=== PATIENT | female | born 1950 | race Caucasian/White ===

== ENCOUNTER 2018-05-22 01:21 | Outpatient (RCR) | payer OTHER, SELFPAY ==
[2018-05-22] MEDS: Denosumab 60 MG/ML SYR SC (11:10)
== END 2018-06-18 23:59 | disposition home or self-care (01) ==
LOC: INF 01:21
DX: M81.0 Age-related osteoporosis without current pathological fracture (principal)
CPT/HCPCS: 96372; J0897

== ENCOUNTER 2018-06-02 10:22 | Outpatient (CLI) | payer OTHER, SELFPAY ==
--- NOTE | 2018-06-02 09:00 | MERGE_ITS ---
*[facility]* *[facility]* [address] [place] [address] Date of study: 06/02/2018 Transthoracic Echocardiography M-mode, complete 2D, complete spectral Doppler, and color Doppler *STUDY CONCLUSIONS* Summary: 1. Left ventricle: The cavity size was normal. Systolic function was normal. The estimated ejection fraction was 55-60%. Wall motion was normal; there were no regional wall motion abnormalities. The study is not technically sufficient to allow evaluation of LV diastolic function. There was no evidence of elevated ventricular filling pressure by Doppler parameters. 2. Mitral valve: There was moderate regurgitation. 3. Right ventricle: The cavity size was normal. Wall thickness was normal. Systolic function was normal. 4. Atrial septum: No defect or patent foramen ovale was identified. 5. Pulmonary arteries: Pulmonary systolic pressure was in the range of 25mm Hg to 35mm Hg. 6. Inferior vena cava: The vessel was patent and normal in size. The respirophasic diameter changes were in the normal range (greater than or equal to 50%), consistent with normal central venous pressure. *PATIENT PRESENTATION* Height: 170.2cm ((67in) ) S/D Pressure: 144 / 89 Weight: 68kg ((149.7lb) ) BSA: 1.8m^2 Test start time: 09:40 AM. Test stop time: 10:00 AM. PERFORMING Unknown PERFORMING [facility] LOCAL ANNOUNCER RT Kate (Yohan)(CT), [facility] ORDERING Diana Rouse REFERRING Diana Rouse *PROCEDURE DATA* Procedure information: The patient was identified by two identifiers. This study was interpreted by [facility]. Pertinent images and digital data are archived for permanent storage and are available for subsequent review. No prior study was available for comparison. Study status: Routine. Transthoracic echocardiography. M-mode, complete 2D, complete spectral Doppler, and color Doppler. A Transthoracic Echocardiogram was performed. Scanning was performed from the parasternal, apical, subcostal, and suprasternal notch acoustic windows. Images were obtained using an [id number] cardiac ultrasound machine. Image quality was adequate. Study completion: The patient tolerated the procedure well. History: PMH: Atrial fibrillation. *CARDIAC ANATOMY* Left ventricle: The cavity size was normal. Systolic function was normal. The estimated ejection fraction was 55-60%. Wall motion was normal; there were no regional wall motion abnormalities. The study is not technically sufficient to allow evaluation of LV diastolic function. There was no evidence of elevated ventricular filling pressure by Doppler parameters. Aortic valve: Trileaflet. Doppler: There was no stenosis. There was no significant regurgitation. VTI ratio of LVOT to aortic valve: 0.92. Valve area (VTI): 2.7cm^2. Indexed valve area (VTI): 1.5cm^2/m^2. Peak velocity ratio of LVOT to aortic valve: 0.88. Valve area (Vmax): 2.6cm^2. Indexed valve area (Vmax): 1.4cm^2/m^2. Mean velocity ratio of LVOT to aortic valve: 0.86. Valve area (Vmean): 2.5cm^2. Indexed valve area (Vmean): 1.4cm^2/m^2. Mean gradient (S): 1.9mm Hg. Peak gradient (S): 3.4mm Hg. Aorta: Aortic root: The aortic root was normal in size. Ascending aorta: The ascending aorta was mildly dilated. Mitral valve: Doppler: There was no evidence for stenosis. There was moderate regurgitation. Valve area by pressure half-time: 5.8cm^2. Indexed valve area by pressure half-time: 3.2cm^2/m^2. Peak gradient (D): 4.2mm Hg. Left atrium: The atrium was normal in size. Atrial septum: No defect or patent foramen ovale was identified. Right ventricle: The cavity size was normal. Wall thickness was normal. Systolic function was normal. Pulmonic valve: Doppler: There was no evidence for stenosis. There was mild regurgitation. Peak gradient (S): 2.4mm Hg. Tricuspid valve: Doppler: There was mild regurgitation. Pulmonary artery: Poorly visualized. Pulmonary systolic pressure was in the range of 25mm Hg to 35mm Hg. Right atrium: The atrium was normal in size. Pericardium: There was no pericardial effusion. Systemic veins: Inferior vena cava: Well visualized. The vessel was patent and normal in size. The respirophasic diameter changes were in the normal range (greater than or equal to 50%), consistent with normal central venous pressure. Baseline ECG: Atrial fibrillation. Measurements Left ventricle Value Reference LV ID, ED, PLAX 4.6 cm 3.5 - 6.0 LV ID, ES, PLAX 3.3 cm 2.1 - 4.0 LV PW thickness, ED, PLAX 0.7 cm LV end-diastolic volume, 1-p A2C 66 ml LV ejection fraction, 1-p A2C 58 % LV end-diastolic volume, 1-p A4C 67 ml LV ejection fraction, 1-p A4C 50 % LV e', lateral 0.091 m/sec LV E/e', lateral 11 LV e', medial 0.121 m/sec LV E/e', medial 9 LV e', average 0.106 m/sec LV E/e', average 10 Ventricular septum Value Reference IVS thickness, ED, PLAX 0.7 cm LVOT Value Reference LVOT ID, A-P 1.9 cm LVOT area 2.9 cm^2 LVOT peak velocity, S 0.82 m/sec LVOT mean velocity, S 0.57 m/sec LVOT VTI, S 19.4 cm LVOT peak gradient, S 2.7 mm Hg LVOT mean gradient, S 1.5 mm Hg Stroke volume (SV), LVOT DP 57 ml Stroke index (SV/bsa), LVOT DP 32 ml/m^2 Aortic valve Value Reference Aortic valve peak velocity, S 0.9 m/sec Aortic valve mean velocity, S 0.66 m/sec Aortic valve VTI, S 21.0 cm Aortic mean gradient, S 1.9 mm Hg Aortic peak gradient, S 3.4 mm Hg VTI ratio, LVOT/AV 0.92 Aortic valve area, VTI 2.7 cm^2 Velocity ratio, peak, LVOT/AV 0.88 Aortic valve area, peak velocity 2.6 cm^2 Velocity ratio, mean, LVOT/AV 0.86 Aortic valve area, mean velocity 2.5 cm^2 Aortic valve area/bsa, mean velocity 1.4 cm^2/m^2 Aorta Value Reference Aortic root ID, ED 3.1 cm Ascending aorta ID, A-P, S 3.4 cm RVOT Value Reference RVOT VTI, S 13.9 cm Left atrium Value Reference LA ID, A-P, ES 3.3 cm LA ID/bsa, A-P 1.8 cm/m^2 <=2.2 LA area, ES, A4C 15.6 cm^2 8.8 - 23.4 LA area, ES, A2C 23 cm^2 LA volume/bsa, ES, 1-p A4C 23 ml/m^2 LA volume, ES, 2-p 58 ml LA volume/bsa, ES, 2-p 32 ml/m^2 LA/aortic root ratio 1.07 Mitral valve Value Reference Mitral E-wave peak velocity 1.03 m/sec Mitral deceleration time (L) 132 ms 150 - 230 Mitral pressure half-time 38 ms Mitral peak gradient, D 4.2 mm Hg Mitral valve area, PHT, DP 5.8 cm^2 Tricuspid valve Value Reference Tricuspid regurg peak velocity 2.5 m/sec Tricuspid peak RV-RA gradient 25.6 mm Hg Right atrium Value Reference RA area, ES, A4C 15.1 cm^2 8.3 - 19.5 Pulmonic valve Value Reference Pulmonic peak gradient, S 2.4 mm Hg Legend: (L) and (H) leanna values outside specified reference range. I have personally reviewed the images and have reviewed and edited the reported findings. Electronically signed by Sean Thompson MD 06/02/2018 17:05
== END 2018-06-02 10:42 ==
PROVIDERS: Visit Provider Internal Medicine Cardiovascular Disease
DX: I48.91 Unspecified atrial fibrillation (principal); I34.0 Nonrheumatic mitral (valve) insufficiency
CPT/HCPCS: 93306

== ENCOUNTER 2018-10-06 08:17 | Outpatient (CLI) | payer OTHER, SELFPAY ==
[2018-10-06 09:34] LABS: Magnesium 1.9 mg/dL (1.8-2.4)
== END 2018-10-06 08:37 ==
PROVIDERS: PCP Family Medicine; Visit Provider Internal Medicine Cardiovascular Disease
DX: I48.91 Unspecified atrial fibrillation (principal)
CPT/HCPCS: 36415; 83735

== ENCOUNTER 2018-11-21 02:48 | Outpatient (RCR) | payer OTHER, SELFPAY ==
[2018-11-21] MEDS: Denosumab 60 MG/ML SYR SC (12:41)
== END 2018-12-16 23:59 | disposition home or self-care (01) ==
LOC: INF 02:48
PROVIDERS: PCP Family Medicine; Referring Provider Internal Medicine Rheumatology; Visit Provider Family Medicine
DX: M81.0 Age-related osteoporosis without current pathological fracture (principal)
CPT/HCPCS: 96372; J0897

== ENCOUNTER 2019-01-06 00:11 | Outpatient (CLI) | payer OTHER, SELFPAY ==
--- NOTE | 2019-01-06 13:16 | DI.DEXA_ITS ---
SYMPTOM/DIAGNOSIS: IDIOPATHIC OSTEOPOROSIS, M81.8 DEXA SCAN: The scanogram reveals a compression fracture at approximately the D 9 level and is otherwise unremarkable. For the left forearm, a T score of -1.9 and a Z score of 0.0 indicate osteopenia and an increased fracture risk and represent a -4.9% interval decrease in mineralization when compared with the prior study of 01/01/17. For the left hip, a T score of -2.4 and a Z score of -1.0 indicate osteoporosis and a high fracture risk and represent a +2.1% interval increase in mineralization when compared with the prior study of 01/01/17. For the lumbar spine, a T score of -1.0 and a Z score of 1.1 are within the normal range.
== END 2019-01-06 00:31 ==
PROVIDERS: PCP Family Medicine; Visit Provider Internal Medicine Rheumatology
DX: M81.0 Age-related osteoporosis without current pathological fracture (principal); M85.88 Other specified disorders of bone density and structure, other site; M48.54XD Collapsed vertebra, not elsewhere classified, thoracic region, subsequent encounter for fracture with routine healing
CPT/HCPCS: 77080

== ENCOUNTER 2019-01-15 01:37 | Outpatient (CLI) | payer OTHER, SELFPAY ==
--- NOTE | 2019-01-15 10:29 | DI.MAMMO_ITS ---
SYMPTOMS/DIAGNOSIS: SCREENING, Z12.31 MAMMOGRAM: Mammograms were interpreted according to the usual protocol including computer analysis with CAD system, tomosynthesis and C view imaging. The breast tissue is of moderate radiodensity. When compared with prior images, there is a question regarding interval development of a lateral right breast nodule. Further assessment with rolled medial and compression spot films of the right breast and ultrasound is recommended. SUMMARY: Question posterior lateral right breast nodule. Further evaluation with a rolled medial and compression CC spot films and ultrasound is recommended. Category 0. Breast density Category B. MQSA ASSESSMENT OF FINDINGS: Incomplete: Needs additional imaging evaluation. Category 0. Patient will receive a letter notifying them of these results. BI-RADS category B. There are scattered areas of fibroglandular density.
== END 2019-01-15 01:57 ==
PROVIDERS: PCP Family Medicine; Visit Provider Family Medicine
DX: Z12.31 Encounter for screening mammogram for malignant neoplasm of breast (principal); R92.8 Other abnormal and inconclusive findings on diagnostic imaging of breast
CPT/HCPCS: 77063; 77067

== ENCOUNTER 2019-01-16 09:16 | Outpatient (CLI) | payer OTHER, SELFPAY ==
--- NOTE | 2019-01-16 15:04 | DI.COMBO_ITS ---
SYMPTOMS/DIAGNOSIS: F/U MAMMO, ? NEW LATERAL RIGHT BREAST NODULE ADDITIONAL VIEWS OF THE RIGHT BREAST AND RIGHT BREAST ULTRASOUND: Additional images are interpreted according to the usual protocol including tomosynthesis and 2D imaging. Additional views of the right breast fail to show a persistent discrete mass. The area appears to represent pectoralis muscle. Right breast ultrasound was performed. The upper outer and lower outer quadrants of the right breast were evaluated. No cystic or solid masses are seen. IMPRESSION: No definite evidence for malignancy. A six-month follow-up right mammogram is requested. Category 3, breast density B. The findings were discussed with the patient on the date of the examination. MQSA ASSESSMENT OF FINDINGS: Probably benign. Six month follow-up recommended. Category 3. Patient will receive a letter notifying them of these results. BI-RADS category B. There are scattered areas of fibroglandular density.
== END 2019-01-16 09:36 ==
PROVIDERS: PCP Family Medicine; Visit Provider Family Medicine
DX: Z12.31 Encounter for screening mammogram for malignant neoplasm of breast (principal); R92.8 Other abnormal and inconclusive findings on diagnostic imaging of breast; N64.59 Other signs and symptoms in breast
CPT/HCPCS: 76642; 77063; 77067

== ENCOUNTER 2019-06-17 01:02 | Outpatient (CLI) | payer OTHER, SELFPAY ==
--- NOTE | 2019-06-17 13:38 | DI.US_ITS ---
APPROVED REPORT Conclusion Left Ventricle : The left ventricle is normal size. There is normal LV segmental wall motion. LVEF is estimated to be 55-60%. Diastolic function is indeterminate but filling pressures appear normal. Right Ventricle : The right ventricle is normal size. The right ventricular systolic function is norm al. Atria : The left atrium size is enlarged. The right atrium size is normal. Aortic Valve : The aortic valve is normal in structure. Aortic valve is trileaflet. There is no aorti c valvular stenosis. No aortic regurgitation is present. Mitral Valve : Mitral valve regurgitation is poorly visualized but appears to be posteriorly directed and moderate. There is no significant mitral stenosis. Tricuspid Valve : The tricuspid valve leaflets are thickened , but open well. Mild to moderate tricus pid regurgitation. Great Vessels : IVC is normal in size and collapses >50% with inspiration. RVSP is between 18-22 mmH g Compared to echocardiogram dated 06/02/2018, there is no significant change. EXAM: Comprehensive 2D, Doppler, and color-flow Echocardiogram Patient Location: Out-Patient Building Construction Contractor: Rossi Andrews [facility] ([facility]) Indications: atrial fibrillation i48.91 Left Ventricle The left ventricle is normal size. The left ventricular ejection fraction is within the normal range. There is normal left ventricular wall thickness. There is normal LV segmental wall motion. Diastolic function is indeterminate but filling pressures appear normal. LVEF is estimated to be 55-60%. Right Ventricle The right ventricle is normal size. The right ventricular systolic function is normal. Atria The left atrium size is enlarged. The right atrium size is normal. Aortic Valve The aortic valve is normal in structure. Aortic valve is trileaflet. There is no aortic valvular sten osis. No aortic regurgitation is present. Mitral Valve Mitral valve leaflets are thickened. No evidence of mitral valve stenosis. Mitral valve area by press ure half-time is 4.14 cm??? Mitral valve regurgitation is poorly visualized but appears to be posteri emelina directed and moderate. Tricuspid Valve The tricuspid valve leaflets are thickened , but open well. Mild to moderate tricuspid regurgitation. The RVSP is normal. Great Vessels The aortic root is normal in size. The ascending aorta is top normal in size at 3.5cm. IVC is normal in size and collapses >50% with inspiration. Pericardium There is no pericardial effusion. 2D Dimensions IVSd 0.89 cm F: 0.6-1.0 LV EDV A2C 93.40 mL PWd 0.82 cm F: 0.6 - 1.0 LV EDV A4C 56.30 mL LVDd 4.31 cm F: 3.9 - 5.3 LA Volume Index A2C 39.85 mL/m2 LVDs 2.96 cm F: 2.2 - 3.5 LA Volume Index A4C 32.48 mL/m2 Aortic Root 3.00 cm F: 2.7 - 3.3 LA Volume Index Biplane 37.46 mL/m2 RA Area A4C 16.79 cm2 LA Area A4C 18.94 cm2 LVOT 1.90 cm (M/F) 1.5-2.5 LA Area A2C 21.84 cm2 Ascending Aorta 3.52 cm F: 2.3 - 3.1 EF AP4 60.04 % LVEF (Teich) 59.52 % EF AP2 50.86 % LVEF (Huertas's) 56.52 % F: 54 - 74 EF BP 56.52 % FS 31.37 % LV Diastology E Decel Time 183.00 (160-240 msec) E/A Ratio 1.4 MED E' 0.08 (>0.07 m/s) LV E/e MED 7.65 (<14) LAT E' 0.11 (>0.1 m/s) LV E/e LAT 5.55 (<14) Aortic Valve LVOT Area 2.84 cm2 LVOT Peak John. 0.82 m/s LVOT Mean John. 0.61 m/s LVOT Peak Gr. 2.67 mmHg SAUNDRA Vmax Index 1.17 cm2/m2 LVOT Mean Gr. 1.61 mmHg LVOT VTI 0.20 m SAUNDRA Mean John. Index 1.24 cm2/m2 AoV Peak John. 1.11 (0.5-1.3 m/s) AoV Mean John. 0.78 m/s AO Peak GR. 4.91 mmHg AO Mean GR. 2.63 (<5 mmHg) AO VTI 0.25 (0.18-0.25 m) SAUNDRA (VTI) 2.25 (2.5-4.5 cm2) SAUNDRA (VTI) Index 1.26 cm/m2 Mitral Valve MV E Max John. 0.64 (0.4-1.3 m/s) MV A Velocity 0.47 (0.4-1.3 m/s) E/A Ratio 1.34 MV Decel. Time 183.00 (160-240 msec) MV PHT 53.20 msec MVA PHT 4.14 cm2 Pulmonary Valve PV Peak Velocity 0.93 (0.5-1.5 m/s) Tricuspid Valve TR P. Velocity 2.12 m/s TV Regurg Vmax 2.12 m/s TR P. Gradient 17.94 mmHg
== END 2019-06-17 01:22 ==
PROVIDERS: PCP Family Medicine; Visit Provider Internal Medicine Cardiovascular Disease
DX: I48.91 Unspecified atrial fibrillation (principal); I36.8 Other nonrheumatic tricuspid valve disorders; I35.8 Other nonrheumatic aortic valve disorders
CPT/HCPCS: 93306

== ENCOUNTER 2019-06-17 01:33 | Outpatient (RCR) | payer OTHER, SELFPAY ==
[2019-06-17] MEDS: Denosumab 60 MG/ML SYR SC (12:21)
== END 2019-06-18 23:59 | disposition home or self-care (01) ==
LOC: INF 01:33
PROVIDERS: PCP Family Medicine; Visit Provider Family Medicine
DX: M81.0 Age-related osteoporosis without current pathological fracture (principal)
CPT/HCPCS: 96372; J0897

== ENCOUNTER 2019-06-17 12:22 | Outpatient (CLI) | payer OTHER, SELFPAY ==
[2019-06-17 14:26] LABS: Anion Gap 9.7 mmol/L (3-11); BUN 22 mg/dL (7-18); CO2 27.3 mmol/L (21.0-32.0); CREATININE 0.88 mg/dL (0.55-1.02); Calcium 9.7 mg/dL (8.5-10.1); Chloride 104 mmol/L (98-107); Glucose 87 mg/dL (70-100); Magnesium 1.8 mg/dL (1.8-2.4); Potassium 4.5 mmol/L (3.5-5.1); Sodium 141 mmol/L (136-145)
== END 2019-06-17 12:42 ==
LOC: DI 13:35 → LBO 07-06 12:22
PROVIDERS: Internal Medicine Cardiovascular Disease; PCP Family Medicine; Visit Provider Family Medicine
DX: I48.91 Unspecified atrial fibrillation (principal)
CPT/HCPCS: 36415; 80048; 83735

== ENCOUNTER 2019-07-14 00:51 | Outpatient (CLI) | payer OTHER, SELFPAY ==
--- NOTE | 2019-07-14 09:46 | DI.MAMMO_ITS ---
EXAM: MG MAMMO DIAGNOSTIC UNI CLINICAL HISTORY: 6 MO F/U, F/U TO [facility] MAMMO TECHNIQUE: Bilateral full field digital CC and MLO mammographic images were obtained with 3D tomosyn thesis and utilizing computer aided detection (CAD). COMPARISON: 2010 through 15 Jan 2019 FINDINGS: The right breast is composed of scattered fibroglandular densities, breast density category B. There are no suspicious masses or suspicious microcalcifications. The previously questioned area of nodul arity in the lateral posterior right breast is not seen on the current exam. No new abnormalities ar e seen. IMPRESSION: BI-RADS category 1, negative mammogram. Bilateral screening should be resumed in 6 months. BI-RADS Cat 1 - Negative. Breast Density - Category B - Scattered areas of fibroglandular density.
== END 2019-07-14 01:11 ==
PROVIDERS: PCP Family Medicine
DX: Z12.31 Encounter for screening mammogram for malignant neoplasm of breast (principal); R92.8 Other abnormal and inconclusive findings on diagnostic imaging of breast; N64.59 Other signs and symptoms in breast
CPT/HCPCS: 77061; 77065; G0279

== ENCOUNTER 2019-12-16 04:12 | Outpatient (RCR) | payer OTHER, SELFPAY | END 2019-12-17 23:59 | disposition home or self-care (01) | LOC: INF 04:12 | PROVIDERS: PCP Family Medicine; Visit Provider Family Medicine | DX: R69 Illness, unspecified (principal) ==

== ENCOUNTER 2019-12-22 02:05 | Outpatient (RCR) | payer OTHER, SELFPAY ==
[2019-12-22] MEDS: Denosumab 60 MG/ML SYR SC (11:38)
== END 2020-01-17 23:59 | disposition home or self-care (01) ==
LOC: INF 02:05
PROVIDERS: PCP Family Medicine; Visit Provider Internal Medicine
DX: M81.8 Other osteoporosis without current pathological fracture (principal)
CPT/HCPCS: 96372; J0897

== ENCOUNTER 2020-01-20 08:36 | Outpatient (REF) | payer OTHER, SELFPAY ==
[2020-01-20 21:22] LABS: HCT 41.5 % (36.0-46.0); HGB 13.7 g/dL (12.0-15.5); Mean Corpuscular Hemoglobin 34.5 pg (27.0-33.0); Mean Corpuscular Volume 104.5 fL (80-95); Platelet Count 254 x1000/uL (130-400); RBC 3.97 m/cumm (4.00-5.20); RBC Distribution Width 12.9 % (11.7-14.6); White Blood Cell Count 6.09 k/cumm (4.4-10.8)
[2020-01-20 21:46] LABS: ALT 29 U/L (14-59); AST 21 U/L (15-37); Albumin 3.8 g/dL (3.4-5.0); Alkaline Phosphatase 34 U/L (46-116); Anion Gap 4.5 mmol/L (3-11); BUN 13 mg/dL (7-18); Bilirubin, Total 0.6 mg/dL (0.2-1.0); CO2 31.5 mmol/L (21.0-32.0); CREATININE 0.93 mg/dL (0.55-1.02); Calcium 9.4 mg/dL (8.5-10.1); Calculated LDL 131 mg/dL (<100); Chloride 105 mmol/L (98-107); Cholesterol 237 mg/dL (<200); Glucose 92 mg/dL (74-106); HDL Cholesterol 81 mg/dL (40-60); Potassium 4.6 mmol/L (3.5-5.1); Sodium 141 mmol/L (136-145); Total Protein 6.8 g/dL (6.4-8.2); Triglyceride 126 mg/dL (<150)
== END 2020-01-20 08:56 ==
LOC: NCHCN 08:36
PROVIDERS: PCP Family Medicine; Visit Provider Family Medicine
DX: E78.5 Hyperlipidemia, unspecified (principal); I48.91 Unspecified atrial fibrillation
CPT/HCPCS: 80053; 80061; 85027

== ENCOUNTER 2020-02-29 00:45 | Outpatient (CLI) | payer OTHER, SELFPAY ==
--- NOTE | 2020-02-29 | DI.MAMMO_ITS ---
EXAM: MG MAMMO SCREENING CLINICAL HISTORY: SCREENING, Z12.39 TECHNIQUE: Bilateral full field digital CC and MLO mammographic images were obtained with 3D tomosyn thesis and utilizing computer aided detection (CAD). COMPARISON: Available for comparison. FINDINGS: Masses/Architectural Distortion: None seen. Microcalcifications: No suspicious pleomorphic-type are seen. Skin Thickening/Nipple Retraction: None. IMPRESSION: 1. No significant interval change with no specific features of malignancy noted. 2. Unless there is more urgent need, screening mammography is recommended, as per [place] guidelines. BI-RADS Category 1 - Negative Breast Density - Category B - Scattered areas of fibroglandular density A negative radiographic report should not delay biopsy if a dominant or clinically suspicious mass is present. Up to ten percent of cancers are not identified on mammography. A negative report may reinforce clinical impression. Adenosis and dense breasts may obscure an underlying neoplasm. False positive reports average 6 to 10%. Patient will receive a letter notifying them of these results.
== END 2020-02-29 01:05 ==
PROVIDERS: PCP Family Medicine; Visit Provider Family Medicine
DX: Z12.31 Encounter for screening mammogram for malignant neoplasm of breast (principal)
CPT/HCPCS: 77063; 77067

== ENCOUNTER 2020-06-09 12:39 | Outpatient (REF) | payer OTHER, SELFPAY ==
[2020-06-09 20:59] LABS: Anion Gap 5.2 mmol/L (3-11); BUN 17 mg/dL (7-18); CO2 30.8 mmol/L (21.0-32.0); CREATININE 0.89 mg/dL (0.55-1.02); Calcium 9.7 mg/dL (8.5-10.1); Chloride 103 mmol/L (98-107); Glucose 92 mg/dL (74-106); Magnesium 2.2 mg/dL (1.8-2.4); Potassium 4.6 mmol/L (3.5-5.1); Sodium 139 mmol/L (136-145)
== END 2020-06-09 12:59 ==
LOC: NCHCN 12:39
PROVIDERS: PCP Family Medicine; Visit Provider Family Medicine
DX: I48.91 Unspecified atrial fibrillation (principal)
CPT/HCPCS: 80048; 83735

== ENCOUNTER 2020-06-23 01:42 | Outpatient (RCR) | payer OTHER, SELFPAY ==
[2020-06-23] MEDS: Denosumab 60 MG/ML SYR SC (12:05)
== END 2020-07-18 23:59 | disposition home or self-care (01) ==
LOC: INF 01:42
PROVIDERS: PCP Family Medicine; Visit Provider Family Medicine
DX: M81.8 Other osteoporosis without current pathological fracture (principal)
CPT/HCPCS: 96372; J0897

== ENCOUNTER 2020-06-26 14:43 | Emergency (ER) | payer OTHER, SELFPAY ==
[2020-06-26 14:50] VITALS: BP 149/77; PULSE 61; RESP 20; TEMP 36.8; O2SAT 94
--- NOTE | 2020-06-26 15:05 | ED.GENADUL_ITS ---
Discharge Plan Disposition Patient Disposition: HOME Condition: Stable Discharge Details Clinical Impression: Atypical mycobacterial infection of lung, Hemoptysis, Lung nodule Primary Care Provider: Yahaira Araiza ED Provider: Genny Mckeon Home Meds and New Rx's Prescriptions: New amoxicillin-pot clavulanate [Augmentin] 875-125 mg tablet 1 tab PO BID 10 Days Qty: 20 RF: 0 Continued multivitamin [Multi-Day] 1 EACH tablet 1 ea PO DAILY RF: 0 sotalol [Sotalol AF] 80 MG tablet 80 mg PO QAM RF: 0 calcium carbonate-vitamin D3 1 EACH tablet 1 ea PO BID RF: 0 sotalol [Betapace AF] 120 MG tablet 120 mg PO QPM RF: 0 alprazolam 0.5 MG tablet 0.5 mg PO PRN PRNRF: 0 famotidine 20 MG tablet 20 mg PO DAILY RF: 0 zolpidem 10 MG tablet 5 mg PO HS PRN PRNRF: 0 oxybutynin chloride 5 MG tablet 5 mg PO DAILY RF: 0 cyanocobalamin (vitamin B-12) [Vitamin B-12] 1,000 mcg Tablet Extended Release 1,000 mcg PO DAILY RF: 0 bupropion HCl 100 mg tablet sustained-release 12 hr 100 mg PO DAILY RF: 0 Prolia 60 mg/mL syringe SUBCUT RF: 0 Xarelto 20 mg tablet 20 mg PO DAILY RF: 0 PreserVision AREDS-2 [id number] za-ztld-iu-mg capsule 1 tab PO DAILY RF: 0 Discharge Instructions Instructions: Pneumonitis (ED), Hemoptysis (ED) Additional Instructions: Take the antibiotics until finished. 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 Call your primary care doctor's office to confirm that this appointment has been made. Return immediately to the emergency department if you develop any worsening or new concerning symptoms such as fever, chest pain, shortness of breath or any other concerns. Discharge Data Discharge Date/Time-TO BE ENTERED AT DEPARTURE: 06/26/20 19:43 Discharge Physician: Genny Mckeon Medical Decision Making 1500 -- 70-year-old female with a history of atrial fibrillation on Xarelto, GERD, high cholesterol and anxiety presents for a cough for the past week and hemoptysis for the past [address] chest for further evaluation of abnormal findings on cxr noted by nurse practitioner at the urgent care. Patient has normal heart rate, respiratory rate and oxygen saturation. She appears nontoxic and is afebrile. She has no complaint of fever, chest pain or shortness of breath. Considering patient's remote history of smoking and chronic anticoagulation, will obtain a CT chest to rule out any acute disease. 1830 --labs reviewed and unremarkable. CT chest notes 1. No acute pulmonary embolism identified. 2. Findings of multifocal infectious small airways disease within the lungs as described above, which may be bacterial or mycobacterial etiology. Recommend clinical correlation. 3. There is a more isolated 5 x 5 mm right lower lobe nodule which is indeterminate and may be infectious but pulmonary neoplasm cannot be excluded. 4. 1.1 cm left adrenal nodule, indeterminate but likely benign. Consider 12 month follow-up adrenal CT. Images reviewed with [facility] pulmonology -findings appear likely consistent with an atypical mycobacterial infection. If antibiotics indicated would recommend treatment with Augmentin or Ceftin. No significant concern with right lower lobe lung nodule. Recommend follow-up with [facility] pulmonary clinic in the next 1 to 2 weeks. Patient reassessed and she still remains asymptomatic and feels good to go home. She was given 1 dose of Augmentin here and prescription to go. Advised to follow up with the primary care doctor for re-evaluation and to confirm that pulmonary appointment has been made. Usual and customary return precautions given prior to discharge. Medical Records Medical records reviewed: Yes I reviewed the patient's medical records. Imaging Data Radiologic Study: Radiologist's impression: CT Angiography Chest With Contrast Exam date and time: 06/26/2020 3:41 PM Age: 70 years old Clinical indication: Other: Hemoptysis, R/O acute pe TECHNIQUE: Imaging protocol: Computed tomographic angiography of the chest with intravenous contrast. 3D rendering (Not supervised by radiologist): MIP and/or 3D reconstructed images were created by the technologist. Contrast material: OMNIPAQUE 350; Contrast volume: 100 ml; Contrast route: INTRAVENOUS (IV); COMPARISON: CR LEFT RIBS TO INCLUDE CXR 10/20/2014 10:13 AM FINDINGS: Pulmonary arteries: No filling defects within the pulmonary arteries are identified to suggest pulmonary embolism. The central pulmonary arteries are not dilated. Aorta: Unremarkable. No aortic aneurysm. No aortic dissection. Lungs: There are mild pleuroparenchymal fibronodular changes at both lung apices. There is are regions of mild central peribronchial thickening. There are multifocal regions tiny subcentimeter nodular branching opacities (tree-in-bud opacities), consistent with infectious small airways disease. There is mild scarring/atelectasis within the medial segment of the right middle lobe, lingular segment of the left upper lobe and at the anterior base of the left lower lobe. There is a more isolated 5 x 5 mm lateral right lower lobe nodule on axial image 4 minutes 32, series 6 Pleural space: Unremarkable. No pneumothorax. No pleural effusion. Heart: There is no bowing of the interventricular septum or disproportionate enlargement of the right heart. There is mild overall cardiomegaly. There is no pericardial effusion. Lymph nodes: Unremarkable. No enlarged lymph nodes. Adrenals: There is a 1.1 cm left adrenal nodule which has a density 35 Hounsfield units on this postcontrast scan, indeterminate, as seen on image 615, series 7. Bones/joints: There appear to be old healed fractures of the left anterior 3rd and 4th ribs. No acute displaced fractures are identified. There is a moderate to severe anterior wedge compression deformity of the T8 vertebra with approximately 64% loss of anterior vertebral body height, which appears chronic. There is multilevel aspi-cm-bufbjjiu spondylosis of the mid and lower thoracic spine. Soft tissues: Unremarkable. IMPRESSION: 1. No acute pulmonary embolism identified. 2. Findings of multifocal infectious small airways disease within the lungs as described above, which may be bacterial or mycobacterial etiology. Recommend clinical correlation. 3. There is a more isolated 5 x 5 mm right lower lobe nodule which is indeterminate and may be infectious but pulmonary neoplasm cannot be excluded. For patients at low risk (minimal or absent history of smoking and of other known risk factors), no routine follow-up is indicated. For patients at high risk (history of smoking or of other known risk factors), consider optional CT Chest at 12 months. (Reference: Ros) 4. 1.1 cm left adrenal nodule, indeterminate but likely benign. Consider 12 month follow-up adrenal CT. (Miranda Harvey, ACR White Paper, 2017) Lab Data Lab results reviewed: Yes I reviewed the patient's lab results. Labs: Laboratory Tests Range/Units 06/26/20 06/26/20 06/26/20 15:00 15:00 15:00 WBC (4.4-10.8) 10^3/uL 8.66 RBC (3.93-5.22) 10^6/uL 4.11 Hgb (11.2-15.7) g/dL 14.1 Hct (36.0-46.0) % 43.3 MCV (80-95) fL 105.4 H MCH (27.0-33.0) pg 34.3 H MCHC (32.0-36.0) % 32.6 RDW (11.7-14.6) % 13.0 Plt Count (130-400) 10^3/uL 285 MPV (8.0-11.0) fL 10.5 Immature Gran % 0.3 Neutrophils % 59.9 Lymphocytes % 26.2 Monocytes % 10.6 Eosinophils % 2.3 Basophils % 0.7 Nucleated RBC % % 0 Absolute Neutrophils (1.2-6.7) 10^3/uL 5.18 Absolute Lymphocytes (1.2-3.4) 10^3/uL 2.27 Absolute Monocytes (0.1-0.8) 10^3/uL 0.92 H Absolute Eosinophils (0.0-0.7) 10^3/uL 0.20 Absolute Basophils (0.0-0.2) 10^3/uL 0.06 RBC Morphology See below Macrocytosis 3+ PT (9.3-11.0) sec 13.6 H INR (0.9-1.1) 1.4 H APTT (21.0-27.5) sec 30.1 H Sodium (136-145) mmol/L 138 Potassium (3.5-5.1) mmol/L 3.9 Chloride (98-107) mmol/L 99 Carbon Dioxide (21.0-32.0) mmol/L 30.0 Anion Gap (3-11) mmol/L 9.0 BUN (7-18) mg/dL 19 H Creatinine (0.55-1.02) mg/dL 0.99 Estimated GFR/1.73 m2 (mL/min/1.73m2) 55.29 Glucose (74-106) mg/dL 93 Calcium (8.5-10.1) mg/dL 9.5 Magnesium (1.8-2.4) mg/dL 2.2 Total Bilirubin (0.2-1.0) mg/dL 0.6 AST (15-37) U/L 23 ALT (14-59) U/L 25 Alkaline Phosphatase (46-116) U/L 45 L Troponin I (<0.06) ng/mL < 0.05 Total Protein (6.4-8.2) g/dL 8.4 H Albumin (3.4-5.0) g/dL 4.3 HPI General Mode of arrival: ambulatory . Date/Time Provider Initiated Documentation: 06/26/20 14:53 . Limitations to Documentation: no limitations . Information obtained by: patient . HPI Narrative: Patient is a 70-year-old female with a history of atrial fibrillation on Xarelto, osteoporosis, anxiety and hyperlipidemia who presents for cough x1 week, hemoptysis x2 days, and for possible CT chest for abnormal findings noted on chest x-ray at urgent care today. Patient states for the past week she feels that she has had chest congestion causing her to frequently cough and bring up clear mucus. She states the past 2 days she has been coughing up blood-tinged mucus. She states she saw urgent care today for these complaints and had a chest x-ray which was read by virtual radiology as negative but a nurse practitioner Servando Welch thought there was some concerning findings in the left lower lung base and referred her here for further evaluation including a CT chest. She also had a negative rapid Covid test there today. She denies any recent travel, Related Data Home Medications Medication Instructions Recorded Confirmed alprazolam 0.5 mg PO PRN PRN 12/13/15 06/26/20 calcium carbonate-vitamin D3 1 ea PO BID 12/13/15 06/26/20 famotidine 20 mg PO DAILY 12/13/15 06/26/20 multivitamin [Multi-Day] 1 ea PO DAILY 12/13/15 06/26/20 oxybutynin chloride 5 mg PO DAILY 12/13/15 06/26/20 sotalol [Betapace AF] 120 mg PO QPM 12/13/15 06/26/20 sotalol [Sotalol AF] 80 mg PO QAM 12/13/15 06/26/20 zolpidem 5 mg PO HS PRN PRN 12/13/15 06/26/20 PreserVision AREDS-2 1 tab PO DAILY 06/26/20 06/26/20 Prolia mg SUBCUT 06/26/20 Xarelto 20 mg PO DAILY 06/26/20 06/26/20 amoxicillin-pot clavulanate 1 tab PO BID 10 Days #20 tab 06/26/20 [Augmentin] bupropion HCl 100 mg PO DAILY 06/26/20 06/26/20 cyanocobalamin (vitamin B-12) 1,000 mcg PO DAILY 06/26/20 06/26/20 [Vitamin B-12] Previous Rx's Medication Instructions Recorded amoxicillin-pot clavulanate 1 tab PO BID 10 Days #20 tab 06/26/20 [Augmentin] Allergies Allergy/AdvReac Type Severity Reaction Status Date / Time ibandronate sodium AdvReac Unverified 06/26/20 14:52 [From Tyrel] General Stated Complaint: RespSymp ISRA: 3 Review of Systems All systems reviewed & are unremarkable except as noted in HPI and below Constitutional Constitutional: Reports as per HPI, Denies chills and Denies fever(s) Eyes Eyes: Denies blurry vision ENT Ears, Nose, Mouth, and Throat: Denies dizziness, Denies sore throat and Denies throat swelling Cardiovascular Cardiovascular: Denies chest pain and Denies dyspnea Respiratory Respiratory: Reports cough and Denies dyspnea Gastrointestinal Gastrointestinal: Denies abdominal pain, Denies diarrhea and Denies vomiting Genitourinary Genitourinary: Denies hematuria and Denies dysuria Musculoskeletal Musculoskeletal: Denies back pain and Denies numbness Integumentary/Breasts Skin/Breast: Denies lesions and Denies rash Neurologic Neurologic: Denies dizziness, Denies localized weakness and Denies numbness Allergic/Immunologic Allergic/Immunologic: Denies throat swelling [facility] Medical History (Updated 06/26/20 @ 19:02 by Genny Mckeon DO) Atrial fibrillation Osteoporosis Urinary incontinence Surgical History (Updated 06/04/18 @ 14:37 by [employer] [place]) Arthroplasty of knee (12/21/15) RIGHT KNEE W/PARTIAL LATERAL MENISECTOMY AND LIMITED CHONDROPLASTY OF TR OCHLEAS AND MESIAL ASCPECT OF MEDIAL FEMORAL CONDYLE/DR. HASKINS Colonoscopy - MAC (01/28/17) Social History Smoking/Tobacco Use Status: Former Tobacco Use Smoking risk assessment performed?: Yes Drug use: Never Substance use type: does not use Do you feel safe at home: Yes Do you feel safe in your relationship?: Yes Exam Const General: cooperative and healthy appearing Orientation: alert and awake HENMT Head: normal to inspection Ears: hearing grossly normal bilaterally, external ears normal and TM's normal bilaterally General nose exam: external nose normal Face and sinus: normal facial exam Mouth: oral mucosae normal Teeth and gingiva: dentition normal Throat: posterior oropharynx normal Eyes General: appearance normal, both eyes and all related structures Eyelids: eyelids normal Pupils: PERRL EOM: EOM intact bilaterally Neck Neck: normal visual inspection Lymphatic: no lymphadenopathy noted Chest Chest: normal inspection of the chest Resp Effort & Inspection: normal respiratory effort and able to speak in complete sentences Auscultation: clear to auscultation bilaterally Cardio Rate: regular rate Rhythm: regular rhythm GI Inspection: normal to inspection Palpation: soft, not firm, no guarding, no hepatosplenomegaly, no masses and nontender Auscultation: normal bowel sounds Skin General skin exam: no rashes or lesions noted Neuro General: patient alert and patient awake Cognition: normal cognition Speech: speech normal Gait: normal gait Motor: muscle tone normal throughout Sensory Exam: no sensory deficits noted Extrem General: normal to inspection, full ROM and capillary refill normal Psych Appearance: grossly normal Mental Status: mental status grossly normal Speech and Movement: speech and movement normal Affect: normal affect Thought Process: normal Course Vital Signs Vital signs: Vital Signs Temperature 98.2 F 06/26/20 14:50 Pulse 61 06/26/20 14:50 Respiratory Rate 20 06/26/20 14:50 Blood Pressure 149/77 H 06/26/20 14:50 Pulse Oximetry 94 06/26/20 14:50 Temperature 98.2 F 06/26/20 14:50 Temperature Source Skin 06/26/20 14:50 Pulse 61 06/26/20 14:50 Respiratory Rate 20 06/26/20 14:50 Blood Pressure 149/77 H 06/26/20 14:50 Blood Pressure Position Sitting 06/26/20 14:50 Pulse Oximetry 94 06/26/20 14:50 Oxygen Delivery Method Room Air 06/26/20 14:50 Oxygen Flow Rate 0 06/26/20 14:50
--- NOTE | 2020-06-26 15:30 | DI.CT_ITS ---
EXAM: CT CHEST PE CTA CLINICAL HISTORY: hemoptysis, r/o acute PE. TECHNIQUE: Imaging Protocol: Axial CT angiography was performed with multi-slice acquisition and mu lti-planar and/or 3D reconstructions. CONTRAST MATERIAL: Intravenous: Omnipaque 350 Contrast volume:structured data in ml COMPARISON: No exams were available for comparison FINDINGS: CT angiography of the chest was performed with intravenous infusion of 100 cc of Omnipaque 350. There are changes of COPD and there are multiple apparent focal pulmonary scars. There are periphera l reticulo nodular opacities, some of which have a tree in bud appearance, suspicious for multifocal mild infectious process. Additionally there are multiple small noncalcified pulmonary nodules, the l argest in the right upper lobe and right lower lobe measuring about 5 millimeters in diameter. These are indeterminate appearance but are most likely benign.. No pleural effusion. Tracheobronchial sofia e appears intact. No evidence of pulmonary embolic disease. Thoracic aorta is of normal diameter, no thoracic aortic an eurysm or dissection, major branch vessels appear intact. No mediastinal or hilar adenopathy. Images obtained through the upper abdomen show unremarkable appearance visualized portions liver, spl een, pancreas, and kidneys. There is an 11 millimeter in diameter left adrenal nodule, intermediate attenuation on this post contrast scan, follow-up CT recommended in 12 months. IMPRESSION: No evidence of pulmonary embolic disease. Findings suggesting mild multifocal infectious process. Noncalcified pulmonary nodules, the largest about 5 millimeters in diameter, follow-up chest CT recom mended in 12 months. RADIATION DOSE DELIVERED: 344.01mGy.cm Total DLP 344.01mGy.cm Total DLP 344.01mGy.cm Total DLP DATA REPOSITORY: All CT scans at this facility are submitted to the National Radiology Data Registry (NRDR) Dose Index Registry (DIR) with the [employer] (ACR). RADIATION OPTIMIZATION: All CT scans at this facility use at least one of these dose optimization te chniques: automated exposure control; mA and/or kV adjustment per patient size (includes targeted exa ms where dose is matched to clinical indication); or iterative reconstruction.
[2020-06-26 15:50] LABS: Abs Immature Grans 0.03 10^3/uL (0.0-0.06); Absolute Basophil Count 0.06 10^3/uL (0.0-0.2); Absolute Lymphocyte Count 2.27 10^3/uL (1.2-3.4); Absolute Monocyte Count 0.92 10^3/uL (0.1-0.8); Absolute Neutrophil Count 5.18 10^3/uL (1.2-6.7); Basophils % 0.7; Eosinophils % 2.3; HCT 43.3 % (36.0-46.0); HGB 14.1 g/dL (11.2-15.7); Immature Grans % 0.3; Lymphocytes % 26.2; MCH 34.3 pg (27.0-33.0); MCHC 32.6 % (32.0-36.0); MCV 105.4 fL (80-95); MPV 10.5 fL (8.0-11.0); Monocytes % 10.6; Neutrophils % 59.9; Nucleated RBC 0 %; Platelet Count 285 10^3/uL (130-400); RBC 4.11 10^6/uL (3.93-5.22); RDW-SD 50.3 fL; WBC 8.66 10^3/uL (4.4-10.8)
[2020-06-26] MEDS: Normal Saline 1,000 ML 1000 ML IV (16:00)
[2020-06-26 16:02] LABS: INR 1.4 (0.9-1.1); PTT Activated 30.1 sec (21.0-27.5); Prothrombin Time 13.6 sec (9.3-11.0)
[2020-06-26 16:05] LABS: ALT 25 U/L (14-59); AST 23 U/L (15-37); Albumin 4.3 g/dL (3.4-5.0); Alkaline Phosphatase 45 U/L (46-116); BUN 19 mg/dL (7-18); Bilirubin, Total 0.6 mg/dL (0.2-1.0); CREATININE 0.99 mg/dL (0.55-1.02); Calcium 9.5 mg/dL (8.5-10.1); Chloride 99 mmol/L (98-107); Estimated GFR 55.29 (mL/min/1.73m2); Glucose 93 mg/dL (74-106); Magnesium 2.2 mg/dL (1.8-2.4); Potassium 3.9 mmol/L (3.5-5.1); Sodium 138 mmol/L (136-145); Total Protein 8.4 g/dL (6.4-8.2); Troponin I < 0.05 ng/mL (<0.06)
[2020-06-26 16:08] LABS: Diff Comment RBC Morph Reviewed; Macrocytosis 3+
[2020-06-26] MEDS: Normal Saline - Diluent 50 ML VIAL IV (16:50)
[2020-06-26] MEDS: Omnipaque 350 MG/ML 100 ML BTL IJ (16:51)
--- NOTE | 2020-06-26 17:13 | DI.VRAD_ITS ---
PROCEDURE INFORMATION: Exam: CT Angiography Chest With Contrast Exam date and time: 06/26/2020 3:41 PM Age: 70 years old Clinical indication: Other: Hemoptysis, R/O acute pe TECHNIQUE: Imaging protocol: Computed tomographic angiography of the chest with intravenous contrast. 3D rendering (Not supervised by radiologist): MIP and/or 3D reconstructed images were created by the technologist. Contrast material: OMNIPAQUE 350; Contrast volume: 100 ml; Contrast route: INTRAVENOUS (IV); COMPARISON: CR LEFT RIBS TO INCLUDE CXR 10/20/2014 10:13 AM FINDINGS: Pulmonary arteries: No filling defects within the pulmonary arteries are identified to suggest pulmonary embolism. The central pulmonary arteries are not dilated. Aorta: Unremarkable. No aortic aneurysm. No aortic dissection. Lungs: There are mild pleuroparenchymal fibronodular changes at both lung apices. There is are regions of mild central peribronchial thickening. There are multifocal regions tiny subcentimeter nodular branching opacities (tree-in-bud opacities), consistent with infectious small airways disease. There is mild scarring/atelectasis within the medial segment of the right middle lobe, lingular segment of the left upper lobe and at the anterior base of the left lower lobe. There is a more isolated 5 x 5 mm lateral right lower lobe nodule on axial image 4 minutes 32, series 6 Pleural space: Unremarkable. No pneumothorax. No pleural effusion. Heart: There is no bowing of the interventricular septum or disproportionate enlargement of the right heart. There is mild overall cardiomegaly. There is no pericardial effusion. Lymph nodes: Unremarkable. No enlarged lymph nodes. Adrenals: There is a 1.1 cm left adrenal nodule which has a density 35 Hounsfield units on this postcontrast scan, indeterminate, as seen on image 615, series 7. Bones/joints: There appear to be old healed fractures of the left anterior 3rd and 4th ribs. No acute displaced fractures are identified. There is a moderate to severe anterior wedge compression deformity of the T8 vertebra with approximately 64% loss of anterior vertebral body height, which appears chronic. There is multilevel otae-zt-wkrhqeux spondylosis of the mid and lower thoracic spine. Soft tissues: Unremarkable. IMPRESSION: 1. No acute pulmonary embolism identified. 2. Findings of multifocal infectious small airways disease within the lungs as described above, which may be bacterial or mycobacterial etiology. Recommend clinical correlation. 3. There is a more isolated 5 x 5 mm right lower lobe nodule which is indeterminate and may be infectious but pulmonary neoplasm cannot be excluded. For patients at low risk (minimal or absent history of smoking and of other known risk factors), no routine follow-up is indicated. For patients at high risk (history of smoking or of other known risk factors), consider optional CT Chest at 12 months. (Reference: Ros) 4. 1.1 cm left adrenal nodule, indeterminate but likely benign. Consider 12 month follow-up adrenal CT. ([facility], ACR White Paper, 2017) REFERENCES: Ros Fowler, et al. Guidelines for Management of Incidental Pulmonary Nodules Detected on CT Images: From the Fleischner Society 2017. Radiology. 2017;284(1):228-243. Dictated and Authenticated by: Christian Mason MD. Ordering:GEORGIA Royal MD
[2020-06-26] MEDS: Normal Saline Flush 10 ML SYR IVP (17:58)
[2020-06-26 19:13] VITALS: BP 134/84; PULSE 71; RESP 16; TEMP 36.6; O2SAT 94
[2020-06-26] MEDS: Amox. 875/Clav. 125, 2 TABS/BTL 1 TAB PO (19:14)
[2020-06-26] MEDS: Amoxicillin 875/Clav. 125 TAB PO (19:14)
== END 2020-06-26 19:43 | disposition home or self-care (01) ==
PROVIDERS: Emergency Provider Physician Assistant; PCP Family Medicine
DX: A31.0 Pulmonary mycobacterial infection (principal); R04.2 Hemoptysis; R91.1 Solitary pulmonary nodule; Z79.01 Long term (current) use of anticoagulants; I48.91 Unspecified atrial fibrillation; Z87.891 Personal history of nicotine dependence
CPT/HCPCS: 36415; 71275; 80053; 96360; 99285; 83735; 84484; 85025; 85610; 85730; J3490

== ENCOUNTER 2020-07-20 01:03 | Outpatient (CLI) | payer OTHER, SELFPAY ==
--- NOTE | 2020-07-20 08:15 | DI.US_ITS ---
EXAM: US PELVIS TRANSVAGINAL CLINICAL HISTORY: Check uterine size,UTERINE PROLAPSE,N81.4 TECHNIQUE: Ultrasound performed using standard protocol. COMPARISON: US US ECHOCARDIOGRAM from 06/17/2019 FINDINGS: Pelvic ultrasound was performed transabdominally and transvaginally. Uterus measures 37 x 15 x 36 millimeters. Endometrial stripe is about 4 millimeters in thickness and appears fairly homogeneous. The myometrium is heterogeneous with no focal mass. No free fluid identified in the cul-de-sac. The ovaries are nonvisualized. Limited scanning of the kidneys is unremarkable. IMPRESSION: Heterogeneous appearance of myometrium which is nonspecific but which could represent diffuse uterine fibroid. The ovaries were nonvisualized. DATA REPOSITORY:
== END 2020-07-20 01:23 ==
PROVIDERS: PCP Family Medicine; Visit Provider Obstetrics & Gynecology
DX: N81.4 Uterovaginal prolapse, unspecified (principal)
CPT/HCPCS: 76830; 76856

== ENCOUNTER 2020-09-30 14:48 | Outpatient (REF) | payer OTHER, SELFPAY ==
[2020-09-30 21:07] LABS: Abs Immature Grans 0.02 10^3/uL (0.0-0.06); Absolute Basophil Count 0.06 10^3/uL (0.0-0.2); Absolute Eosinophil Count 0.26 10^3/uL (0.0-0.7); Absolute Monocyte Count 0.91 10^3/uL (0.1-0.8); Absolute Neutrophil Count 5.08 10^3/uL (1.2-6.7); Basophils % 0.7; Eosinophils % 3.2; HCT 41.4 % (36.0-46.0); HGB 13.5 g/dL (11.2-15.7); Immature Grans % 0.2; Lymphocytes % 23.1; MCH 33.8 pg (27.0-33.0); MCHC 32.6 % (32.0-36.0); MCV 103.8 fL (80-95); MPV 10.8 fL (8.0-11.0); Monocytes % 11.1; Neutrophils % 61.7; Nucleated RBC 0 %; Platelet Count 241 10^3/uL (130-400); RBC 3.99 10^6/uL (3.93-5.22); RDW 12.8 % (11.7-14.6); RDW-SD 48.9 fL; WBC 8.23 10^3/uL (4.4-10.8)
[2020-09-30 21:54] LABS: Vitamin B12 > 2000 pg/mL (193-986)
== END 2020-09-30 14:49 | disposition home or self-care (01) ==
LOC: NCHCN 14:48
PROVIDERS: PCP Family Medicine; Visit Provider Family Medicine
DX: E53.8 Deficiency of other specified B group vitamins (principal)
CPT/HCPCS: 82607; 85025

== ENCOUNTER → 2020-10-11 08:56 | Outpatient (BNVA) | payer OTHER, SELFPAY | PROVIDERS: PCP Family Medicine; Referring Provider Family Medicine; Visit Provider Surgery | DX: R59.0 Localized enlarged lymph nodes (principal); R35.0 Frequency of micturition | CPT/HCPCS: 99213; 99214 ==

== ENCOUNTER 2020-10-11 22:39 | Outpatient (REF) | payer OTHER, SELFPAY ==
[2020-10-11 11:57] LABS: Bilirubin Negative (Negative); Blood Negative (Negative); Clarity Clear (Clear); Glucose Negative (Negative); Ketones Negative (Negative); Leukocyte Esterase Small (Negative); Nitrite Negative (Negative); Urobilinogen 0.2 EU/dL (Up TO 0.2)
[2020-10-11 12:18] LABS: Bacteria Rare HPF (Negative); Casts Negative LPF (Negative); Crystals Negative HPF (Negative); Epithelial Cells Few HPF (Negative); Mucus Negative (Negative); Other Cells Rare Renal (Negative); RBC 0-2 HPF (0-2)
[2020-10-11 12:19] LABS: C & S Indicated? Yes
== END 2020-10-11 22:40 | disposition home or self-care (01) ==
LOC: NCHCN 22:39
PROVIDERS: PCP Family Medicine; Visit Provider Surgery
DX: R35.0 Frequency of micturition (principal)
CPT/HCPCS: 81003; 81015; 87086

== ENCOUNTER 2020-12-21 02:50 | Outpatient (RCR) | payer OTHER, SELFPAY ==
[2020-12-21] MEDS: Denosumab 60 MG/ML SYR SC (12:09)
== END 2021-01-16 23:59 | disposition home or self-care (01) ==
LOC: INF 02:50
PROVIDERS: PCP Family Medicine; Visit Provider Family Medicine
DX: M81.0 Age-related osteoporosis without current pathological fracture (principal)
CPT/HCPCS: 96372; J0897

== ENCOUNTER 2020-12-26 14:23 | Outpatient (REF) | payer OTHER, SELFPAY ==
[2020-12-26 21:05] LABS: Anion Gap 6.4 mmol/L (3-11); BUN 14 mg/dL (7-18); CO2 30.6 mmol/L (21.0-32.0); CREATININE 0.8 mg/dL (0.55-1.02); Calcium 9.6 mg/dL (8.5-10.1); Chloride 105 mmol/L (98-107); Glucose 87 mg/dL (74-106); Magnesium 2.1 mg/dL (1.8-2.4); Potassium 4.5 mmol/L (3.5-5.1); Sodium 142 mmol/L (136-145)
== END 2020-12-26 14:24 | disposition home or self-care (01) ==
LOC: NCHCN 14:23
PROVIDERS: PCP Family Medicine; Visit Provider Family Medicine
DX: I48.91 Unspecified atrial fibrillation (principal)
CPT/HCPCS: 80048; 83735

== ENCOUNTER 2021-03-01 11:19 | Outpatient (REF) | payer OTHER, SELFPAY ==
[2021-03-01 14:25] LABS: HCT 42.4 % (36.0-46.0); HGB 13.8 g/dL (11.2-15.7); MCH 33.4 pg (27.0-33.0); MCHC 32.5 % (32.0-36.0); MCV 102.7 fL (80-95); MPV 10.3 fL (8.0-11.0); Platelet Count 269 10^3/uL (130-400); RBC 4.13 10^6/uL (3.93-5.22); RDW 12.9 % (11.7-14.6); WBC 8.47 10^3/uL (4.4-10.8)
[2021-03-01 14:35] LABS: Anion Gap 9.7 mmol/L (3-11); BUN 13 mg/dL (7-18); CO2 28.3 mmol/L (21.0-32.0); CREATININE 0.8 mg/dL (0.55-1.02); Calcium 9.7 mg/dL (8.5-10.1); Chloride 102 mmol/L (98-107); Glucose 103 mg/dL (74-106); Sodium 140 mmol/L (136-145)
[2021-03-01 20:58] LABS: Vitamin B12 799 pg/mL (193-986)
== END 2021-03-01 11:20 | disposition home or self-care (01) ==
LOC: NCHCN 11:19
PROVIDERS: PCP Family Medicine; Visit Provider Family Medicine
DX: E78.5 Hyperlipidemia, unspecified (principal); E53.8 Deficiency of other specified B group vitamins; D75.89 Other specified diseases of blood and blood-forming organs
CPT/HCPCS: 80048; 85027; 82607

== ENCOUNTER 2021-03-09 01:28 | Outpatient (CLI) | payer OTHER, SELFPAY ==
--- NOTE | 2021-03-09 | DI.DEXA_ITS ---
Exam(s) XR DEXA BONE DENSITY W/WO GRANT EXAM: XR DEXA BONE DENSITY W/WO GRANT CLINICAL HISTORY: OSTEOPOROSIS, M81.0 TECHNIQUE: Routine DEXA evaluation of the lumbar spine, hip, or forearm. COMPARISON: Prior DXA scans, most recent being 2019. FINDINGS: Performed on a [employer] unit. Lateral image: Compression fractures in the mid-upper thoracic spine noted with kyphosis. Lumbar Spine total T-score: -0.9. Prior 2019 reading was -1.0 Hip total T-score:-2.2. Prior 2019 reading was -2.4 Independent reading at the femoral neck level yields a T-score of -2.7 Forearm total T-score: -2.4 IMPRESSION: Bone mineral density measures in the osteoporosis range due to the reading at the femoral neck level. . Fracture risk is high. Note: Any spine fracture indicates 5x risk for subsequent spine fracture and 2x risk for subsequent h ip fracture. World Health Organization criteria for BMD interpretation classify patients: Normal...... T- Score at or above -1.0 Osteopenic... T- Score between -1.0 and -2.5 Osteoporosis... T-Score at or below -2.5
--- NOTE | 2021-03-09 | DI.MAMMO_ITS ---
Exam(s) MAMMO SCREENING EXAM: MAMMO SCREENING CLINICAL HISTORY: SCREENING,Z12.31. TECHNIQUE: Bilateral full field digital CC and MLO mammographic images were obtained with 3D tomosyn thesis and utilizing computer aided detection (CAD). COMPARISON: Prior mammograms dating back to 2011, the most recent being February 2020. FINDINGS: There are no new spiculated masses nor malignant appearing microcalcification groups. There is no significant architectural distortion nor skin thickening-retraction. IMPRESSION: No radiographic evidence of malignancy. BI-RADS Category 1 - Negative Breast Density - Category B - Scattered areas of fibroglandular density Breast density Category C or D implies that the patient has dense breast tissue. Dense breast tissue can make it harder to find cancer on a mammogram. Dense breast tissue is also associated with an incr eased risk of breast cancer. This information about the result of the mammogram report was provided to the patient to raise their awareness. Use this report when you speak with the patient about their risks for breast cancer, which includes their family history. At that time, you may recommend additional screening tests (Ultrasoun d or MRI) as these tests may add significant information. A negative radiographic report should not delay biopsy if a dominant or clinically suspicious mass is present. Up to ten percent of cancers are not identified on mammography. A negative report may reinforce clinical impression. Adenosis and dense breasts may obscure an underlying neoplasm. False positive reports average 6 to 10%. Patient will receive a letter notifying them of these results.
--- NOTE | 2021-03-09 | DI.CT_ITS ---
Exam(s) CT CHEST W EXAM: CT CHEST W CLINICAL HISTORY: HEMOPTYSIS, R04.2. TECHNIQUE: Multi planar reconstructions were performed. CONTRAST MATERIAL: Omnipaque 350; 75 cc COMPARISON: No exams were available for comparison FINDINGS: CHEST: LUNGS: There is hyperinflation. There is a 7 x 5 millimeter nodular density in the superior lingular segment of the left lung located 6 millimeters in from the pleural surface. Mild increased markings are noted in the inferior lingular segment. No other nodular infiltrates evident in the left lung f ield. Tree in bud infiltrate evident in the lateral aspect of the right upper lobe and also some inf iltrate in the right middle lobe. There is a 4 millimeter noncalcified nodule in the anterior right lower lobe. There are no pleural effusions. There are no significant focal findings in the trachea. No abnormality in left mainstem bronchus. There is a 4 millimeter nodular density on the anterior wall of the right mainstem bronchus noted. This does not have the appearance of mucous. No other in traluminal findings in the mainstem bronchus. MEDIASTINUM: No hilar adenopathy. However, there are enlarged subcarinal lymph nodes. There is no a denopathy in the anterior mediastinal fat. Visualized thyroid gland unremarkable. There is no axill oracio visualized thyroid unremarkable. CARDIAC: Heart size upper normal. There is no pericardial effusion. The diameter of the ascending t horacic aorta is upper normal. No aortic dissection.Caliber of the thoracic aorta is within normal l imits. PULMONARY ARTERIES: There are no central pulmonary emboli. Opacification of more distal pulmonary ar teries is inadequate to determine if there are filling defects in these more distal vessels. Most of the contrast is in the aortic arch on this study. VISUALIZED UPPER ABDOMEN:There are no significant adrenal masses. Hepatic steatosis. No splenomegal y. OSSEOUS: Compression fracture of T8 is noted. Does not appear acute.. IMPRESSION: 1. There is hyperinflation and areas of bilateral infiltrates as described above. There is also a 7 x 5 millimeter nodular density in the superior lingular segment of the left lung. There is also a 4 millimeter noncalcified nodule in the anterior segment of right lower lobe. There is also 4 millimet er nodular density on the anterior wall of the right mainstem bronchus. Appropriate follow-up recomm ended. Sign rib 2. There is subcarinal adenopathy noted. No hilar adenopathy. 3. Nonacute appearing compression wedge type fracture of T8 noted. RADIATION DOSE DELIVERED: 426.69mGy.cm Total DLP DATA REPOSITORY: All CT scans at this facility are submitted to the National Radiology Data Registry (NRDR) Dose Index Registry (DIR) with the [employer] (ACR). RADIATION OPTIMIZATION: All CT scans at this facility use at least one of these dose optimization te chniques: automated exposure control; mA and/or kV adjustment per patient size (includes targeted exa ms where dose is matched to clinical indication); or iterative reconstruction.
[2021-03-09] MEDS: Omnipaque 350 MG/ML 100 ML BTL IV (14:57)
[2021-03-09] MEDS: Normal Saline - Diluent 50 ML VIAL IV (14:58)
== END 2021-03-09 01:48 ==
PROVIDERS: PCP Family Medicine; Visit Provider Family Medicine
DX: Z12.31 Encounter for screening mammogram for malignant neoplasm of breast (principal); S22.060A Wedge compression fracture of T7-T8 vertebra, initial encounter for closed fracture; R92.8 Other abnormal and inconclusive findings on diagnostic imaging of breast; R04.2 Hemoptysis; R59.0 Localized enlarged lymph nodes; R91.1 Solitary pulmonary nodule; R91.8 Other nonspecific abnormal finding of lung field; M81.0 Age-related osteoporosis without current pathological fracture; X58.XXXA Exposure to other specified factors, initial encounter
CPT/HCPCS: 77063; 77067; 77080; 71260; J3490

== ENCOUNTER 2021-04-03 14:44 | Outpatient (REF) | payer OTHER, SELFPAY | END 2021-04-03 14:45 | disposition home or self-care (01) | LOC: NCHCN 14:44 | PROVIDERS: PCP Family Medicine; Visit Provider Family Medicine | DX: N39.0 Urinary tract infection, site not specified (principal) | CPT/HCPCS: 87086 ==

== ENCOUNTER 2021-04-26 16:47 | Outpatient (REF) | payer OTHER, SELFPAY ==
[2021-04-26 22:18] LABS: Abs Immature Grans 0.12 10^3/uL (0.0-0.06); Absolute Basophil Count 0.09 10^3/uL (0.0-0.2); Absolute Eosinophil Count 0.59 10^3/uL (0.0-0.7); Absolute Lymphocyte Count 2.44 10^3/uL (1.2-3.4); Basophils % 0.9; Eosinophils % 5.7; HCT 37.8 % (36.0-46.0); HGB 12.4 g/dL (11.2-15.7); Immature Grans % 1.2; Lymphocytes % 23.6; MCH 33.5 pg (27.0-33.0); MCHC 32.8 % (32.0-36.0); MCV 102.2 fL (80-95); MPV 10.9 fL (8.0-11.0); Monocytes % 9.7; Neutrophils % 58.9; Nucleated RBC 0 %; Platelet Count 287 10^3/uL (130-400); RDW 13.2 % (11.7-14.6); RDW-SD 49.9 fL; WBC 10.34 10^3/uL (4.4-10.8)
== END 2021-04-26 16:48 | disposition home or self-care (01) ==
LOC: NCHCN 16:47
PROVIDERS: PCP Family Medicine; Visit Provider Family Medicine
DX: R19.7 Diarrhea, unspecified (principal)
CPT/HCPCS: 85025

== ENCOUNTER 2021-05-02 14:40 | Outpatient (REF) | payer OTHER, SELFPAY ==
[2021-05-02 21:44] LABS: Bilirubin Negative (Negative); Blood Small (Negative); Clarity Sl Cloudy (Clear); Glucose Negative (Negative); Ketones Negative (Negative); Leukocyte Esterase Moderate (Negative); Nitrite Negative (Negative); Urobilinogen 0.2 EU/dL (Up TO 0.2); pH 5.5 (5-8)
[2021-05-02 21:53] LABS: WBC >50 HPF (0-5)
[2021-05-02 21:54] LABS: C & S Indicated? No/Sq. Contamination; Casts Negative LPF (Negative); Crystals Negative HPF (Negative); Epithelial Cells Many HPF (Negative); Mucus Negative (Negative)
[2021-05-02 22:15] LABS: Vitamin B12 777 pg/mL (193-986)
== END 2021-05-02 14:41 | disposition home or self-care (01) ==
LOC: NCHCN 14:40
PROVIDERS: PCP Family Medicine; Visit Provider Nurse Practitioner Family
DX: E53.8 Deficiency of other specified B group vitamins (principal); R30.0 Dysuria
CPT/HCPCS: 81003; 81015; 82607

== ENCOUNTER 2021-06-22 02:35 | Outpatient (RCR) | payer MEDICARE, SELFPAY ==
[2021-06-22] MEDS: Denosumab 60 MG/ML SYR SC (11:55)
== END 2021-07-18 23:59 | disposition home or self-care (01) ==
LOC: INF 02:35
PROVIDERS: PCP Family Medicine; Visit Provider Family Medicine
DX: M81.0 Age-related osteoporosis without current pathological fracture (principal)
CPT/HCPCS: 96372; J0897

== ENCOUNTER 2021-06-27 01:25 | Outpatient (CLI) | payer MEDICARE, SELFPAY ==
[2021-06-27] MEDS: Inhaler, Assist Device 1 EACH MC (11:11)
[2021-06-27] MEDS: Albuterol HFA 18 GM 200 PUFF INH IH (11:11)
--- NOTE | 2021-06-30 06:47 | W.PFT ---
Date of service: 06/27/21 Time of Service: 10:09 Pulmonary Function Test Result Requesting Provider Marietta Ayala Indications: Dyspnea on exertion Interpretation Spirometry: There is moderate airflow obstruction. There is no significant bronchodilator response. Lung Volumes: Lung volumes are normal Diffusion Capacity: DIffusion is normal Airway Pressure: There is elevated airways resistance. Impression Moderate airflow obstruction with no bronchodilator response Note: In the correct clinical context this likely represents chronic bronchitis (COPD) but may also represent asthma. Clinical Correlation therefore is recommended.
== END 2021-06-27 01:26 | disposition home or self-care (01) ==
PROVIDERS: PCP Family Medicine; Visit Provider Internal Medicine Critical Care Medicine
DX: R91.8 Other nonspecific abnormal finding of lung field (principal); R06.09 Other forms of dyspnea; R05.8 Other specified cough; Z87.891 Personal history of nicotine dependence; J44.9 Chronic obstructive pulmonary disease, unspecified
CPT/HCPCS: 94060; 94726; 94729

== ENCOUNTER 2021-06-28 15:38 | Outpatient (REF) | payer MEDICARE, SELFPAY ==
[2021-06-30 15:53] LABS: COVID-19 RT-PCR UVMMC Result Negative (Negative)
== END 2021-06-28 15:39 | disposition home or self-care (01) ==
LOC: NCHCN 15:38
PROVIDERS: PCP Family Medicine; Visit Provider Family Medicine
DX: Z20.822 Contact with and (suspected) exposure to COVID-19 (principal)
CPT/HCPCS: U0003

== ENCOUNTER → 2021-07-10 09:43 | Outpatient (BNVA) | payer MEDICARE, SELFPAY | PROVIDERS: PCP Family Medicine; Referring Provider Family Medicine; Visit Provider Student in an Organized Health Care Education/Training Program | DX: M72.0 Palmar fascial fibromatosis [Dupuytren] (principal) | CPT/HCPCS: 99213 ==

== ENCOUNTER 2021-07-17 00:28 | Outpatient (CLI) | payer MEDICARE, SELFPAY ==
--- NOTE | 2021-07-17 | DI.CT_ITS ---
Exam(s) CT CHEST WO EXAM: CT CHEST WO CLINICAL HISTORY: F/U ABNL CT CHEST, R93.89, PNEUMONIA AND NODULAR DENSITY AND NODULE. TECHNIQUE: Multi planar reconstructions were performed. CONTRAST MATERIAL: None COMPARISON: CT CT CHEST W from 03/09/2021 FINDINGS: CHEST: LUNGS: In the left lung the previously described nodule in the superior lingular segment 6 millimeter s in from the pleural surface has decreased in size, presently measuring 3 millimeters. Mild para ca rdiac infiltrate in the inferior lingular segment is unchanged. However, there is now a new nodular infiltrate in the left lung contiguous with the major fissure measuring 7 x 6 millimeter. In the opposite-right lung there is a new nodular infiltrate measuring 1.7 by 0.9 cm, this in the med ial aspect of the right upper lobe (series 2/image 13) a 2 millimeter nodule posteriorly in the right upper lobe is unchanged. Tree-in-bud infiltrate lateral aspect of the right upper lobe is again not ed, exhibiting minimal change. Also similar unchanged findings in the right middle lobe. Previously described 3 millimeter nodule in the lateral aspect right lower lobe is unchanged. No other signifi cant focal right lung findings. No pleural effusions on either side. No new findings in the trachea and mainstem bronchi. MEDIASTINUM: There is no obvious hilar nor mediastinal adenopathy. Visualized thyroid unremarkable.No obvious axillary adenopathy CARDIAC: Heart size is normal. There is no pericardial effusion.Caliber of the thoracic aorta is wit hin normal limits. VISUALIZED UPPER ABDOMEN: OSSEOUS: Wedge compression fracture of T6 vertebral body is unchanged. Superior endplate Schmorl's n ode invagination of T11 is also unchanged. No new osseous lesions. No new fractures evident. IMPRESSION: 1. Although the previously described left lung nodule is decreased in size, on the present study ther e is a new 17 x 9 millimeter nodular infiltrate in the right upper lobe (located medially). This re quires appropriate close imaging follow-up.. Other unchanged lung findings. No pleural effusions no r intrathoracic adenopathy. 2. Unchanged wedge compression fracture of T6 vertebral body. RADIATION DOSE DELIVERED: 441.93mGy.cm Total DLP DATA REPOSITORY: All CT scans at this facility are submitted to the National Radiology Data Registry (NRDR) Dose Index Registry (DIR) with the [employer] (ACR). RADIATION OPTIMIZATION: All CT scans at this facility use at least one of these dose optimization te chniques: automated exposure control; mA and/or kV adjustment per patient size (includes targeted exa ms where dose is matched to clinical indication); or iterative reconstruction.
== END 2021-07-17 00:48 ==
PROVIDERS: PCP Family Medicine; Visit Provider Internal Medicine Critical Care Medicine
DX: R93.89 Abnormal findings on diagnostic imaging of other specified body structures (principal)
CPT/HCPCS: 71250

== ENCOUNTER 2021-07-24 03:00 | Outpatient (CLI) | payer MEDICARE, SELFPAY ==
[2021-07-24 12:41] LABS: Source Nasal/Nares
[2021-07-24 17:11] LABS: COVID-19 PCR Negative (Negative)
== END 2021-07-24 03:01 | disposition home or self-care (01) ==
LOC: LBO 03:00
PROVIDERS: PCP Family Medicine; Visit Provider Student in an Organized Health Care Education/Training Program
DX: Z20.822 Contact with and (suspected) exposure to COVID-19 (principal)
CPT/HCPCS: 87635

== ENCOUNTER 2021-07-25 15:11 | Outpatient (REF) | payer MEDICARE, SELFPAY ==
[2021-07-25 21:53] LABS: Anion Gap 7.4 mmol/L (3-11); BUN 19 mg/dL (7-18); CO2 30.6 mmol/L (21.0-32.0); CREATININE 0.8 mg/dL (0.55-1.02); Calcium 9.2 mg/dL (8.5-10.1); Chloride 101 mmol/L (98-107); Glucose 100 mg/dL (74-106); Magnesium 2.2 mg/dL (1.8-2.4); Potassium 4.2 mmol/L (3.5-5.1); Sodium 139 mmol/L (136-145)
== END 2021-07-25 15:12 | disposition home or self-care (01) ==
LOC: LBN 15:11
PROVIDERS: Nurse Practitioner Family; PCP Family Medicine; Visit Provider Internal Medicine Cardiovascular Disease
DX: I48.91 Unspecified atrial fibrillation (principal); H69.80 Other specified disorders of Eustachian tube, unspecified ear
CPT/HCPCS: 80048; 83735

== ENCOUNTER 2021-07-26 06:20 | Day surgery (SDC) | payer MEDICARE, SELFPAY ==
[2021-07-26 06:39] VITALS: BP 149/84; PULSE 60; RESP 17; TEMP 36.3; O2SAT 98
--- NOTE | 2021-07-26 07:03 | W.PM.DSUDISC ---
Discharge Plan Disposition Patient Disposition: HOME Condition: Good Discharge Details Reason For Visit: Bilateral Dupuytren's Contracture Attending Provider: Reinaldo Manrique Primary Care Provider: Yahaira Araiza Home Meds and New Rx's Prescriptions: New acetaminophen 500 mg tablet 500 mg PO Q6H PRN PRN (Reason: pain) Qty: 40 RF: 3 hydrocodone-acetaminophen 5-325 mg tablet 1 tab PO Q6H PRN (Reason: pain) Qty: 6 RF: 0 ibuprofen 600 mg tablet 600 mg PO TID PRN (Reason: pain) Qty: 30 RF: 3 Continued multivitamin [Multi-Day] 1 EACH tablet 1 ea PO DAILY RF: 0 sotalol [Sotalol AF] 80 MG tablet 80 mg PO QAM RF: 0 calcium carbonate-vitamin D3 1 EACH tablet 1 ea PO BID RF: 0 sotalol [Betapace AF] 120 MG tablet 120 mg PO QPM RF: 0 alprazolam 0.5 MG tablet 0.5 mg PO PRN PRNRF: 0 zolpidem 10 MG tablet 5 mg PO HS PRN PRNRF: 0 oxybutynin chloride 5 MG tablet 5 mg PO DAILY RF: 0 Prolia 60 mg/mL syringe SUBCUT RF: 0 Xarelto 20 mg tablet 20 mg PO DAILY RF: 0 PreserVision AREDS-2 [id number] op-cyee-ju-mg capsule 1 tab PO DAILY RF: 0 Discharge Instructions Additional Instructions: Dupuytren's Contracture Discharge Instructions Activity: You may use your fingers for light activity. You should limit any excessive motion or forceful gripping until the sutures have been removed. You should utilize the brace as much as possible, but especially at night. Dressings: You should keep the initial surgical dressing in place until your follow-up appointment. You should keep the dressings and the wound clean at all times. If the dressing becomes soiled or unravels you may remove it and/or change it but keep the wound covered until your follow-up. Medications: - You should take Tylenol and Ibuprofen around the clock as prescribed or per patient attendant's recommendations. - You have Hydrocodone prescribed for breakthrough pain control. Take only as needed and limit use as much as possible. This may cause constipation. Follow-up: Saturday for dressing change and wound check. Referrals: Reinaldo Manrique MD [ [facility] STAFF PHYSICIAN] - Activity:: Elevate Remove Dressings/Wound Care:: Do Not Remove Shower/Bathe:: Cover Diet:: As Tolerated Discharge Orders Discharge Orders: Discharge Order (Routine); Ordered 07/26/21 Ordered By: Reinaldo Manrique DS: Diagnosis Discharge Diagnosis (1) Dupuytren's contracture of both hands: Status: Acute
[2021-07-26] MEDS: Cephalexin 500 MG CAP 1000 MG PO (07:12)
[2021-07-26] MEDS: Sodium Bicarbonate 50 MEQ/50 ML VIAL (07:20)
[2021-07-26 08:47] VITALS: BP 148/88; PULSE 62; RESP 16; TEMP 36.5; O2SAT 97
--- NOTE | 2021-07-27 14:15 | W.PM.OP ---
Date of service: 07/26/21 Time of Service: 08:41 Operative Note Operative Note DATE OF PROCEDURE: 07/26/21 PRE-OP DIAGNOSIS: Bilateral Dupuytren's Contracture involving Little Finger PIP joint POST-OP DIAGNOSIS: same PROCEDURE: Bilateral Partial Palmar Fasciectomy with involvement of little finger SURGEON: Reinaldo Manrique ANESTHESIA TYPE: Local By Surgeon Refer to Anesthesia Record ESTIMATED BLOOD LOSS: 5 PATHOLOGY: none sent TOURNIQUET TIME: 0 COMPLICATIONS: None Patient was transported to: same day Patient's condition: stable Indications: I have seen Lucretia in clinic for symptoms of Dupuytren's with notable contracture of the PIP jont of both hands. The restricted motion limited function. I reviewed the pathology of this diagnosis. Given the contractures of the PIP joints, this met indications for intervention. I discussed treatment options to include needle aponeurotomy, collagenase injection, and partial palmar fasciectomy. I reviewed the risks of the procedure to include, but not limited to, bleeding, infection, pain, stiffness, incomplete release, recurrence ,damage to nerves or vessels. Despite these risks, the patient elected to proceed. Findings: There was a spiral cord of the left little finger extending from the abductor digiti minimi within the distal aspect of the palm onto the lateral digital sheath distal to the PIP joint. On the right little finger, there is mostly an abductor digit he minimi cord which did not spiral around the neurovascular bundle and attached similarly to the lateral digital sheath. Both of these cords were resected with passive extension to neutral. Procedure Description: Lucretia was greeted in the preoperative holding area where the correct side was identified and marked. The consent was reviewed with the patient and signed. All questions were answered. Lucretia was taken back to the operating room. The patient was placed into the supine position on the operating room table with both arms on arm board. All bony prominences were well padded. Oral prophylactic antibiotics were administered. The left arm was then prepped with Chloraprep and draped in a standard fashion with an extremity drape. Likewise, the right arm was also prepped with ChloraPrep and draped in a standard fashion with an extremity drape. A timeout to confirm correct identity, side and site, procedure, allergies, anesthesia, and medical concerns was performed. I then performed a digital block of both little fingers using 1% lidocaine with epinephrine buffered with sodium bicarbonate. Once this had a chance to set up I then expanded the blockade proximal and along the surgical site at the base of the little finger. This was allowed to set up fully and was tested before proceeding. Starting with the left little finger I performed a Anahi type incision from the palm onto the base of little finger and across the PIP joint. This dissection was carried down through the skin only. Blunt dissection was carried down below the level of the skin. There was a notable spiral cord seen with some attachments to the abductor digiti minimi over the medial aspect. Further dissection proximally identify the neurovascular bundle as it crossed under and then on top of the spiral cord. I fully dissected the proximal aspect of the cord and transected it proximally off of its attachment to ADM. I then continued to dissect the cord off of the neurovascular bundle once again transecting it distally when there was room from the neurovascular bundle. The neurovascular bundle was noted now to be fully free as it dives under the digital sheath attachments distally. I then continue to inspect for any residual cords or bands. These were transected. Further attachments and density of soft tissues from the cord onto the skin of the medial aspect of the little finger were transected. Once this was completed I was able to manually extend the PIP joint to 0 degrees. However, the skin and soft tissues did retract to about 30 degrees of a resting position. The wound was thoroughly irrigated. The skin was then closed with 4-0 nylon. This was then dressed with Xeroform, 4 x 4's, conformer dressing. An AlumaFoam splint was applied to keep the finger straight. Attention was then turned to the right little finger. Once again I performed a Evette incision biased slightly medially from the level of the distal palm onto the middle phalanx. This was taken down through the skin only. The cord was easily identifiable and appeared to be more of a abductor digiti minimi cord. It did not cross the neurovascular bundle. It was dissected circumferentially to ensure there is no attachments to the neurovascular bundle and then transected from the abductor digit minimi. It was followed out to the PIP joint and then transected from its attachments to the digital sheath. This cord tissue was removed. The finger was able to passively be extended to neutral. It was once again inspected for any other attachments were none were found. This was then thoroughly irrigated. The skin was closed with 4-0 nylon sutures. The wound was dressed with Xeroform followed by 4 x 4's and a conformer dressing. An AlumaFoam splint was applied to keep the finger straight. Lucretia tolerated the procedure well and was returned to the Same Day Surgery area in a stable condition suffering no known complication.
== END 2021-07-26 09:24 | disposition home or self-care (01) ==
PROVIDERS: PCP Family Medicine; Visit Provider Student in an Organized Health Care Education/Training Program
PROC: (CPT 26045; principal; 2021-07-26 07:30)
DX: M72.0 Palmar fascial fibromatosis [Dupuytren] (principal)
CPT/HCPCS: 26040

== ENCOUNTER → 2021-08-01 10:04 | Outpatient (BNVA) | payer MEDICARE, SELFPAY | PROVIDERS: PCP Family Medicine; Referring Provider Family Medicine | DX: Z47.89 Encounter for other orthopedic aftercare (principal); M72.0 Palmar fascial fibromatosis [Dupuytren] ==

== ENCOUNTER → 2021-08-04 10:39 | Outpatient (BNVA) | payer MEDICARE, SELFPAY | PROVIDERS: PCP Family Medicine; Referring Provider Family Medicine; Visit Provider Student in an Organized Health Care Education/Training Program | DX: Z47.89 Encounter for other orthopedic aftercare (principal); M72.0 Palmar fascial fibromatosis [Dupuytren] ==

== ENCOUNTER → 2021-08-14 10:00 | Outpatient (BNVA) | payer MEDICARE, SELFPAY | PROVIDERS: PCP Family Medicine; Referring Provider Family Medicine | DX: Z47.89 Encounter for other orthopedic aftercare (principal) ==

== ENCOUNTER → 2021-09-11 09:13 | Outpatient (BNVA) | payer MEDICARE, SELFPAY | PROVIDERS: PCP Family Medicine; Referring Provider Family Medicine; Visit Provider Student in an Organized Health Care Education/Training Program | DX: Z47.89 Encounter for other orthopedic aftercare (principal); M72.0 Palmar fascial fibromatosis [Dupuytren] ==

== ENCOUNTER 2021-09-17 14:16 | Emergency (ER) | payer MEDICARE, SELFPAY ==
[2021-09-17] VITALS (51 sets, daily range): BP systolic 128–190; BP diastolic 67–125; PULSE 53–167; RESP 11–32; TEMP 36.5; O2SAT 95–99
--- NOTE | 2021-09-17 14:15 | RT.EKG_ITS ---
APPROVED REPORT Exam: Resting ECG Reason for Exam: afib Patient Location: E HR:163 bpm ECG Measurements Heart Rate 163 AXIS DE 93 P 256 QRSd 78 QRS -61 QT 290 T 38 QTc 478 Conclusion Probable Aflutter. Left anterior fascicular block. ST depression, probably rate related.
[2021-09-17 14:31] LABS: Abs Immature Grans 0.03 10^3/uL (0.0-0.06); HGB 14.2 g/dL (11.2-15.7); MCH 34.4 pg (27.0-33.0); MCHC 32.3 % (32.0-36.0); MCV 106.5 fL (80-95); MPV 9.6 fL (8.0-11.0); Nucleated RBC 0 %; Platelet Count 286 10^3/uL (130-400); RBC 4.13 10^6/uL (3.93-5.22); RDW 14.3 % (11.7-14.6); RDW-SD 56.7 fL; WBC 12.13 10^3/uL (4.4-10.8)
--- NOTE | 2021-09-17 14:37 | W.ED.GENAD ---
Discharge Plan Disposition Patient Disposition: HOME Condition: Improving Discharge Details Clinical Impression: Atrial fibrillation, Atrial flutter with rapid ventricular response Primary Care Provider: Yahaira Araiza ED Provider: Rian Guzman Home Meds and New Rx's Prescriptions: New diltiazem HCl 60 mg capsule,extended release 12 hr 60 mg PO BID Qty: 60 RF: 0 Continued Advair HFA 115-21 mcg/actuation HFA aerosol inhaler 2 puff inhalation BID RF: 0 diltiazem HCl 120 mg capsule,extended release 12 hr 120 mg PO BID RF: 0 cyclobenzaprine 5 mg tablet 5 mg PO HS PRN (Reason: muscle spasm) Qty: 7 RF: 0 multivitamin [Multi-Day] 1 EACH tablet 1 ea PO DAILY RF: 0 calcium carbonate-vitamin D3 1 EACH tablet 1 ea PO BID RF: 0 alprazolam 0.5 MG tablet 0.5 mg PO PRN PRNRF: 0 zolpidem 10 MG tablet 5 mg PO HS PRN PRNRF: 0 Prolia 60 mg/mL syringe SUBCUT RF: 0 Xarelto 20 mg tablet 20 mg PO DAILY RF: 0 PreserVision AREDS-2 [id number] ff-dqqk-cx-mg capsule 1 tab PO DAILY RF: 0 acetaminophen 500 mg tablet 500 mg PO Q6H PRN PRN (Reason: pain) Qty: 40 RF: 3 ibuprofen 600 mg tablet 600 mg PO TID PRN (Reason: pain) Qty: 30 RF: 3 Discharge Instructions Instructions: A-fib (Atrial Fibrillation) (ED) Additional Instructions: Your work-up in the ER today included heart rate management with diltiazem, blood work, screening chest x-ray. Please increase your daily diltiazem dosing to 180 mg. Take your scheduled 120 mg dose tonight and begin a total of 180 mg per dose beginning tomorrow morning. Please call your piano technician for a follow-up appointment. As you have planned send your heart rate/heart rhythm monitor into the [facility] for result. Return to the emergency department for any acute concerns. Home to rest this evening. Medical Decision Making 71-year-old female with known atrial fibrillation for which he is anticoagulated and currently maintained on diltiazem 120mg twice daily. She has been wearing a 2-week Zio patch as she has had recurrent episodes of palpitations and rapid heart rate circulate in the mornings for the past few weeks. Today while at rest she developed rapid heart rate at home, noticed her watch told her the heart rate was approximately 160, and she presents for evaluation of same. Patient denies having chest pain or shortness of breath. No syncope. She arrives to ER with rapid atrial fibrillation with ventricular response of approximately 160. She is not in any other significant distress. Patient placed on a cardiac catheterization technician, screening labs including BNP, troponin, coags obtained. Chest x-ray without acute cardiopulmonary abnormality. Laboratories note a white count of 12, hematocrit 44, platelets 286. Electrolytes unremarkable. BUN 15 with creatinine 1.0. Troponin negative, BNP is 1002. Patient was given diltiazem IV push and started on diltiazem drip with correction of her rapid ventricular response. Patient served on cardiac catheterization technician and repeat troponin obtained. She is improved and feeling better. I do feel she will require increase in her diltiazem. Will increase from 120-180. We will have her follow-up with her piano technician in [place] for recheck. HPI General Mode of arrival: ambulatory. Date/Time Provider Initiated Documentation: 09/17/21 14:16. Limitations to Documentation: no limitations. Information obtained by: patient. History of Present Illness 71 year old F presents to the emergency department with the chief complaint of Palpitations, described as moderate, and is localized to the chest. Patient reports no radiation. Patient started experiencing this minute(s) and it has been constant. No relieving factors improve symptom(s), No exacerbating factors reported . Patient notes denies chest pain and syncope. Patient did receive the following treatments prior to arrival, none Related Data Home Medications Medication Instructions Recorded Confirmed alprazolam 0.5 mg PO PRN PRN 12/13/15 09/17/21 calcium carbonate-vitamin D3 1 ea PO BID 12/13/15 09/17/21 multivitamin [Multi-Day] 1 ea PO DAILY 12/13/15 09/17/21 zolpidem 5 mg PO HS PRN PRN 12/13/15 09/17/21 PreserVision AREDS-2 1 tab PO DAILY 06/26/20 09/11/21 Prolia mg SUBCUT 06/26/20 09/11/21 Xarelto 20 mg PO DAILY 06/26/20 09/17/21 acetaminophen 500 mg PO Q6H PRN PRN #40 tab 07/26/21 09/11/21 ibuprofen 600 mg PO TID PRN #30 tab 07/26/21 09/11/21 diltiazem HCl 120 mg 120 mg PO BID 09/11/21 09/17/21 capsule,extended release 12 hr fluticasone propionate 115 2 puff INHALATION BID 09/11/21 09/17/21 mcg-salmeterol 21 mcg/actuation HFA inhaler cyclobenzaprine 5 mg tablet 5 mg PO HS PRN #7 tab 09/14/21 diltiazem HCl 60 mg PO BID #60 cap 09/17/21 Previous Rx's Medication Instructions Recorded acetaminophen 500 mg PO Q6H PRN PRN #40 tab 07/26/21 ibuprofen 600 mg PO TID PRN #30 tab 07/26/21 cyclobenzaprine 5 mg tablet 5 mg PO HS PRN #7 tab 09/14/21 diltiazem HCl 60 mg PO BID #60 cap 09/17/21 Allergies Allergy/AdvReac Type Severity Reaction Status Date / Time ibandronate sodium AdvReac heartburn Unverified 09/11/21 09:19 [From [facility]] General Stated Complaint: Palpitatns ISRA: 3 Review of Systems Narrative: No other acute distress. Denies recent illness. 6 systems reviewed and otherwise negative PFSH All Active Problems (Updated 08/01/21 @ 14:05 by Ana Luisa Michaels) Atrial flutter with rapid ventricular response (Acute) Atrial fibrillation (Chronic) Sensorineural hearing loss of both ears (Acute) Uterine prolapse (Acute) Cystocele and rectocele with incomplete uterovaginal prolapse (Acute) Stage IV rectocele. 07/2020 #3 incontinence dish with support . 08/15/2020 76 mm short stem Gellhorn placed. Patient wishes referral to continence center at definitive surgery. Lymphadenopathy, inguinal (Acute) Dupuytren's contracture of both hands (Acute) Status post bilateral partial palmar fasciectomy with involvement of little finger DOS: 07/26/2021 Medical History B12 deficiency Osteoporosis Urinary incontinence Surgical History (Updated 08/01/21 @ 14:05 by Ana Luisa Michaels) Arthroplasty of knee (12/21/15) RIGHT KNEE W/PARTIAL LATERAL MENISECTOMY AND LIMITED CHONDROPLASTY OF TROCHLEAS AND MESIAL ASCPECT OF MEDIAL FEMORAL CONDYLE/DR. HASKINS Colonoscopy - [facility] [place] (01/28/17) History of lung biopsy Hx of vaginal surgery Social History Smoking/Tobacco Use Status: Former Tobacco Use Smoking risk assessment performed?: Yes Drug use: Never Substance use type: does not use Current gender identity: female Do you feel safe at home: Yes Do you feel safe in your relationship?: Yes Exam Narrative Exam Narrative: GEN: awake, alert, oriented 3. Pleasant, well groomed, interactive. HEAD: Normocephalic, atraumatic ENT: Mucous membranes moist, oropharynx unremarkable, External ear exam unremarkable EYES: PERRL, EOMI NECK: Full ROM, no YON, no menigismus CHEST/RESP: Nontender, clear to auscultation bilateral, no wheeze/rhonchi/rales CARDIOVASCULAR: Rapid, regular heart rate, no murmur, rub estefany. 2+ Rad pulse bilateral ABDOMEN: Soft, nontender, no mass. +Bowel sounds EXT: Full ROM, no edema, no rash Neuro: Grossly normal neurologic exam, conversant, interactive. Psych: Speech fluent, thoughts congruent, affect normal Course Vital Signs Vital signs: Vital Signs Temperature 36.5 C 09/17/21 14:19 Pulse 166 H 09/17/21 14:19 Respiratory Rate 16 09/17/21 14:19 Blood Pressure 128/105 H 09/17/21 14:19 Pulse Oximetry 95 09/17/21 14:19 Temperature 36.5 C 09/17/21 14:19 Temperature Source Temporal Artery Scan 09/17/21 14:19 Pulse 166 H 09/17/21 14:19 Respiratory Rate 16 09/17/21 14:19 Respiratory Effort 09/17/21 14:24 Blood Pressure 128/105 H 09/17/21 14:19 Blood Pressure Position Sitting 09/17/21 14:19 Pulse Oximetry 95 09/17/21 14:19 Oxygen Delivery Method Room Air 09/17/21 14:19 Oxygen Flow Rate 0 09/17/21 14:19
[2021-09-17] MEDS: Normal Saline 500 ML IV (14:40)
[2021-09-17] MEDS: dilTIAZem 25 MG/5 ML VIAL 10 MG IVP (14:42)
[2021-09-17] MEDS: dilTIAZem 125 MG in Normal Saline 100 ML 10 MG IV (14:43)
[2021-09-17 14:45] LABS: INR 1.5 (0.9-1.1); PTT Activated 34.5 sec (21.0-27.5); Prothrombin Time 14.8 sec (9.3-11.0)
[2021-09-17 14:47] LABS: ALT 25 U/L (14-59); AST 23 U/L (15-37); Albumin 4.2 g/dL (3.4-5.0); Alkaline Phosphatase 44 U/L (46-116); BUN 15 mg/dL (7-18); Bilirubin, Total 0.6 mg/dL (0.2-1.0); Calcium 9.4 mg/dL (8.5-10.1); Chloride 103 mmol/L (98-107); Glucose 98 mg/dL (74-106); Potassium 3.8 mmol/L (3.5-5.1); Sodium 139 mmol/L (136-145); Total Protein 8.1 g/dL (6.4-8.2); Troponin I < 50 ng/L (<or=60)
[2021-09-17 14:53] LABS: NT-proBNP 1002 pg/mL (<300)
[2021-09-17] MEDS: dilTIAZem 25 MG/5 ML VIAL 5 MG IVP (14:59)
--- NOTE | 2021-09-17 15:00 | DI.RAD_ITS ---
Exam(s) XR PORTABLE CHEST AP EXAM: XR PORTABLE CHEST AP CLINICAL HISTORY: rapid heart rate TECHNIQUE: 2D digital imaging was performed. COMPARISON: CT CT CHEST WO from 07/17/2021 FINDINGS: LUNGS: Apical scarring, otherwise clear. No pleural abnormality seen.Monitoring device over left [address]. HEART: Normal. MEDIASTINUM: Normal. BONES: Old rib fractures left. IMPRESSION: No acute pulmonary findings. DATA REPOSITORY: RADIATION DOSE DELIVERED:
[2021-09-17 15:05] LABS: Absolute Eosinophil Count 0.12 10^3/uL (0.0-0.7); Absolute Lymphocyte Count 3.28 10^3/uL (1.2-3.4); Absolute Monocyte Count 0.61 10^3/uL (0.1-0.8); Absolute Neutrophil Count 8.01 10^3/uL (1.2-6.7); Atypical Lymphocytes % 6; Diff Comment Manual Differential; Macrocytosis 2+; Metamyelocytes % 1
--- NOTE | 2021-09-17 15:18 | DI.VRAD_ITS ---
PROCEDURE INFORMATION: Exam: XR Chest Exam date and time: 09/17/2021 3:01 PM Age: 71 years old Clinical indication: Other: Rapid heart rate TECHNIQUE: Imaging protocol: XR of the chest. Views: 1 view. Total images: 1 COMPARISON: CT CHEST WO 07/17/2021 9:21 AM FINDINGS: Tubes, catheters and devices: Electronic device projects over the left hemithorax. Lungs: Unremarkable. No consolidation. Pleural spaces: No pleural effusion. No pneumothorax. Heart/Mediastinum: Heart size is normal for technique. Bones/joints: No acute bone abnormality. IMPRESSION: No acute cardiopulmonary abnormality. Dictated and Authenticated by: Celena May MD. Ordering:MAURI Modi MD
[2021-09-17] MEDS: LORazepam 2 MG/ML VIAL 0.5 MG IVP (15:53)
--- NOTE | 2021-09-17 17:15 | RT.EKG_ITS ---
APPROVED REPORT Exam: Resting ECG Reason for Exam: néstor conrad Patient Location: E HR:82 bpm ECG Measurements Heart Rate 82 AXIS AZ [id number] P [id number] QRSd 90 QRS -15 QT 402 T 7 QTc 469 Conclusion Atrial flutter with predominant 4:1 AV block...A-rate 333, multiple Ps
[2021-09-17 17:46] LABS: Troponin I < 50 ng/L (<or=60)
== END 2021-09-17 18:33 | disposition home or self-care (01) ==
PROVIDERS: Emergency Provider Emergency Medicine; PCP Family Medicine
DX: I48.91 Unspecified atrial fibrillation (principal); I48.92 Unspecified atrial flutter; Z79.01 Long term (current) use of anticoagulants; R00.2 Palpitations; R00.0 Tachycardia, unspecified
CPT/HCPCS: 36415; 80053; 93005; 96361; 96365; 96366; 96375; 96376; 99284; 71045; 83735; 83880; 84484; 85025; 85610; 85730; 93010; J2060

== ENCOUNTER 2021-09-29 01:15 | Outpatient (CLI) | payer MEDICARE, SELFPAY ==
--- NOTE | 2021-09-29 | DI.CT_ITS ---
Exam(s) CT CHEST WO EXAM: CT CHEST WO CLINICAL HISTORY: F/U PULMONARY NODULE, R91.1. TECHNIQUE: Imaging protocol: Axial computed tomography images were obtained and coronal and sagittal reformatted images were created and reviewed. COMPARISON: CT CT CHEST WO from 07/17/2021 FINDINGS: Tracheobronchial tree: Patent where visualized. Pulmonary parenchyma: There is a stable 3 mm nodule in the right upper lobe. There is a stable 3 mm nodule in the lateral aspect of the right lower lobe. There are no new pulmonary nodules. The left lingular nodule is stable. There are areas of scarring seen in the lungs. No new consolidating infi ltrates are present. Mediastinum and Chhaya: No dominant adenopathy or fluid collection. There is a hiatal hernia. The esop hagus is otherwise unremarkablestable mediastinal lymph nodes are present. Thyroid gland: Unremarkable. Pleura: No effusion or pneumothorax. Heart: The heart is not dilated. No coronary artery calcifications are seen. No pericardial effusion. Aorta: Thoracic aorta non-dilated. Atherosclerosis. Upper abdomen: Unremarkable. Lymph nodes: Within normal limits. Soft tissues: Unremarkable. Bones:Within normal limits for the patient's age. Stable thoracic compression deformity. No acute f racture is seen. IMPRESSION: Stable pulmonary nodules. In high risk patients, a [address] scan of the chest should be considered. (Alberto et al, 2017). RADIATION DOSE DELIVERED: 417.01mGy.cm Total DLP 417.01mGy.cm Total DLP DATA REPOSITORY: All CT scans at this facility are submitted to the National Radiology Data Registry (NRDR) Dose Index Registry (DIR) with the [employer] ([employer]). RADIATION OPTIMIZATION: All CT scans at this facility use at least one of these dose optimization te chniques: automated exposure control; mA and/or kV adjustment per patient size (includes targeted exa ms where dose is matched to clinical indication); or iterative reconstruction.
== END 2021-09-29 01:35 ==
PROVIDERS: PCP Family Medicine; Visit Provider Family Medicine
DX: R91.1 Solitary pulmonary nodule (principal); J98.4 Other disorders of lung
CPT/HCPCS: 71250

== ENCOUNTER → 2021-10-02 10:47 | Outpatient (BNVA) | payer MEDICARE, SELFPAY | PROVIDERS: PCP Family Medicine; Visit Provider Student in an Organized Health Care Education/Training Program | DX: Z47.89 Encounter for other orthopedic aftercare (principal); M72.0 Palmar fascial fibromatosis [Dupuytren] ==

== ENCOUNTER 2021-12-27 00:56 | Outpatient (RCR) | payer MEDICARE, SELFPAY ==
[2021-12-27] MEDS: Denosumab 60 MG/ML SYR SC (10:13)
== END 2022-01-16 23:59 | disposition home or self-care (01) ==
LOC: INF 00:56
PROVIDERS: PCP Family Medicine; Visit Provider Family Medicine
DX: M81.0 Age-related osteoporosis without current pathological fracture (principal)
CPT/HCPCS: 96372; J0897

== ENCOUNTER 2022-07-02 09:03 | Outpatient (RCR) | payer MEDICARE, SELFPAY ==
[2022-07-02] MEDS: Denosumab 60 MG/ML SYR SC (10:30)
== END 2022-07-18 23:59 | disposition home or self-care (01) ==
LOC: INF 09:03
PROVIDERS: PCP Family Medicine; Visit Provider Family Medicine
DX: M81.0 Age-related osteoporosis without current pathological fracture (principal)
CPT/HCPCS: 96372; J0897

== ENCOUNTER 2022-07-10 16:41 | Outpatient (REF) | payer MEDICARE, SELFPAY ==
[2022-07-10 21:25] LABS: Anion Gap 4.3 mmol/L (3-11); BUN 23 mg/dL (7-18); CO2 32.7 mmol/L (21.0-32.0); CREATININE 1.1 mg/dL (0.55-1.02); Calcium 9.6 mg/dL (8.5-10.1); Chloride 97 mmol/L (98-107); Estimated GFR 53.06 (mL/min/1.73m2); Glucose 97 mg/dL (74-106); Potassium 5.1 mmol/L (3.5-5.1); Sodium 134 mmol/L (136-145)
== END 2022-07-10 16:42 | disposition home or self-care (01) ==
LOC: NCHCN 16:41
PROVIDERS: PCP Family Medicine; Visit Provider Family Medicine
DX: I10 Essential (primary) hypertension (principal)
CPT/HCPCS: 80048

== ENCOUNTER 2022-07-17 14:07 | Outpatient (REF) | payer MEDICARE, SELFPAY ==
[2022-07-17 15:05] LABS: Anion Gap 8.7 mmol/L (3-11); BUN 13 mg/dL (7-18); CO2 29.3 mmol/L (21.0-32.0); CREATININE 0.7 mg/dL (0.55-1.02); Calcium 9.6 mg/dL (8.5-10.1); Chloride 97 mmol/L (98-107); Estimated GFR 91.26 (mL/min/1.73m2); Glucose 89 mg/dL (74-106); Potassium 4.6 mmol/L (3.5-5.1); Sodium 135 mmol/L (136-145)
== END 2022-07-17 14:08 | disposition home or self-care (01) ==
LOC: NCHCN 14:07
PROVIDERS: PCP Family Medicine; Visit Provider Family Medicine
DX: I10 Essential (primary) hypertension (principal)
CPT/HCPCS: 80048

== ENCOUNTER → 2022-08-14 01:54 | Outpatient (CLI) | payer MEDICARE, SELFPAY ==
--- NOTE | 2022-08-14 | DI.MAMMO_ITS ---
Exam(s) MAMMO SCREENING EXAM: MAMMO SCREENING CLINICAL HISTORY: SCREENING, Z12.31. TECHNIQUE: Bilateral full field digital CC and MLO mammographic images were obtained with 3D tomosyn thesis and utilizing computer aided detection (CAD). COMPARISON: Prior mammograms were reviewed. FINDINGS: There has been no significant change in the appearance and distribution of the fibroglandular tissue. There are no new spiculated masses nor malignant appearing microcalcification groups. There is no significant architectural distortion nor skin thickening-retraction. IMPRESSION: No radiographic evidence of malignancy. BI-RADS Category 1 - Negative Breast Density - Category B - Scattered areas of fibroglandular density Breast density Category C or D implies that the patient has dense breast tissue. Dense breast tissue can make it harder to find cancer on a mammogram. Dense breast tissue is also associated with an incr eased risk of breast cancer. This information about the result of the mammogram report was provided to the patient to raise their awareness. Use this report when you speak with the patient about their risks for breast cancer, which includes their family history. At that time, you may recommend additional screening tests (Ultrasoun d or MRI) as these tests may add significant information. A negative radiographic report should not delay biopsy if a dominant or clinically suspicious mass is present. Up to ten percent of cancers are not identified on mammography. A negative report may reinforce clinical impression. Adenosis and dense breasts may obscure an underlying neoplasm. False positive reports average 6 to 10%. Patient will receive a letter notifying them of these results.
== END ==
PROVIDERS: PCP Family Medicine; Visit Provider Family Medicine
DX: Z12.31 Encounter for screening mammogram for malignant neoplasm of breast (principal)
CPT/HCPCS: 77063; 77067

== ENCOUNTER 2022-09-03 15:39 | Outpatient (REF) | payer MEDICARE, SELFPAY | END 2022-09-03 15:40 | disposition home or self-care (01) | LOC: NCHCN 15:39 | PROVIDERS: PCP Family Medicine; Visit Provider Family Medicine | DX: R35.0 Frequency of micturition (principal) | CPT/HCPCS: 87086 ==

== ENCOUNTER 2022-10-17 15:56 | Outpatient (REF) | payer MEDICARE, SELFPAY ==
[2022-10-17 21:26] LABS: Abs Immature Grans 0.02 10^3/uL (0.0-0.06); Absolute Basophil Count 0.06 10^3/uL (0.0-0.2); Absolute Eosinophil Count 0.16 10^3/uL (0.0-0.7); Absolute Lymphocyte Count 1.98 10^3/uL (1.2-3.4); Absolute Monocyte Count 0.73 10^3/uL (0.1-0.8); Absolute Neutrophil Count 4.51 10^3/uL (1.2-6.7); Basophils % 0.8; Eosinophils % 2.1; Immature Grans % 0.3; Lymphocytes % 26.5; MCH 34.2 pg (27.0-33.0); MCHC 32.5 % (32.0-36.0); MCV 105 fL (80-95); MPV 10.8 fL (8.0-11.0); Monocytes % 9.8; Neutrophils % 60.5; Platelet Count 250 10^3/uL (130-400); RDW 13.8 % (11.7-14.6); RDW-SD 54.2 fL; WBC 7.46 10^3/uL (4.4-10.8)
[2022-10-17 21:43] LABS: ALT 22 U/L (14-59); AST 22 U/L (15-37); Albumin 3.9 g/dL (3.4-5.0); Alkaline Phosphatase 38 U/L (46-116); Anion Gap 6.3 mmol/L (3-11); BUN 19 mg/dL (7-18); Bilirubin, Total 0.5 mg/dL (0.2-1.0); CO2 29.7 mmol/L (21.0-32.0); CREATININE 0.8 mg/dL (0.55-1.02); Calcium 9.6 mg/dL (8.5-10.1); Chloride 103 mmol/L (98-107); Estimated GFR 77.75 (mL/min/1.73m2); Glucose 92 mg/dL (74-106); Potassium 5.1 mmol/L (3.5-5.1); Sodium 139 mmol/L (136-145); Total Protein 7.6 g/dL (6.4-8.2)
[2022-10-17 22:16] LABS: Diff Comment RBC Morph Reviewed; Macrocytosis 1+; Stomatocytes 2+
== END 2022-10-17 15:57 | disposition home or self-care (01) ==
LOC: NCHCN 15:56
PROVIDERS: PCP Family Medicine; Visit Provider Family Medicine
DX: N39.0 Urinary tract infection, site not specified (principal); I10 Essential (primary) hypertension
CPT/HCPCS: 80053; 85025; 87086

== ENCOUNTER 2022-11-26 00:20 | Outpatient (CLI) | payer MEDICARE, SELFPAY ==
--- NOTE | 2022-11-26 | DI.CT_ITS ---
Exam(s) CT ABDOMEN PELVIS W EXAM: CT ABDOMEN PELVIS W CLINICAL HISTORY: INGUINAL LYMPHADENOPATHY LEFT R59.0 TECHNIQUE: Imaging Protocol: Axial computed tomography images with coronal and sagittal reformatted images were created and reviewed CONTRAST MATERIAL: Intravenous: Omnipaque 350 Contrast volume:1 Gauthier mL Oral: Yes COMPARISON: CT CT CHEST PE CTA from 06/26/2020 FINDINGS: ABDOMEN: Lung Bases: There is scarring or atelectasis in the lung bases. Liver: Normal density. There is a stable cyst in the right lobe of the liver. No suspicious hepatic m asses are seen. Portal, Superior Mesenteric, and Splenic Veins: Unremarkable. Gallbladder and Biliary Tract: No radiodense calculus or dilation. Pancreas: Normal density, no abnormal calcifications or inflammatory process. Spleen: Normal. Adrenals: No masses seen. Kidneys: Normal size, contour and axis. No radiodense stones or obstructive uropathy. No masses seen. Abdominal Aorta: Abdominal portion non-dilated. Atherosclerosis. Bowel: There is diverticulosis of the colon, but no evidence of acute diverticulitis. There is no av dence of bowel obstruction or bowel wall thickening. There is no evidence of appendicitis. Peritoneal Cavity: No ascites, collection or mesenteric inflammatory response. No free air. Lymph Nodes: Within normal limits. Bones: Within normal limits for the patient's age. Soft Tissues: Unremarkable. PELVIS: Bladder: Symmetric distention, no gross wall thickening. Reproductive Organs: Unremarkable as visualized. Lymph Nodes: Within normal limits. Bones: Within normal limits for the patient's age. IMPRESSION: 1. No acute abdominal or pelvic process. 2. No abdominal or pelvic adenopathy. RADIATION DOSE DELIVERED: 646.28mGy.cm Total DLP DATA REPOSITORY: All CT scans at this facility are submitted to the National Radiology Data Registry (NRDR) Dose Index Registry (DIR) with the [employer] ([employer]CR). RADIATION OPTIMIZATION: All CT scans at this facility use at least one of these dose optimization te chniques: automated exposure control; mA and/or kV adjustment per patient size (includes targeted exa ms where dose is matched to clinical indication); or iterative reconstruction.
[2022-11-26] MEDS: Barium Sulfate 2% W/V-Berry Smoothie 450 ML BTL PO ×2 (11:34→11:35)
[2022-11-26 12:03] LABS: CREATININE 0.8 mg/dL (0.55-1.02); Estimated GFR 77.75 (mL/min/1.73m2)
[2022-11-26] MEDS: Omnipaque 350 MG/ML 500 ML BTL-Imaging package IJ (14:00)
[2022-11-26] MEDS: Normal Saline - Diluent 50 ML VIAL IJ (14:01)
== END 2022-11-26 00:40 ==
LOC: DI 00:21
PROVIDERS: PCP Family Medicine; Visit Provider Nurse Practitioner Family
DX: R59.0 Localized enlarged lymph nodes (principal)
CPT/HCPCS: 74177; 82565

== ENCOUNTER → 2023-05-02 01:27 | Outpatient (CLI) | payer MEDICARE, SELFPAY ==
--- NOTE | 2023-05-02 | DI.DEXA_ITS ---
Exam(s) XR DEXA BONE DENSITY W/WO GRANT EXAM: XR DEXA BONE DENSITY W/WO GRANT CLINICAL HISTORY: OSTEOPOROSIS, M81.0 TECHNIQUE: Aginova C densitometer analysis of left hip, lumbar spine and left forearm. Lat eral survey image of the thoracic and lumbar spine. COMPARISON: CR XR DEXA BONE DENSITY W/WO GRANT from 03/09/[address] CHEST WO from 09/29/2021 FINDINGS: Lateral view of the thoracic and lumbar spine shows a mild L1 compression fracture. Moderate T7 comp ression fracture with anterior wedging. Accentuated thoracic kyphosis. Stable appearance from chest CT. Bone mineral density measurements of the lumbar spine correspond to a total T-score of -0.7, in the normal range. This represents a 1.9 percent increase from 2020 and 13.0 percent increase from 2014. The findings could in part be secondary to worsening of degenerative changes. Bone mineral density measurements of the left hip correspond to a total T-score of -2.9. The femoral neck T-score is negative 2.9, in the osteoporotic range. This represents a 12.4 percent decrease f rom 2020 a 6.5 percent decrease from 2014.. Theleft forearm bone mineral density measurements correspond to a T-score of the distal 3rd of -1.8, in the osteopenic range. This is not significantly changed from prior exams.. IMPRESSION: Normal bone mineral density of the lumbar spine. Osteoporosis of the hip. Osteopenia of the forearm.
== END ==
PROVIDERS: PCP Family Medicine; Visit Provider Family Medicine
DX: Z13.820 Encounter for screening for osteoporosis (principal); M81.0 Age-related osteoporosis without current pathological fracture
CPT/HCPCS: 77080

== ENCOUNTER 2023-06-19 04:54 | Outpatient (RCR) | payer MEDICARE, SELFPAY ==
[2023-06-19] MEDS: Denosumab 60 MG/ML SYR SC (11:40)
== END 2023-07-18 23:59 | disposition home or self-care (01) ==
LOC: INF 04:54
PROVIDERS: PCP Family Medicine; Visit Provider Family Medicine
DX: M81.0 Age-related osteoporosis without current pathological fracture (principal)
CPT/HCPCS: 96372; J0897

== ENCOUNTER → 2023-07-24 01:30 | Outpatient (CLI) | payer MEDICARE, SELFPAY ==
--- NOTE | 2023-07-24 | DI.CT_ITS ---
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 COMPARISON: CT CT CHEST WO from 09/29/2021 FINDINGS: Small hiatal hernia. Pulmonary parenchyma: Areas of bilateral scarring again noted greatest in the upper lobes and as well as lingula anteriorly. Mildly increased vague nodular infiltrates seen in the right upper lobe, new since prior. Some interval worsening of nodular infiltrate seen laterally in the right lower lobe. No consolidation. No dominant measurable mass. Tracheobronchial tree: No bronchiectasis or mucous plugging. Mediastinum and Chhaya: No dominant adenopathy or fluid collection. Pleura: No effusion. No pneumothorax. Heart: The left atrium is mildly dilated. Mild coronary artery calcifications are seen. Aorta: Thoracic aorta non-dilated. Mild atherosclerotic changes. Upper abdomen: Unremarkable. Bones: Degenerative changes in the spine. Stable compression fractures midthoracic and upper lumba r spine. Soft tissues: Unremarkable. IMPRESSION: New patchy infiltrate right upper lobe. Increasing grouping of nodular infiltrate in the right lower lobe. Some interval worsening of lingular scarring. RADIATION DOSE DELIVERED: Total DLP DATA REPOSITORY: All CT scans at this facility are submitted to the National Radiology Data Registry (NRDR) Dose Index Registry (DIR) with the [employer] (ACR). RADIATION OPTIMIZATION: All CT scans at this facility use at least one of these dose optimization te chniques: automated exposure control; mA and/or kV adjustment per patient size (includes targeted exa ms where dose is matched to clinical indication); or iterative reconstruction.
[2023-07-24 13:45] LABS: Estimated GFR 59.12 (mL/min/1.73m2)
[2023-07-24] MEDS: Normal Saline - Diluent 50 ML VIAL IJ (14:28)
[2023-07-24] MEDS: Omnipaque 350 MG/ML 100 ML BTL IJ (14:30)
== END ==
PROVIDERS: PCP Family Medicine; Visit Provider Family Medicine
DX: R91.8 Other nonspecific abnormal finding of lung field (principal); A31.2 Disseminated mycobacterium avium-intracellulare complex (DMAC)
CPT/HCPCS: 71260; 82565; J3490

== ENCOUNTER → 2023-08-06 11:05 | Outpatient (BNVA) | payer MEDICARE, SELFPAY | PROVIDERS: PCP Family Medicine; Referring Provider Family Medicine; Visit Provider Physical Therapy Assistant | DX: I73.9 Peripheral vascular disease, unspecified (principal); R09.89 Other specified symptoms and signs involving the circulatory and respiratory systems | CPT/HCPCS: 93922 ==

== ENCOUNTER → 2023-09-05 02:30 | Outpatient (CLI) | payer MEDICARE, SELFPAY ==
--- NOTE | 2023-09-05 | DI.MAMMO_ITS ---
Exam(s) MAMMO SCREENING EXAM: MAMMO SCREENING CLINICAL HISTORY: SCREENING MAMMO FOR BREAST CANCER Z12.31 TECHNIQUE: Mammograms were interpreted according to the usual protocol including computer analysis w [employer] CAD system, tomosynthesis and C-view imaging. COMPARISON: 2013 through 2021 FINDINGS: The breasts are composed of scattered fibroglandular densities, Breast Density category B. No suspicious masses or suspicious microcalcifications are seen. No skin thickening or abnormal axillary lymph nodes are seen. There has been no significant change from prior exams. IMPRESSION: BI-RADS Category 1, Negative mammogram Yearly screening mammography is recommended. Breast Density - Category B, scattered fibroglandular densities. A negative radiographic report should not delay biopsy if a dominant or clinically suspicious mass is present. Up to ten percent of cancers are not identified on mammography. A negative report may reinforce clinical impression. Adenosis and dense breasts may obscure an underlying neoplasm. False positive reports average 6 to 10%. Patient will receive a letter notifying them of these results.
== END ==
PROVIDERS: PCP Family Medicine; Visit Provider Family Medicine
DX: Z12.31 Encounter for screening mammogram for malignant neoplasm of breast (principal)
CPT/HCPCS: 77063; 77067

== ENCOUNTER 2023-10-08 09:11 | Outpatient (REF) | payer MEDICARE, SELFPAY ==
[2023-10-08 14:35] LABS: HCT 38.7 % (36.0-46.0); HGB 12.5 g/dL (11.2-15.7); MCH 33.7 pg (27.0-33.0); MCHC 32.3 % (32.0-36.0); MCV 104 fL (80-95); MPV 10.3 fL (8.0-11.0); Platelet Count 250 10^3/uL (130-400); RBC 3.71 10^6/uL (3.93-5.22); RDW 14.4 % (11.7-14.6); RDW-SD 56.2 fL
[2023-10-08 15:04] LABS: ALT 30 U/L (14-59); AST 24 U/L (15-37); Albumin 3.7 g/dL (3.4-5.0); Alkaline Phosphatase 49 U/L (46-116); Anion Gap 7.4 mmol/L (3-11); BUN 16 mg/dL (7-18); Bilirubin, Total 0.5 mg/dL (0.2-1.0); CO2 30.6 mmol/L (21.0-32.0); CREATININE 0.8 mg/dL (0.55-1.02); Calcium 9.2 mg/dL (8.5-10.1); Calculated LDL 58 mg/dL (<100); Chloride 105 mmol/L (98-107); Cholesterol 169 mg/dL (<200); Estimated GFR 77.27 (mL/min/1.73m2); Glucose 93 mg/dL (74-106); HDL Cholesterol 96 mg/dL (40-60); Potassium 5.1 mmol/L (3.5-5.1); Sodium 143 mmol/L (136-145); Total Protein 7.1 g/dL (6.4-8.2); Triglyceride 76 mg/dL (<150)
[2023-10-08 15:15] LABS: Vitamin D 25 Total 59.4 ng/mL (30-100)
== END 2023-10-08 09:12 | disposition home or self-care (01) ==
LOC: NCHCN 09:11
PROVIDERS: PCP Family Medicine; Referring Provider Family Medicine; Visit Provider Family Medicine
DX: I10 Essential (primary) hypertension (principal); M81.0 Age-related osteoporosis without current pathological fracture; Z00.00 Encounter for general adult medical examination without abnormal findings
CPT/HCPCS: 80053; 80061; 82306; 85027

== ENCOUNTER 2023-12-19 04:45 | Outpatient (RCR) | payer MEDICARE, SELFPAY ==
[2023-12-19] MEDS: Denosumab 60 MG/ML SYR SC (11:06)
== END 2024-01-17 23:59 | disposition home or self-care (01) ==
LOC: INF 04:45
PROVIDERS: PCP Family Medicine; Visit Provider Family Medicine
DX: M81.0 Age-related osteoporosis without current pathological fracture (principal)
CPT/HCPCS: 96372; J0897

== ENCOUNTER 2024-01-07 13:01 | Emergency (ER) | payer MEDICARE, SELFPAY ==
--- NOTE | 2024-01-07 13:00 | RT.EKG_ITS ---
APPROVED REPORT Exam: Resting ECG Reason for Exam: Dizziness Patient Location: E HR:77 bpm ECG Measurements Heart Rate 77 AXIS WY 157 P 44 QRSd 93 QRS -13 QT 388 T 19 QTc 439 Conclusion Sinus rhythm...normal P axis, V-rate 60- 99 sinus rhtyhm, normal axis, normal intervals, non ischemic
[2024-01-07 13:07] VITALS: BP 151/117; PULSE 96; RESP 15; TEMP 37.6; O2SAT 100
--- NOTE | 2024-01-07 13:15 | DI.US_ITS ---
Exam(s) US LOWER EXTREMITY VENOUS RT EXAM: US LOWER EXTREMITY VENOUS RT CLINICAL HISTORY: leg swelling, pain at medial thigh. TECHNIQUE: Lower extremity venous ultrasound performed using grayscale, color-flow, and spectral Do ppler analysis. COMPARISON: No exams were available for comparison FINDINGS: The common femoral, femoral and popliteal veins demonstrate normal compressibility, augmentation, and color Doppler. The posterior tibial veins are patent. No saphenous vein thrombosis or other superfi cial venous thrombosis is seen. No hematoma or Umaña's cyst is seen. IMPRESSION: Negative lower extremity ultrasound. No evidence of DVT. DATA REPOSITORY:
--- NOTE | 2024-01-07 13:16 | ED.GENADUL_ITS ---
Discharge Plan Disposition Patient Disposition: Home Condition: Stable Discharge Details Clinical Impression: Dizziness of unknown cause Primary Care Provider: Yahaira Araiza ED Provider: Jacques Hickman Home Meds and New Rx's Prescriptions: Continued sotalol 80 mg tablet 80 mg PO QAM sotalol 120 mg tablet 120 mg PO QPM atorvastatin 40 mg tablet 40 mg PO DAILY PreserVision AREDS 4,296 mcg-226 mg-90 mg capsule 1 cap PO BID diphenoxylate-atropine [Lomotil] 2.5-0.025 mg tablet 1 tab PO DAILY fluticasone propionate [Flovent HFA] 220 mcg/actuation HFA aerosol inhaler 1 puff inhalation BID multivitamin [Multi-Day] 1 EACH tablet 1 ea PO DAILY calcium carbonate-vitamin D3 1 EACH tablet 1 ea PO BID alprazolam 0.5 MG tablet 0.5 mg PO PRN PRN zolpidem 10 MG tablet 5 mg PO HS PRN PRN Prolia 60 mg/mL syringe SUBCUT Xarelto 20 mg tablet 20 mg PO DAILY acetaminophen 500 mg tablet 500 mg PO Q6H PRN PRN (Reason: pain) Qty: 40 3RF ibuprofen 600 mg tablet 600 mg PO TID PRN (Reason: pain) Qty: 30 3RF HPI General Date/Time Provider Initiated Documentation: 01/07/24 13:11 . HPI Narrative: 73 year-old female presents to ED today by POV/ambulating with her friend with a chief complaint of dizzy spells for the past several weeks, had a fall this past Saturday while bending over to fix a doormat injuring her R knee and hitting her head- on thinners, did not present to ED for this fall. Quality described as just random spells of dizziness, at rest and while doing activities- no chest pain, no radiation to shortness of breath, fever, headache, visual changes- patient cannot discern whether she feels dizzy or vertiginous, has had some instability of gait lately. Severity is described as moderate. Palliating factors include nothing specific attempted. Provoking factors include has longstanding atrial fibrillation. Patient is anticoagulated on Xarelto. Related Data Home Medications Medication Instructions Recorded Confirmed alprazolam 0.5 mg tablet 0.5 mg PO PRN PRN 12/13/15 01/07/24 calcium carbonate 600 mg-vitamin 1 ea PO BID 12/13/15 08/08/23 D3 5 mcg (200 unit) tablet multivitamin (Multi-Day tablet) 1 ea PO DAILY 12/13/15 08/08/23 zolpidem 10 mg tablet 5 mg PO HS PRN PRN 12/13/15 08/08/23 denosumab 60 mg/mL subcutaneous mg subcut 06/26/20 08/08/23 syringe (Prolia) rivaroxaban 20 mg tablet (Xarelto) 20 mg PO DAILY 06/26/20 08/08/23 acetaminophen 500 mg tablet 500 mg PO Q6H PRN PRN pain #40 tabs 07/26/21 01/07/24 ibuprofen 600 mg tablet 600 mg PO TID PRN pain #30 tabs 07/26/21 08/08/23 sotalol 120 mg tablet 120 mg PO QPM 10/02/21 08/08/23 sotalol 80 mg tablet 80 mg PO QAM 10/02/21 08/08/23 atorvastatin 40 mg tablet 40 mg PO DAILY 08/06/23 08/08/23 diphenoxylate-atropine 2.5 1 tab PO DAILY 08/06/23 08/08/23 mg-0.025 mg tablet (Lomotil) fluticasone propionate 220 1 puff inhalation BID 08/06/23 08/08/23 mcg/actuation HFA aerosol inhaler (Flovent HFA) vitamins A,C,Q-pjda-rfmtxf 4,296 1 cap PO BID 08/06/23 08/08/23 mcg-226 mg-90 mg capsule (PreserVision AREDS) Previous Rx's Medication Instructions Recorded acetaminophen 500 mg tablet 500 mg PO Q6H PRN PRN pain #40 tabs 07/26/21 ibuprofen 600 mg tablet 600 mg PO TID PRN pain #30 tabs 07/26/21 Allergies Allergy/AdvReac Type Severity Reaction Status Date / Time ibandronate sodium AdvReac heartburn Unverified 01/07/24 13:10 [From Tyrel] General Stated Complaint: Dizzy/Sync ISRA: 3 Review of Systems All systems reviewed & are unremarkable except as noted in HPI and below Exam Narrative Exam Narrative: GENERAL APPEARANCE: Well-nourished, non-toxic, awake and alert, atraumatic, no acute distress. SKIN: Warm, pink, dry, intact, without rashes/lesions/ulcerations. HEAD: Normocephalic, atraumatic- no Epstein's sign, no periorbital ecchymosis, normal hair distribution for gender/age. EYES: Pupils PERRLA, EOMs intact without nystagmus, normal conjunctiva, no exudates on lids/lashes. ENT: Nares patent, no circumoral cyanosis, no facial swelling NECK: Supple, trachea midline, painless cervical ROM. LUNGS/CHEST: Lungs CTA bilaterally- no rhonchi/rales/wheezes diffusely, non- labored respirations, normal A/P diameter, symmetrical expansion, no chest wall deformity HEART (CV/PV): Regular rate and rhythm without murmur, no peripheral edema, no JVD. ABDOMEN: Soft, non-distended, no guarding, no tenderness. MSK: Normal ROM, no swelling/deformity to bilateral UEs or LEs, moving all extremities without weakness, no cyanosis, spine midline without tenderness, normal curvature. R LE: Significant bruising diffusely to the right knee with patellar tenderness, no ligamentous laxity with varus valgus forces, medial thigh tenderness, has hemosiderin deposition diffusely to the lower extremity, able to bear weight, able to SLR strength 5/5, NV intact distal R LE NEURO: Mental Status AAOx4 - alert to person, place, time, events No facial droop, no forehead involvement, no dysmetria with FNF, heel/hennessy Motor: No focal weakness - strength 5/5 in bilateral UEs and LEs, proximal and distal, symmetric. Sensory: sensation intact to light touch globally. Gait [ ]. PSYCH: euthymic, cooperative, pleasant, appropriate speech Course Vital Signs Vital signs: Vital Signs Temperature 37.6 C 01/07/24 13:07 Pulse 96 H 01/07/24 13:07 Respiratory Rate 15 01/07/24 13:07 Blood Pressure 151/117 H 01/07/24 13:07 Pulse Oximetry 100 01/07/24 13:07 Temperature 37.6 C 01/07/24 13:07 Temperature Source Tympanic 01/07/24 13:07 Pulse 96 H 01/07/24 13:07 Respiratory Rate 15 01/07/24 13:07 Blood Pressure 151/117 H 01/07/24 13:07 Blood Pressure Position Sitting 01/07/24 13:07 Pulse Oximetry 100 01/07/24 13:07 Oxygen Delivery Method Room Air 01/07/24 13:07 Oxygen Flow Rate 0 01/07/24 13:07 Medical Decision Making This dictation utilizes [id number] dictation software and may contain unedited grammatical errors. 73 y/o F presents to ED today with a chief complaint of intermittent dizzy spells, known atrial fibrillation, denies chest pain, endorses chronic intermittent palpitations. Patient suffered a fall while leaning over to fix a doormat on Saturday, and did not present for evaluation- has R knee pain and bruising, pulsation sensation in R medial thigh, and headstrike without LOC, denies post-event nausea/vomiting. Patient is anticoagulated on Xarelto. Patients' medical history: Atrial fibrillation, osteoporosis, history of UTI, hypertension, peripheral vascular disease. Family and social history: Noncontributory. Pertinent exam findings / vital signs include R LE: Significant bruising diffusely to the right knee with patellar tenderness, no ligamentous laxity with varus valgus forces, medial thigh tenderness, has hemosiderin deposition diffusely to the lower extremity, able to bear weight, able to SLR strength 5/5, NV intact distal R LE, neuro intact, benign abdomen. Differential / pathologies of concern include ICH, Vertebral Dissection, Debility, Fracture, Contusion, Sprain/Strain, ACS, CHF, Near Syncope, Vertigo, DVT, Orthostatic Hypotension. Diagnostic studies of: -EKG, CBC, BMP, troponin, TSH, BNP, magnesium, ultrasound of the right lower extremity, x-ray right knee, CTA head and neck, urinalysis. -CBC shows leukocytosis of 17, prominent neutrophilia -BMP shows no acute findings, no concern for dehydration/PILI -Magnesium mild low 1.7 -Trop negative, BNP elevated to 2055- prior value 1000 (2021) -US R LE DVT Study negative -XR R Knee no acute fracture -CTA Head & Neck negative for dissection, stroke, bleed -EKG shows sinus rhythm with P waves followed by narrow complex QRS, normal axis deviation, good R wave progression, no ST depressions, normal QT QTc Interventions of: -None. ED Course/Assessment/Plan: 73-year-old female presents with intermittent dizzy spells with chronic palpitations and known chronic A-fib, denies any chest pain, had a fall last Saturday and did not seek evaluation despite being on anticoagulation. She has right knee pain and bruising, x-ray and ultrasound are negative for any vascular or bony pathology to this area. The patient has been weightbearing since the injury. She did have head strike on anticoagulation and CTA of the head and neck is negative for any intracranial hemorrhage, CVA, vascular pathology of the vertebral arteries. Patient has no nystagmus on exam and hints exam is negative for central cause, I counseled the patient on the need for possible vestibular rehab and PT OT consults as an outpatient as there is no admittable criteria at today's visit. She has a mildly elevated BNP but no respiratory distress, troponin is negative with reliable onset, mildly low magnesium that would replete with normal p.o. intake. Advised patient of negative studies, and discussed leukocytosis- did say she had some green phlegm come up in a cough this week- will check for PNA. Patient signed out to oncoming provider Navya Rodriguez NP pending UA results, road test & CXR results Findings not consistent with sepsis, ICH, CVA, central vertigo, ACS, CHF exacerbation with hypoxia, current atrial fibrillation, dehydration, hypotension. Disposition of Dizziness of Unknown Cause. Patient verbalized understanding of the plan and return to ED criteria and engaged in shared decision making. Medical Records Medical records reviewed: Yes I reviewed the patient's medical records. Imaging Data Radiologic Study: Attestation: I personally reviewed and interpreted this imaging study as follows: Imaging: X-Ray Radiologist's impression: EXAM: XR KNEE RT 4V AP,LAT,EFRA,PAT CLINICAL HISTORY: fall, knee patellar pain. TECHNIQUE: 2D digital imaging was performed. Three views. COMPARISON: MR MRI R LOWER JOINT WO CONT from 12/08/2015 FINDINGS: BONES: No acute fracture is present. No bony destructive lesion is seen. JOINTS: The knee is normally aligned. No joint effusion is seen. Joint spaces are maintained. SOFT TISSUE: Anterior soft tissue swelling. IMPRESSION: No acute abnormality. Radiologic Study #2: Attestation: I personally reviewed and interpreted this imaging study as follows: Imaging: Ultrasound Radiologist's impression: EXAM: US LOWER EXTREMITY VENOUS RT CLINICAL HISTORY: leg swelling, pain at medial thigh. TECHNIQUE: Lower extremity venous ultrasound performed using grayscale, color-flow, and spectral Doppler analysis. COMPARISON: No exams were available for comparison FINDINGS: The common femoral, femoral and popliteal veins demonstrate normal compressibility, augmentation, and color Doppler. The posterior tibial veins are patent. No saphenous vein thrombosis or other superficial venous thrombosis is seen. No hematoma or Umaña's cyst is seen. IMPRESSION: Negative lower extremity ultrasound. No evidence of DVT. Radiologic Study #3: Attestation: I personally reviewed and interpreted this imaging study as follows: Imaging: CT Scan Radiologist's impression: EXAM: CT BRAIN NECK CTA CLINICAL HISTORY: dizziness; fall on thinners days ago. TECHNIQUE: Imaging Protocol: Axial CT angiography was performed with multi- slice acquisition and multi-planar and MIP reconstructions. CONTRAST MATERIAL: Intravenous: Omnipaque 350 Contrast volume:100 ml COMPARISON: None FINDINGS: CT Head W/O and W contrast: Ventricles and Extra axial spaces: Normal in size and morphology for the patient's age. Hemorrhage: None. Cerebral parenchyma: No evidence of acute infarct or mass. Mild atrophy. Midline shift: None. Brainstem/Cerebellum: No acute findings.. Calvarium: Normal. Visualized Paranasal sinuses/Mastoids: Opacification of the sphenoid sinuses. Soft Tissues: Unremarkable. Enhancement: Normal. CTA Brain W: Internal Carotid Arteries: Petrous: Normal. Cavernous: Normal. Cerebral: Normal. Middle Cerebral Arteries: Right: No aneurysm, occlusion or significant stenosis. Left: No aneurysm, occlusion or significant stenosis. Anterior Cerebral Arteries: Right: No aneurysm, occlusion or significant stenosis. Left: No aneurysm, occlusion or significant stenosis. Posterior cerebral Arteries: Right: No aneurysm, occlusion or significant stenosis. Left: No aneurysm, occlusion or significant stenosis. Vertebral Arteries: Right: No aneurysm, occlusion or significant stenosis. Left: No aneurysm, occlusion or significant stenosis. Basilar Artery: No aneurysm, occlusion or significant stenosis. CTA Neck W: Common Carotid: Right: No dissection, occlusion or significant stenosis. Left: No dissection, occlusion or significant stenosis. External Carotid: Right: No dissection, occlusion or significant stenosis. Left: No dissection, occlusion or significant stenosis. Internal Carotid: Right: Minimal calcific plaque at bulb. No dissection, occlusion or significant stenosis. Left: Minimal calcific plaque at bulb. No dissection, occlusion or significant stenosis. Vertebral Artery: Right: No dissection, occlusion or significant stenosis. Left: No dissection, occlusion or significant stenosis. Lung Apices: Bilateral areas of scarring. Bones: Degenerative changes in the cervical spine, greatest at C1-2 and C5-6. Prominent facet degenerative changes. No acute abnormality. Soft Tissues: Normal. IMPRESSION: 1. CTA brain: Normal CTA examination of the [place]. 2. Head CT: Unremarkable CT Head. 3. CTA neck: Plaque at the common carotid bulbs. No significant stenosis. No evidence of dissection. Degenerative changes in the spine. No acute abnormality. Lab Data Lab results reviewed: Yes I reviewed the patient's lab results. Quality:SDOH Health Related Social Needs: No Data to Display PFSH All Active Problems (System 10/04/23 @ 14:30 by Alice Payne) Dizziness of unknown cause (Acute) Hypertension (Chronic) Dizzy spells (Acute) Peripheral vascular disease (Chronic) Atrial fibrillation (Chronic) Sensorineural hearing loss of both ears (Acute) Uterine prolapse (Acute) Cystocele and rectocele with incomplete uterovaginal prolapse (Acute) Stage IV rectocele. 07/2020 #3 incontinence dish with support . 08/15/2020 76 mm short stem Gellhorn placed. Patient wishes referral to continence center at definitive surgery. Lymphadenopathy, inguinal (Acute) left Dupuytren's contracture of both hands (Acute) Status post bilateral partial palmar fasciectomy with involvement of little finger DOS: 07/26/2021 Medical History (Updated 01/07/24 @ 15:30 by ERIKA Villeda) Melanoma chest Eustachian tube dysfunction UTI (urinary tract infection) Diarrhea Unspecified injury of head, initial encounter Mycobacterium avium complex Thrush, oral B12 deficiency Osteoporosis Urinary incontinence Surgical History (System 10/04/23 @ 14:30 by Alice Payne) Hx of vaginal surgery History of lung biopsy Colonoscopy - MAC (01/28/17) Arthroplasty of knee (12/21/15) RIGHT KNEE W/PARTIAL LATERAL MENISECTOMY AND LIMITED CHONDROPLASTY OF TROCHLEAS AND MESIAL ASCPECT OF MEDIAL FEMORAL CONDYLE/DR. HASKINS Social History (System 10/04/23 @ 14:30 by Alice Payne) Smoking/Tobacco Use Status: Former Tobacco Use Smoking risk assessment performed?: Yes Drug use: Never Substance use type: does not use Current gender identity: female Do you feel safe at home: Yes Do you feel safe in your relationship?: Yes Sign Out Sign Out Data: Sign Out Comment: Patient here for dizziness, had a fall on anticoagulation on Saturday- with headstrike, no severe red flags for concussive/ICH pathology and R knee pain. Known atrial fibrillation, denies chest pain CTA Head & Neck negative for CVA/ICH, XR R knee negative for fracture, US R LE DVT negative - Patient has pending UA, and then toward end of visit with discussion of negative imaging, negative cardiac work-up, only isolated leukocytosis- she endorsed cough with green sputum this week. Neuro exam is intact, HINTS not suspicious for central vertigo- possibly f/u outpatient with trial of vestibular rehab or PCP. Strict return for worsening. Last updated by Jacques Hickman PA at 01/07/24 15:24
--- NOTE | 2024-01-07 13:28 | DI.CT_ITS ---
Exam(s) CT BRAIN NECK CTA EXAM: CT BRAIN NECK CTA CLINICAL HISTORY: dizziness; fall on thinners days ago. TECHNIQUE: Imaging Protocol: Axial CT angiography was performed with multi-slice acquisition and mu lti-planar and MIP reconstructions. CONTRAST MATERIAL: Intravenous: Omnipaque 350 Contrast volume:100 ml COMPARISON: None FINDINGS: CT Head W/O and W contrast: Ventricles and Extra axial spaces: Normal in size and morphology for the patient's age. Hemorrhage: None. Cerebral parenchyma: No evidence of acute infarct or mass. Mild atrophy. Midline shift: None. Brainstem/Cerebellum: No acute findings.. Calvarium: Normal. Visualized Paranasal sinuses/Mastoids: Opacification of the sphenoid sinuses. Soft Tissues: Unremarkable. Enhancement: Normal. CTA Brain W: Internal Carotid Arteries: Petrous: Normal. Cavernous: Normal. Cerebral: Normal. Middle Cerebral Arteries: Right: No aneurysm, occlusion or significant stenosis. Left: No aneurysm, occlusion or significant stenosis. Anterior Cerebral Arteries: Right: No aneurysm, occlusion or significant stenosis. Left: No aneurysm, occlusion or significant stenosis. Posterior cerebral Arteries: Right: No aneurysm, occlusion or significant stenosis. Left: No aneurysm, occlusion or significant stenosis. Vertebral Arteries: Right: No aneurysm, occlusion or significant stenosis. Left: No aneurysm, occlusion or significant stenosis. Basilar Artery: No aneurysm, occlusion or significant stenosis. CTA Neck W: Common Carotid: Right: No dissection, occlusion or significant stenosis. Left: No dissection, occlusion or significant stenosis. External Carotid: Right: No dissection, occlusion or significant stenosis. Left: No dissection, occlusion or significant stenosis. Internal Carotid: Right: Minimal calcific plaque at bulb. No dissection, occlusion or significant stenosis. Left: Minimal calcific plaque at bulb. No dissection, occlusion or significant stenosis. Vertebral Artery: Right: No dissection, occlusion or significant stenosis. Left: No dissection, occlusion or significant stenosis. Lung Apices: Bilateral areas of scarring. Bones: Degenerative changes in the cervical spine, greatest at C1-2 and C5-6. Prominent facet degene rative changes. No acute abnormality. Soft Tissues: Normal. IMPRESSION: 1. CTA brain: Normal CTA examination of the [place]. 2. Head CT: Unremarkable CT Head. 3. CTA neck: Plaque at the common carotid bulbs. No significant stenosis. No evidence of dissection . Degenerative changes in the spine. No acute abnormality. RADIATION DOSE DELIVERED: 1,838.67mGy.cm Total DLP DATA REPOSITORY: All CT scans at this facility are submitted to the National Radiology Data Registry (NRDR) Dose Index Registry (DIR) with the [employer] (A[employer]). RADIATION OPTIMIZATION: All CT scans at this facility use at least one of these dose optimization te chniques: automated exposure control; mA and/or kV adjustment per patient size (includes targeted exa ms where dose is matched to clinical indication); or iterative reconstruction.
[2024-01-07 13:49] LABS: Abs Immature Grans 0.08 10^3/uL (0.0-0.06); Absolute Basophil Count 0.07 10^3/uL (0.0-0.2); Absolute Eosinophil Count 0.04 10^3/uL (0.0-0.7); Absolute Lymphocyte Count 1.21 10^3/uL (1.2-3.4); Basophils % 0.4 %; Eosinophils % 0.2 %; HCT 39.1 % (36.0-46.0); HGB 13.2 g/dL (11.2-15.7); Immature Grans % 0.4 %; Lymphocytes % 6.8 %; MCH 34.6 pg (27.0-33.0); MCHC 33.8 % (32.0-36.0); MCV 102 fL (80-95); MPV 9.7 fL (8.0-11.0); Monocytes % 7.6 %; Neutrophils % 84.6 %; Platelet Count 255 10^3/uL (130-400); RBC 3.82 10^6/uL (3.93-5.22); RDW 13.9 % (11.7-14.6); RDW-SD 52.3 fL; WBC 17.82 10^3/uL (4.4-10.8)
[2024-01-07 13:50] LABS: Absolute Monocyte Count 1.35 10^3/uL (0.1-0.8); Absolute Neutrophil Count 15.08 10^3/uL (1.2-6.7)
[2024-01-07 14:15] LABS: Anion Gap 5.4 mmol/L (3-11); BUN 16 mg/dL (7-18); CO2 29.6 mmol/L (21.0-32.0); CREATININE 0.8 mg/dL (0.55-1.02); Calcium 9.4 mg/dL (8.5-10.1); Chloride 101 mmol/L (98-107); Estimated GFR 77.27 (mL/min/1.73m2); Glucose 97 mg/dL (74-106); Magnesium 1.7 mg/dL (1.8-2.4); NT-proBNP 2056 pg/mL (<300); Potassium 4.3 mmol/L (3.5-5.1); Sodium 136 mmol/L (136-145); Troponin I < 50 ng/L (< or =60)
[2024-01-07] MEDS: Omnipaque 350 MG/ML 100 ML BTL IJ (14:26)
[2024-01-07] MEDS: Normal Saline - Diluent 50 ML VIAL IJ (14:27)
[2024-01-07] MEDS: Normal Saline Flush 10 ML SYR IVP (14:28)
--- NOTE | 2024-01-07 14:34 | DI.RAD_ITS ---
Exam(s) XR KNEE RT 4V AP,LAT,EFRA,PAT EXAM: XR KNEE RT 4V AP,LAT,EFRA,PAT CLINICAL HISTORY: fall, knee patellar pain. TECHNIQUE: 2D digital imaging was performed. Three views. COMPARISON: MR MRI R LOWER JOINT WO CONT from 12/08/2015 FINDINGS: BONES: No acute fracture is present. No bony destructive lesion is seen. JOINTS: The knee is normally aligned. No joint effusion is seen. Joint spaces are maintained. SOFT TISSUE: Anterior soft tissue swelling. IMPRESSION: No acute abnormality. DATA REPOSITORY: RADIATION DOSE DELIVERED:
--- NOTE | 2024-01-07 15:44 | ED.PROG_ITS ---
Date of service: 01/07/24 Time of Service: 15:44 Medical Decision Making Care assumed from provider (ERIKA Whitmore) Please see their initial HPI, PE, and documentation. Discussed patient details and case and pending workup and disposition. Patient is hemodynamically stable, and alert and oriented. At the time of signout awaiting chest x-ray result and urinalysis. In short patient is a 73-year-old female came in with dizziness and a fall she is on anticoagulation. At this point workup is largely unremarkable except some leukocytosis with a white blood cell count of 17.2. Differential diagnosis includes UTI or pneumonia. Patient has had a negative CTA x-ray and Doppler of right lower extremity. X-ray shows some scarring in the right middle lobe no pneumonia or infiltrate. Results noted below. Awaiting urinalysis. Urinalysis shows no leukocytes no nitrates no evidence of UTI. On patient reevaluation patient reports that she feels well enough to go home. She is ambulatory in the department with minimal assistance with a walker. ENT exam shows a possible perforation to the right TM which could explain the Dizziness, no evidence of otitis media, patient does see ENT Dr. Richardson and will follow-up with him. She reports that she recently started using hearing aids and may have perforated her eardrum or done something with that. She does not remember any sort of other trauma. Patient is requesting to be discharged home. Will discharge home with a walker and strict follow-up instructions. This text was generated using [employer] dictation system, please disregard any oddities of phrase or misspellings. Medical Records Medical records reviewed: Yes I reviewed the patient's medical records. Imaging Data Radiologic Study: Imaging: X-Ray Radiologist's impression: XR CHEST 2V PA LATERAL EXAM: XR CHEST 2V PA LATERAL CLINICAL HISTORY: productive cough this week TECHNIQUE: 2D digital imaging was performed. Two views. COMPARISON: CT CT CHEST W from 07/24/2023 FINDINGS: HEART: Normal size. Aorta: Not dilated. PULMONARY VASCULATURE: Normal. LUNGS: Scarring in medial right middle lobe and lingula. No infiltrate or pulmonary edema. Mild underlying fibrotic changes. Mild biapical pleural thickening. PLEURAL SPACE: No pleural effusion or pneumothorax. BONE:Stable severe midthoracic compression fracture. Soft tissues: Unremarkable. IMPRESSION: No acute abnormality. Lab Data Lab results reviewed: Yes I reviewed the patient's lab results. Labs: Laboratory Tests Range/Units 01/07/24 01/07/24 13:40 15:26 WBC (4.4-10.8) 10^3/uL 17.82 H RBC (3.93-5.22) 10^6/uL 3.82 L Hgb (11.2-15.7) g/dL 13.2 Hct (36.0-46.0) % 39.1 MCV (80-95) fL 102 H MCH (27.0-33.0) pg 34.6 H MCHC (32.0-36.0) % 33.8 RDW (11.7-14.6) % 13.9 Plt Count (130-400) 10^3/uL 255 MPV (8.0-11.0) fL 9.7 Immature Gran % % 0.4 Neutrophils % % 84.6 Lymphocytes % % 6.8 Monocytes % % 7.6 Eosinophils % % 0.2 Basophils % % 0.4 Nucleated RBC % (0.0-0.3) % 0.0 Absolute Neutrophils (1.2-6.7) 10^3/uL 15.08 H Absolute Lymphocytes (1.2-3.4) 10^3/uL 1.21 Absolute Monocytes (0.1-0.8) 10^3/uL 1.35 H Absolute Eosinophils (0.0-0.7) 10^3/uL 0.04 Absolute Basophils (0.0-0.2) 10^3/uL 0.07 Sodium (136-145) mmol/L 136 Potassium (3.5-5.1) mmol/L 4.3 Chloride (98-107) mmol/L 101 Carbon Dioxide (21.0-32.0) mmol/L 29.6 Anion Gap (3-11) mmol/L 5.4 BUN (7-18) mg/dL 16 Creatinine (0.55-1.02) mg/dL 0.8 Est GFR (CKD-EPI 2020) (mL/min/1.73m2) 77.27 Glucose (74-106) mg/dL 97 Calcium (8.5-10.1) mg/dL 9.4 Magnesium (1.8-2.4) mg/dL 1.7 L Troponin I (< or =60) ng/L < 50 NT-Pro-B Natriuret Pep (<300) pg/mL 2056 H TSH (0.36-3.74) uIU/mL 0.80 Urine Color (Yellow) Yellow Urine Clarity (Clear) Clear Urine pH (5-8) 5.5 Ur Specific [place] (1.005-1.025) <= 1.005 Urine Protein (Neg-Trace) mg/dL Negative Urine Ketones (Negative) mg/dL Negative Urine Blood (Negative) Negative Urine Nitrite (Negative) Negative Urine Bilirubin (Negative) Negative Urine Urobilinogen (Up to 0.2) mg/dL 0.2 Ur Leukocyte Esterase (Negative) Negative Urine Glucose (Negative) mg/dL Negative Quality:SDOH Health Related Social Needs: No Data to Display Sign Out Sign Out Data: Sign Out Comment: Patient here for dizziness, had a fall on anticoagulation on Saturday- with headstrike, no severe red flags for concussive/ICH pathology and R knee pain. Known atrial fibrillation, denies chest pain CTA Head & Neck negative for CVA/ICH, XR R knee negative for fracture, US R LE DVT negative - Patient has pending UA, and then toward end of visit with discussion of negative imaging, negative cardiac work-up, only isolated leukocytosis- she endorsed cough with green sputum this week. Neuro exam is intact, HINTS not suspicious for central vertigo- possibly f/u outpatient with trial of vestibular rehab or PCP. Strict return for worsening. Last updated by Jacques Hickman PA at 01/07/24 15:24 Discharge Plan Disposition Patient Disposition: Home Condition: Stable Discharge Details Clinical Impression: Dizziness of unknown cause, Perforation of right tympanic membrane Primary Care Provider: Yahaira Araiza ED Provider: Navya Rodriguez Home Meds and New Rx's Prescriptions: Continued sotalol 80 mg tablet 80 mg PO QAM sotalol 120 mg tablet 120 mg PO QPM atorvastatin 40 mg tablet 40 mg PO DAILY PreserVision AREDS 4,296 mcg-226 mg-90 mg capsule 1 cap PO BID diphenoxylate-atropine [Lomotil] 2.5-0.025 mg tablet 1 tab PO DAILY fluticasone propionate [Flovent HFA] 220 mcg/actuation HFA aerosol inhaler 1 puff inhalation BID multivitamin [Multi-Day] 1 EACH tablet 1 ea PO DAILY calcium carbonate-vitamin D3 1 EACH tablet 1 ea PO BID alprazolam 0.5 MG tablet 0.5 mg PO PRN PRN zolpidem 10 MG tablet 5 mg PO HS PRN PRN Prolia 60 mg/mL syringe SUBCUT Xarelto 20 mg tablet 20 mg PO DAILY acetaminophen 500 mg tablet 500 mg PO Q6H PRN PRN (Reason: pain) Qty: 40 3RF ibuprofen 600 mg tablet 600 mg PO TID PRN (Reason: pain) Qty: 30 3RF Discharge Instructions Instructions: Dizziness (ED) Additional Instructions: Please follow-up with ear nose and throat as discussed. Follow up with primary care provider in 3-5 days. Return to ED sooner if any worsening or concerns. No evidence of pneumonia today, no urinary tract infection. He did have his slightly elevated white blood cell count and slightly elevated proBNP. Please follow-up with PCP to discuss these results. Referrals: Yahaira Araiza [Primary Care Provider] - Marvin Richardson MD [ [facility] STAFF PHYSICIAN] - 5 days Discharge Data Discharge Date/Time-TO BE ENTERED AT DEPARTURE: 01/07/24 16:52
[2024-01-07 16:13] LABS: Bilirubin Negative (Negative); Blood Negative (Negative); Clarity Clear (Clear); Glucose Negative (Negative); Ketones Negative (Negative); Leukocyte Esterase Negative (Negative); Nitrite Negative (Negative); Specific Gravity <= 1.005 (1.005-1.025); Urobilinogen 0.2 mg/dL (Up to 0.2); pH 5.5 (5-8)
[2024-01-07 16:52] VITALS: BP 143/86; PULSE 92; RESP 15; TEMP 37.6; O2SAT 100
== END 2024-01-07 16:52 | disposition home or self-care (01) ==
PROVIDERS: Physician Assistant; Emergency Provider Registered Nurse Emergency; PCP Family Medicine
DX: M25.561 Pain in right knee (principal); R42 Dizziness and giddiness; I10 Essential (primary) hypertension; Z79.01 Long term (current) use of anticoagulants; W19.XXXA Unspecified fall, initial encounter; I73.9 Peripheral vascular disease, unspecified; R26.89 Other abnormalities of gait and mobility
CPT/HCPCS: 00123; 36415; 70496; 70498; 80048; 93005; 99285; 71046; 73564; 81003; 83735; 83880; 84443; 84484; 85025; 93010; 93971; 99283; J3490

== ENCOUNTER 2024-01-09 12:47 | Outpatient (REF) | payer MEDICARE, SELFPAY ==
[2024-01-09 17:21] LABS: Abs Immature Grans 0.06 10^3/uL (0.0-0.06); HCT 36.5 % (36.0-46.0); HGB 12.3 g/dL (11.2-15.7); MCH 35.2 pg (27.0-33.0); MCHC 33.7 % (32.0-36.0); MCV 105 fL (80-95); MPV 10.8 fL (8.0-11.0); Platelet Count 244 10^3/uL (130-400); RBC 3.49 10^6/uL (3.93-5.22); RDW 13.6 % (11.7-14.6); RDW-SD 52.7 fL; WBC 14.67 10^3/uL (4.4-10.8)
[2024-01-09 17:46] LABS: Absolute Lymphocyte Count 1.61 10^3/uL (1.2-3.4); Absolute Monocyte Count 1.47 10^3/uL (0.1-0.8); Absolute Neutrophil Count 11.59 10^3/uL (1.2-6.7)
[2024-01-09 17:47] LABS: Diff Comment Diff Reviewed; RBC Morphology Normal
== END 2024-01-09 12:48 | disposition home or self-care (01) ==
LOC: NCHCN 12:47
PROVIDERS: PCP Family Medicine; Visit Provider Family Medicine
DX: Z00.00 Encounter for general adult medical examination without abnormal findings (principal)
CPT/HCPCS: 85025

== ENCOUNTER 2024-01-15 10:59 | Outpatient (REF) | payer MEDICARE, SELFPAY ==
[2024-01-15 15:05] LABS: Abs Immature Grans 0.14 10^3/uL (0.0-0.06); Absolute Basophil Count 0.07 10^3/uL (0.0-0.2); Absolute Eosinophil Count 0.13 10^3/uL (0.0-0.7); Absolute Lymphocyte Count 2.45 10^3/uL (1.2-3.4); Basophils % 0.6 %; Eosinophils % 1.1 %; HCT 38.2 % (36.0-46.0); HGB 12.5 g/dL (11.2-15.7); Immature Grans % 1.2 %; Lymphocytes % 20.3 %; MCH 33.8 pg (27.0-33.0); MCHC 32.7 % (32.0-36.0); MCV 103 fL (80-95); MPV 9.9 fL (8.0-11.0); Monocytes % 11.4 %; Neutrophils % 65.4 %; Platelet Count 398 10^3/uL (130-400); RDW 12.7 % (11.7-14.6); RDW-SD 48.1 fL; WBC 12.07 10^3/uL (4.4-10.8)
[2024-01-15 15:16] LABS: Absolute Monocyte Count 1.38 10^3/uL (0.1-0.8); Absolute Neutrophil Count 7.89 10^3/uL (1.2-6.7)
== END 2024-01-15 11:00 | disposition home or self-care (01) ==
LOC: NCHCN 10:59
PROVIDERS: PCP Family Medicine; Visit Provider Family Medicine
DX: J06.9 Acute upper respiratory infection, unspecified (principal)
CPT/HCPCS: 85025

== ENCOUNTER → 2024-01-16 12:45 | Outpatient (CLI) | payer MEDICARE, SELFPAY ==
--- NOTE | 2024-01-16 | DI.RAD_ITS ---
Exam(s) XR CHEST 2V PA LATERAL EXAM: XR CHEST 2V PA LATERAL CLINICAL HISTORY: ACUTE UPPER RESPIRATORY INFECTION, J06.9 TECHNIQUE: 2D digital imaging was performed of the chest. Two images were obtained. PA and lateral views were obtained. COMPARISON: CR XR CHEST 2V PA LATERAL from 01/07/2024 FINDINGS: MEDIASTINUM: Normal. HEART: Normal. PULMONARY VASCULATURE: Normal. LUNGS: There is a new infiltrate seen in the region of the superior segment of the left lower lobe. There is scarring again seen in the left lung base. The right lung appears clear. There is biapical scarring. PLEURAL SPACE: No pleural effusion or pneumothorax. BONE:Within normal limits for the patient's age. Old mid thoracic vertebral compression fracture. OTHER FINDINGS:Normal. IMPRESSION: Interval development of an infiltrate on the left which appears to lie in the superior segment of the left lower lobe. Findings are suspicious for pneumonia. DATA REPOSITORY: RADIATION DOSE DELIVERED:
== END ==
PROVIDERS: PCP Family Medicine; Visit Provider Family Medicine
DX: J06.9 Acute upper respiratory infection, unspecified (principal)
CPT/HCPCS: 71046

== ENCOUNTER 2024-01-22 12:45 | Inpatient (IN) | payer MEDICARE, SELFPAY ==
[2024-01-22] VITALS (14 sets, daily range): BP systolic 100–160; BP diastolic 61–110; PULSE 72–130; RESP 15–30; TEMP 36.4–37.4; O2SAT 94–98
--- NOTE | 2024-01-22 13:15 | RT.EKG_ITS ---
APPROVED REPORT Exam: Resting ECG Reason for Exam: dyspnea Patient Location: E HR:106 bpm ECG Measurements Heart Rate 106 AXIS FL [id number] P [id number] QRSd 93 QRS -24 QT 368 T 8 QTc 490 Conclusion Atrial fibrillation...? atrial activity
--- NOTE | 2024-01-22 13:30 | DI.CT_ITS ---
Exam(s) CT CHEST PE CTA EXAM: CT CHEST PE CTA CLINICAL HISTORY: dyspnea, ?PE vs infiltrate. TECHNIQUE: Imaging Protocol: Axial CT angiography was performed with multi-slice acquisition and mu lti-planar and/or 3D reconstructions. CONTRAST MATERIAL: Intravenous: Omnipaque 350 contrast volume:90 mL COMPARISON: CT CT CHEST PE CTA from 06/26/[address] CHEST WO from 09/29/[address] CHEST W from 07/24/[address] BRAIN NECK CTA from 01/07/2024 FINDINGS: Tracheobronchial tree: Patent where visualized. Pulmonary parenchyma: There is a multifocal predominantly ground-glass infiltrate present. The findi ngs are most marked in the right upper lobe and the left lower lobe. No architectural distortion. Pulmonary Arteries: No evidence of filling defect to suggest pulmonary emboli. Mediastinum and Chhaya: No dominant adenopathy or fluid collection. The esophagus is unremarkable. Th ere is a small hiatal hernia. Visualized thyroid gland: Unremarkable. Pleura: No effusion or pneumothorax. Heart: Cardiomegaly. No coronary artery calcifications are seen. No pericardial effusion. Aorta: Thoracic aorta non-dilated. No evidence of dissection. Atherosclerotic calcification is presen t. Upper abdomen: Unremarkable. Soft tissues: Unremarkable. Bones: There is an old thoracic compression fracture deformity. Age-appropriate degenerative changes are seen in the spine. IMPRESSION: 1. No evidence of pulmonary embolism, thoracic aortic dissection or aneurysm. 2. Multifocal ground-glass infiltrate. Findings are suspicious for pneumonia. Atypical pneumonia sh ould be considered including COVID-19. RADIATION DOSE DELIVERED: 260.08mGy.cm Total DLP DATA REPOSITORY: All CT scans at this facility are submitted to the National Radiology Data Registry (NRDR) Dose Index Registry (DIR) with the [employer] (ACR). RADIATION OPTIMIZATION: All CT scans at this facility use at least one of these dose optimization te chniques: automated exposure control; mA and/or kV adjustment per patient size (includes targeted exa ms where dose is matched to clinical indication); or iterative reconstruction.
--- NOTE | 2024-01-22 13:33 | ED.GENADUL_ITS ---
Discharge Plan Disposition Patient Disposition: Admit to [facility] Condition: Stable Discharge Details Chief Complaint: RespSymp Clinical Impression: Dyspnea, Pneumonia Primary Care Provider: Yahaira Araiza ED Provider: Sean Ramirez Home Meds and New Rx's Prescriptions: No Action sotalol 120 mg tablet 120 mg PO BID Spiriva Respimat 1.25 mcg/actuation mist 2 puff inhalation DAILY Arnuity Ellipta 200 mcg/actuation blister with device 1 inh inhalation DAILY atorvastatin 40 mg tablet 40 mg PO DAILY PreserVision AREDS 4,296 mcg-226 mg-90 mg capsule 1 cap PO BID multivitamin [Multi-Day] 1 EACH tablet 1 ea PO DAILY calcium carbonate-vitamin D3 1 EACH tablet 1 ea PO BID alprazolam 0.5 MG tablet 0.5 mg PO PRN PRN zolpidem 10 MG tablet 5 mg PO HS PRN PRN Prolia 60 mg/mL syringe 60 mg SUBCUT .weekly Patient Comments: pt requests to be removed Xarelto 20 mg tablet 20 mg PO DAILY diltiazem HCl 120 mg capsule,extended release 24hr 120 mg PO DAILY Patient Comments: TAKE ONE CAPSULE BY MOUTH EVERY DAY acetaminophen 500 mg tablet 500 mg PO Q6H PRN PRN (Reason: pain) Qty: 40 3RF HPI General Mode of arrival: ambulatory . Date/Time Provider Initiated Documentation: 01/22/24 12:47 . Limitations to Documentation: no limitations . Information obtained by: patient . History of Present Illness 73 year old F presents to the emergency department with the chief complaint of difficulty breathing, described as moderate, Patient started experiencing this week(s) (2) and it has been constant. No relieving factors improve symptom(s), No exacerbating factors reported . Patient notes cough. Patient did receive the following treatments prior to arrival, none Related Data Home Medications Medication Instructions Recorded Confirmed alprazolam 0.5 mg tablet 0.5 mg PO PRN PRN 12/13/15 01/22/24 calcium carbonate 600 mg-vitamin 1 ea PO BID 12/13/15 01/22/24 D3 5 mcg (200 unit) tablet multivitamin (Multi-Day tablet) 1 ea PO DAILY 12/13/15 01/22/24 zolpidem 10 mg tablet 5 mg PO HS PRN PRN 12/13/15 01/22/24 denosumab 60 mg/mL subcutaneous 60 mg subcut .weekly 06/26/20 01/22/24 syringe (Prolia) rivaroxaban 20 mg tablet (Xarelto) 20 mg PO DAILY 06/26/20 01/22/24 acetaminophen 500 mg tablet 500 mg PO Q6H PRN PRN pain #40 tabs 07/26/21 01/22/24 atorvastatin 40 mg tablet 40 mg PO DAILY 08/06/23 01/22/24 vitamins A,C,T-iwqz-iyqxtm 4,296 1 cap PO BID 08/06/23 01/22/24 mcg-226 mg-90 mg capsule (PreserVision AREDS) fluticasone furoate 200 1 inh inhalation DAILY 01/09/24 01/22/24 mcg/actuation blister powder for inhalation (Arnuity Ellipta) sotalol 120 mg tablet 120 mg PO BID 01/09/24 01/22/24 tiotropium bromide 1.25 2 puff inhalation DAILY 01/09/24 01/22/24 mcg/actuation mist for inhalation (Spiriva Respimat) diltiazem HCl 120 mg 120 mg PO DAILY 01/22/24 01/22/24 capsule,extended release 24 hr Previous Rx's Medication Instructions Recorded acetaminophen 500 mg tablet 500 mg PO Q6H PRN PRN pain #40 tabs 07/26/21 Allergies Allergy/AdvReac Type Severity Reaction Status Date / Time ibandronate sodium AdvReac heartburn Unverified 01/09/24 13:00 [From [facility]] General Stated Complaint: RespSymp ISRA: 3 Review of Systems All systems reviewed & are unremarkable except as noted in HPI and below Constitutional Constitutional: Denies weakness Eyes Eyes: Denies loss of vision ENT Ears, Nose, Mouth, and Throat: Denies change in voice Cardiovascular Cardiovascular: Denies chest pain and Reports dyspnea Respiratory Respiratory: Reports cough and Reports dyspnea Gastrointestinal Gastrointestinal: Denies abdominal pain, Denies nausea and Denies vomiting Musculoskeletal Musculoskeletal: Denies joint swelling Neurologic Neurologic: Denies loss of vision and Denies weakness Exam Const General: no acute distress Orientation: alert [facility] Head: normal to inspection Ears: external ears normal General nose exam: external nose normal Mouth: moist mucous membranes Eyes General: appearance normal, both eyes and all related structures Neck Neck: normal visual inspection Resp Effort & Inspection: normal respiratory effort and able to speak in complete sentences Auscultation: crackles on the right in the lower lung cee Cardio Rate: regular rate Skin General skin exam: no rashes or lesions noted Neuro General: patient alert and patient oriented x3 Extrem General: normal to inspection Psych Mental Status: mental status grossly normal Course Vital Signs Vital signs: Vital Signs Temperature 37.0 C 01/22/24 12:50 Pulse 111 H 01/22/24 12:50 Respiratory Rate 17 01/22/24 12:50 Blood Pressure 160/110 H 01/22/24 12:50 Pulse Oximetry 98 01/22/24 12:50 Temperature 37.0 C 01/22/24 12:50 Temperature Source Oral 01/22/24 12:50 Pulse 111 H 01/22/24 12:50 Respiratory Rate 17 01/22/24 12:50 Blood Pressure 160/110 H 01/22/24 12:50 Blood Pressure Position Sitting 01/22/24 12:50 Pulse Oximetry 98 01/22/24 12:50 Oxygen Delivery Method Room Air 01/22/24 12:50 Oxygen Flow Rate 0 01/22/24 12:50 Lab/Test Results Lab/Test Results: 01/22/24 13:17 Blood Blood Culture - Pending 01/22/24 13:17 Blood Blood Culture - Pending Medical Decision Making 23-year-old female with a history of A-fib on Xarelto who was seen in the ER a few weeks ago and had a negative x-ray, had a follow-up x-ray which showed possible left-sided infiltrate so she says she completed a 5-day course of azithromycin this past Saturday and had minimal improvement in her symptoms. Woke up today with chills and still feels short of breath and intermittent dry cough so came here for evaluation. She says she feels in the right lower lobe in her lungs. She is alert and speaking clearly, does appear mildly fatigued. She has mild crackles at the right lung base otherwise clear lungs, soft nontender abdomen. Suspect pneumonia but given continued symptoms with recent x-rays without clear diagnosis will proceed with CBC, CMP, procalcitonin, EKG and troponin, and also obtain CT of the chest to exclude PE and also evaluate for underlying infiltrate. labs show count of 21 and CTA shows no PE but does have an infiltrate. Will discuss with hospitalist about admission Differential Diagnosis Differential Diagnosis: Pneumonia, PE Medical Records Medical records reviewed: Yes I reviewed the patient's medical records. Imaging Data Radiologic Study: Attestation: I personally reviewed and interpreted this imaging study as follows: Imaging: X-Ray Radiologist's impression: IMPRESSION: 1. No evidence of pulmonary embolism, thoracic aortic dissection or aneurysm. 2. Multifocal ground-glass infiltrate. Findings are suspicious for pneumonia. Atypical pneumonia should be considered including COVID-19. Lab Data Lab results reviewed: Yes I reviewed the patient's lab results. ECG Data Attestation: I personally reviewed and interpreted this ECG (s) as follows: Prior ECG tracings: available for review Interpretation: A-fib, rate of 106, QTc 490, no STEMI Quality:SDOH Health Related Social Needs: No Data to Display PENDING SALE TO [facility] All Active Problems (System 10/04/23 @ 14:30 by Alice Payne) Pneumonia (Acute) Dyspnea (Acute) Dizziness of unknown cause (Acute) Hypertension (Chronic) Dizzy spells (Acute) Peripheral vascular disease (Chronic) Atrial fibrillation (Chronic) Sensorineural hearing loss of both ears (Acute) Uterine prolapse (Acute) Cystocele and rectocele with incomplete uterovaginal prolapse (Acute) Stage IV rectocele. 07/2020 #3 incontinence dish with support . 08/15/2020 7 6 mm short stem Gellhorn placed. Patient wishes referral to continence center at definitive surgery. Lymphadenopathy, inguinal (Acute) left Dupuytren's contracture of both hands (Acute) Status post bilateral partial palmar fasciectomy with involvement of little finger DOS: 07/26/2021 Medical History (Updated 01/22/24 @ 14:50 by Sean Ramirez MD) Melanoma chest Eustachian tube dysfunction UTI (urinary tract infection) Diarrhea Unspecified injury of head, initial encounter Mycobacterium avium complex Thrush, oral B12 deficiency Osteoporosis Urinary incontinence Surgical History (System 10/04/23 @ 14:30 by Alice Payne) Hx of vaginal surgery History of lung biopsy Colonoscopy - MAC (01/28/17) Arthroplasty of knee (12/21/15) RIGHT KNEE W/PARTIAL LATERAL MENISECTOMY AND LIMITED CHONDROPLASTY OF TROCHLEAS AND MESIAL ASCPECT OF MEDIAL FEMORAL CONDYLE/DR. HASKINS Social History (System 10/04/23 @ 14:30 by Alice Payne) Smoking/Tobacco Use Status: Former Tobacco Use Smoking risk assessment performed?: Yes Drug use: Never Substance use type: does not use Housing: house Current gender identity: female Do you feel safe at home: Yes Do you feel safe in your relationship?: Yes
[2024-01-22 13:56] LABS: Abs Immature Grans 0.12 10^3/uL (0.0-0.06); Absolute Basophil Count 0.07 10^3/uL (0.0-0.2); Absolute Eosinophil Count 0.13 10^3/uL (0.0-0.7); Absolute Monocyte Count 1.53 10^3/uL (0.1-0.8); BE (Venous) 5 mmol/L (-2-3); Basophils % 0.3 %; Eosinophils % 0.6 %; HCO3 (Venous) 29 mmol/L (23-28); HCT 39.1 % (36.0-46.0); HGB 12.9 g/dL (11.2-15.7); Immature Grans % 0.6 %; MCH 33.8 pg (27.0-33.0); MCV 102 fL (80-95); MPV 8.6 fL (8.0-11.0); Neutrophils % 83.5 %; O2 Sat (Venous) 36 %; Platelet Count 492 10^3/uL (130-400); RBC 3.82 10^6/uL (3.93-5.22); RDW 12.8 % (11.7-14.6); RDW-SD 48.2 fL; TCO2 (Venous) 26 mmol/L (24-29); pCO2 (Venous) 42 mmHg (41-51); pH (Venous) 7.44 (7.31-7.41); pO2 (Venous) 21 mmHg
[2024-01-22] MEDS: Omnipaque 350 MG/ML 100 ML BTL IJ (13:57)
[2024-01-22] MEDS: Normal Saline - Diluent 50 ML VIAL IJ (13:58)
[2024-01-22 14:01] LABS: Absolute Lymphocyte Count 1.74 10^3/uL (1.2-3.4)
[2024-01-22] MEDS: Normal Saline 1,000 ML 1000 ML IV (14:06)
[2024-01-22 14:09] LABS: Diff Comment Diff Reviewed; RBC Morphology Normal
[2024-01-22 14:28] LABS: ALT 25 U/L (14-59); AST 18 U/L (15-37); Albumin 3.4 g/dL (3.4-5.0); Alkaline Phosphatase 53 U/L (46-116); Anion Gap 9.3 mmol/L (3-11); BUN 11 mg/dL (7-18); Bilirubin, Total 0.6 mg/dL (0.2-1.0); CO2 27.7 mmol/L (21.0-32.0); CREATININE 0.8 mg/dL (0.55-1.02); Calcium 9.5 mg/dL (8.5-10.1); Chloride 99 mmol/L (98-107); Estimated GFR 77.27 (mL/min/1.73m2); Glucose 95 mg/dL (74-106); Magnesium 1.7 mg/dL (1.8-2.4); NT-proBNP 2393 pg/mL (<300); Potassium 4.1 mmol/L (3.5-5.1); Sodium 136 mmol/L (136-145); Total Protein 7.9 g/dL (6.4-8.2)
[2024-01-22 14:31] LABS: Procalcitonin < 0.1 ng/mL; Troponin I < 50 ng/L (< or =60)
[2024-01-22 14:36] LABS: COVID-19 PCR Negative (Negative); Influenza A PCR Negative (Negative); Influenza B PCR Negative (Negative); RSV PCR Negative (Negative)
[2024-01-22 14:42] LABS: Source Nasopharynx
[2024-01-22] MEDS: MAGNESIUM SULFATE 1 GM/100 ML BAG IVINF (14:55)
[2024-01-22] MEDS: ACETAMINOPHEN 1,000 MG/100 ML BTL 400 MG IVPB (14:55)
[2024-01-22] MEDS: DOXYCYCLINE 100 MG in Normal Saline 100 ML IVPB (14:57)
[2024-01-22] MEDS: cefTRIAXone 2 GM/50 ML BAG IVPB (14:58)
--- NOTE | 2024-01-22 15:10 | HPE_ITS ---
Date of service: 01/22/24 Time of Service: 15:10 Assessment and Plan Assessment and plan (1) Pneumonia: Status: Acute Assessment and plan: As per CTA:multi-focal ground glass infiltrates Ceftriaxone Doxycycline IS Acapella Mucinex Blood cultures pending (2) Sepsis: Status: Acute Assessment and plan: SIRS: -WBC > 12, RR>20 and HR > 90 Source of infection : -Pneumonia As above (3) Dyspnea: Status: Acute Assessment and plan: O2 supplementation for sat <92% As above PT consult (4) Hypertension: Status: Chronic Assessment and plan: Continue home dose Satolol (5) Atrial fibrillation: Status: Chronic Assessment and plan: On home dose diltiazem CD Telemetry (6) Hypomagnesemia: Status: Acute Assessment and plan: Mg 1.7 supplementation in the ED Mg level in AM (7) Contraindication to deep vein thrombosis (DVT) prophylaxis: Status: Acute Assessment and plan: On Rivaroxaban for A-Fib and embolic risks (8) Discharge planning issues: Status: Acute Assessment and plan: CM to f/u Discussed with Dr. Menezes History of Present Illness History of Present Illness Chief Complaint: difficulty breathing Narrative: This 73 years old female patient with past medical history of mycobacterium avium complex infection, atrial fibrillation on rivaroxaban, hypertension, failed outpatient pneumonia treatment with azithromycin presented today in the ED at [facility] for evaluation of worsening difficulty breathing. The patient reported chills, shortness of breath, and dry cough prompting her to seek evaluation in the ED. The patient was normotensive and afebrile on arrival with saturation in oxygen of 98% on room air. The patient was tachycardic with a heart rate in the 120; respiratory rate was at 24. The workup in the ED showed leukocytosis, and hypomagnesemia. Chest CT showed multifocal groundglass infiltrates mostly marked to the right upper lobe and the left lower lobe and no evidence of pulmonary emboli, thoracic aortic dissection or aneurysm. The hospitalist was contacted and the patient was admitted to the medical surgical floor for evaluation and management of sepsis due to pneumonia. The patient denied dizziness,night sweats, chest pain, palpitations, gastrointestinal symptoms or dysuria. The patient reported that she had no solid oral intake since yesterday but drinking well.The patient reports keeping track of her heart rate and her phone with rate displayed mostly controlled during the day.The patient confirmed that she wants CPR and intubation; the patient is a full code. Review of Systems All systems reviewed & are unremarkable except as noted in HPI and below PFSH All Active Problems (System 10/04/23 @ 14:30 by Alice Payne) Sepsis (Acute) Discharge planning issues (Acute) Contraindication to deep vein thrombosis (DVT) prophylaxis (Acute) Hypomagnesemia (Acute) Pneumonia (Acute) Dyspnea (Acute) Dizziness of unknown cause (Acute) Hypertension (Chronic) Dizzy spells (Acute) Peripheral vascular disease (Chronic) Atrial fibrillation (Chronic) Sensorineural hearing loss of both ears (Acute) Uterine prolapse (Acute) Cystocele and rectocele with incomplete uterovaginal prolapse (Acute) Stage IV rectocele. 07/2020 #3 incontinence dish with support . 08/15/2020 76 mm short stem Gellhorn placed. Patient wishes referral to continence center at definitive surgery. Lymphadenopathy, inguinal (Acute) left Dupuytren's contracture of both hands (Acute) Status post bilateral partial palmar fasciectomy with involvement of little finger DOS: 07/26/2021 Medical History (Updated 01/22/24 @ 15:55 by MAXINE JJ) Melanoma chest Eustachian tube dysfunction UTI (urinary tract infection) Diarrhea Unspecified injury of head, initial encounter Mycobacterium avium complex Thrush, oral B12 deficiency Osteoporosis Urinary incontinence Surgical History (System 10/04/23 @ 14:30 by Alice Payne) Hx of vaginal surgery History of lung biopsy Colonoscopy - MAC (01/28/17) Arthroplasty of knee (12/21/15) RIGHT KNEE W/PARTIAL LATERAL MENISECTOMY AND LIMITED CHONDROPLASTY OF TROCHLEAS AND MESIAL ASCPECT OF MEDIAL FEMORAL CONDYLE/DR. HASKINS Social History (System 10/04/23 @ 14:30 by Alice Payne) Smoking/Tobacco Use Status: Former Tobacco Use Smoking risk assessment performed?: Yes Drug use: Never Substance use type: does not use Housing: house Current gender identity: female Do you feel safe at home: Yes Do you feel safe in your relationship?: Yes Meds Allergies and Home Medications Allergies Allergy/AdvReac Type Severity Reaction Status Date / Time ibandronate sodium AdvReac heartburn Unverified 01/22/24 15:38 [From Tyrel] Home Medications Medication Instructions Recorded Confirmed Type alprazolam 0.5 mg tablet 0.5 mg PO PRN PRN 12/13/15 01/22/24 History calcium carbonate 600 mg-vitamin 1 ea PO BID 12/13/15 01/22/24 History D3 5 mcg (200 unit) tablet multivitamin (Multi-Day tablet) 1 ea PO DAILY 12/13/15 01/22/24 History zolpidem 10 mg tablet 5 mg PO HS PRN PRN 12/13/15 01/22/24 History denosumab 60 mg/mL subcutaneous 60 mg subcut .weekly 06/26/20 01/22/24 History syringe (Prolia) rivaroxaban 20 mg tablet (Xarelto) 20 mg PO DAILY 06/26/20 01/22/24 History acetaminophen 500 mg tablet 500 mg PO Q6H PRN PRN pain #40 tabs 07/26/21 01/22/24 Rx atorvastatin 40 mg tablet 40 mg PO DAILY 08/06/23 01/22/24 History vitamins A,C,J-dzmf-utoymg 4,296 1 cap PO BID 08/06/23 01/22/24 History mcg-226 mg-90 mg capsule (PreserVision AREDS) fluticasone furoate 200 1 inh inhalation DAILY 01/09/24 01/22/24 History mcg/actuation blister powder for inhalation (Arnuity Ellipta) sotalol 120 mg tablet 120 mg PO BID 01/09/24 01/22/24 History tiotropium bromide 1.25 2 puff inhalation DAILY 01/09/24 01/22/24 History mcg/actuation mist for inhalation (Spiriva Respimat) diltiazem HCl 120 mg 120 mg PO DAILY 01/22/24 01/22/24 History capsule,extended release 24 hr valacyclovir 1 gram tablet 1,000 mg PO BID 01/22/24 01/22/24 History Exam Narrative Exam Narrative: Constitutional The patient is sitting in bed comfortable, without acute distress HENMT: Head is atraumatic, normocephalic, no lymphadenopathy. Facial structures with normal appearance Neck: Normal ROM, no meningeal signs Neuro:alert and oriented to self, person, place, time and situation. No focal deficit Chest:Chest is symmetrical and normal appearance Resp: Normal respiratory pattern, speaks in full sentences, unlabored breathing,diminished right lower and left upper lung cee, clear otherwise Cardio: Irregular, HR > 120 telemetry, no murmur, positive pedal and radial pulses GI: Abdomen is not distended, soft and non tender, bowel sounds are present Integumentary: red-purple discolorationto both feet, cap refill< 3 sec Extremities: strength 5/5 to bilateral lower and upper extremities Psych: RASS 0, congruent mood and normal affect. Results Labs 01/22/24 13:45 01/22/24 13:45 Labs: Laboratory Results - last 24 hr 01/22/24 01/22/24 13:33 13:45 WBC 21.80 H RBC 3.82 L Hgb 12.9 Hct 39.1 MCV 102 H MCH 33.8 H MCHC 33.0 RDW 12.8 Plt Count 492 H MPV 8.6 Immature Gran % 0.6 Neutrophils % 83.5 Lymphocytes % 8.0 Monocytes % 7.0 Eosinophils % 0.6 Basophils % 0.3 Nucleated RBC % 0.0 Absolute Neutrophils 18.20 H Absolute Lymphocytes 1.74 Absolute Monocytes 1.53 H Absolute Eosinophils 0.13 Absolute Basophils 0.07 RBC Morphology Normal VBG pH 7.44 H VBG pCO2 42 VBG pO2 21 VBG HCO3 29 H VBG Total CO2 26 VBG O2 Saturation 36 VBG Base Excess 5 H Sodium 136 Potassium 4.1 Chloride 99 Carbon Dioxide 27.7 Anion Gap 9.3 BUN 11 Creatinine 0.8 Est GFR (CKD-EPI 2020) 77.27 Glucose 95 Calcium 9.5 Magnesium 1.7 L Total Bilirubin 0.6 AST 18 ALT 25 Alkaline Phosphatase 53 Troponin I < 50 NT-Pro-B Natriuret Pep 2393 H Total Protein 7.9 Albumin 3.4 Procalcitonin < 0.1 COVID-19 Source Nasopharynx SARS-CoV-2 (PCR) Negative Influenza Type A (PCR) Negative Influenza Type B (PCR) Negative RSV (PCR) Negative Last Vital Signs Temp 37.0 C 01/22/24 12:50 Pulse 111 H 01/22/24 12:50 Resp 15 01/22/24 15:00 BP 160/110 H 01/22/24 12:50 Pulse Ox 98 01/22/24 12:50 Time Spent Time spent with Patient: >75 minutes Time was spent: preparing to see the patient(eg.review tests), obtaining and/or reviewing separately otained hiistory, ordering medications,tests, procedures, referring, communicating with other health home care liaison, indepentently interpreting results, counseling the patient and care coordination
[2024-01-22 17:00] LABS: Troponin I < 50 ng/L (< or =60)
[2024-01-22] MEDS: guaiFENesin 600 MG TABCR PO (20:39)
[2024-01-22] MEDS: ALPRAZolam 0.5 MG TAB PO (20:49)
[2024-01-22] MEDS: Zolpidem 10 MG TAB 5 MG PO (20:49)
[2024-01-22] MEDS: Acetaminophen 500 MG TAB PO (20:50)
[2024-01-22] MEDS: Normal Saline Flush 10 ML SYR IVP (21:38)
[2024-01-23] MEDS: DOXYCYCLINE 100 MG in Normal Saline 100 ML IVPB (04:12)
[2024-01-23 06:44] LABS: Abs Immature Grans 0.08 10^3/uL (0.0-0.06); Absolute Monocyte Count 1.41 10^3/uL (0.1-0.8); Basophils % 0.5 %; Eosinophils % 1.2 %; HCT 34.3 % (36.0-46.0); HGB 11.4 g/dL (11.2-15.7); Immature Grans % 0.5 %; Lymphocytes % 10.6 %; MCH 33.8 pg (27.0-33.0); MCHC 33.2 % (32.0-36.0); MCV 102 fL (80-95); MPV 8.9 fL (8.0-11.0); Monocytes % 8.3 %; Neutrophils % 78.9 %; Platelet Count 407 10^3/uL (130-400); RBC 3.37 10^6/uL (3.93-5.22); RDW 13.1 % (11.7-14.6); RDW-SD 48.9 fL; WBC 16.93 10^3/uL (4.4-10.8)
[2024-01-23 06:46] LABS: Absolute Basophil Count 0.08 10^3/uL (0.0-0.2); Absolute Lymphocyte Count 1.79 10^3/uL (1.2-3.4); Absolute Neutrophil Count 13.36 10^3/uL (1.2-6.7)
[2024-01-23 07:13] LABS: Anion Gap 8.8 mmol/L (3-11); BUN 8 mg/dL (7-18); CO2 26.2 mmol/L (21.0-32.0); CREATININE 0.8 mg/dL (0.55-1.02); Calcium 8.5 mg/dL (8.5-10.1); Chloride 104 mmol/L (98-107); Estimated GFR 77.27 (mL/min/1.73m2); Glucose 94 mg/dL (74-106); Magnesium 1.9 mg/dL (1.8-2.4); Potassium 4.2 mmol/L (3.5-5.1); Sodium 139 mmol/L (136-145)
[2024-01-23 07:14] VITALS: BP 101/66; PULSE 77; RESP 18; TEMP 36.8; O2SAT 96
[2024-01-23] MEDS: Tiotropium Bromide-Respimat 10 PUFF INH IH ×2 (07:42→09:00)
[2024-01-23] MEDS: Atorvastatin 40 MG TAB PO (07:58)
[2024-01-23] MEDS: Docusate Sodium 100 MG CAP PO (07:58)
[2024-01-23] MEDS: guaiFENesin 600 MG TABCR PO (08:00)
[2024-01-23] MEDS: Multivitamin TAB 1 TAB PO (08:00)
[2024-01-23] MEDS: dilTIAZem CD 120 MG CAPCR PO (08:00)
[2024-01-23] MEDS: Normal Saline Flush 10 ML SYR IVP (08:01)
[2024-01-23] MEDS: Calcium 600mg/Vit D 200U TAB 1 TAB PO (08:11)
[2024-01-23] MEDS: Polyethylene Glycol 3350 17 GM PACKET PO (08:12)
--- NOTE | 2024-01-23 08:51 | INITIAL_ITS ---
Date of service: 01/23/24 Time of Service: 08:51 Care Management Initial Assmt Initial Assessment Reason for Hospitalization: pneumonia Functional Status/Living Situation Patient Presentation: Lucretia was sitting up in bed when CM met with her. She was very pleasant and engaged easily with CM. She talked about the fact that she was and has 3 wonderful sons who live in [place]. She has one grandchild who is 2 years old and she shared that she sees him as much as possible, usually every other weekend. 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 She is independent with ADLs and self care and does not receive any community services. Lucretia stated that she is feeling better but is not yet ready to go home. Town of Residence: [place] Resides with: Alone Significant Other/Family: Out of area (Nick Rodrigues lives in [place], [place]) Natural Supports: sons Ravi, Christian and Ever Employment Status: Retired Instrumental Activities of Daily Living (ADLs): Independent Medications Medication Management: No Issues/Barriers identified Physical Functioning/Mobility Assistive Device: none Advance Directives Advance Directives: Do you have an Advance Directive: N 09/04/21 10:28 AD On File at [facility]: N 09/04/21 10:28 Date Asked 01/22/24 01/22/24 14:15 AD Date Reviewed COLST On File at [facility] COLST Date Scanned Code Status Resuscitation Status Full Code Insurance Coverage/Financial Issues Insurance: I[employer] medicare Replacement ACO Member: No Care Team Visit Care Team Role Provider Type Yahaira Araiza Primary Care Provider NON-[facility] STAFF PHYSICIAN Sean Ramirez MD Emergency Provider [facility] STAFF PHYSICIAN Nitin Menezes MD Admit Provider [facility] STAFF PHYSICIAN Attending Provider Discharge Potential Discharge Needs: Consult Consult Services Needed: Cardiology and PCP F/U Appt Anticipated Barriers to Discharge: None Identified Patient/Family Education Needs: Review discharge instructions, discuss Ask Me Three and Other (medications, activity, limitations, follow up plan) Transportation: Private vehicle Plan: Anticipate Lucretia will be discharged home with no new services. She [facility]. CM will follow and continue to assess for discharge needs. PFSH All Active Problems (System 10/04/23 @ 14:30 by Alice Payne) Sepsis (Acute) Discharge planning issues (Acute) Contraindication to deep vein thrombosis (DVT) prophylaxis (Acute) Hypomagnesemia (Acute) Pneumonia (Acute) Dyspnea (Acute) Dizziness of unknown cause (Acute) Hypertension (Chronic) Dizzy spells (Acute) Peripheral vascular disease (Chronic) Atrial fibrillation (Chronic) Sensorineural hearing loss of both ears (Acute) Uterine prolapse (Acute) Cystocele and rectocele with incomplete uterovaginal prolapse (Acute) Stage IV rectocele. 07/2020 #3 incontinence dish with support . 08/15/2020 76 mm short stem Gellhorn placed. Patient wishes referral to continence center at definitive surgery. Lymphadenopathy, inguinal (Acute) left Dupuytren's contracture of both hands (Acute) Status post bilateral partial palmar fasciectomy with involvement of little finger DOS: 07/26/2021 Medical History (Updated 01/22/24 @ 15:55 by MAXINE JJ) Melanoma chest Eustachian tube dysfunction UTI (urinary tract infection) Diarrhea Unspecified injury of head, initial encounter Mycobacterium avium complex Thrush, oral B12 deficiency Osteoporosis Urinary incontinence Surgical History (System 10/04/23 @ 14:30 by Alice Payne) Hx of vaginal surgery History of lung biopsy Colonoscopy - MAC (01/28/17) Arthroplasty of knee (12/21/15) RIGHT KNEE W/PARTIAL LATERAL MENISECTOMY AND LIMITED CHONDROPLASTY OF TROCHLEAS AND MESIAL ASCPECT OF MEDIAL FEMORAL CONDYLE/DR. HASKINS Social History (System 10/04/23 @ 14:30 by Alice Payne) Smoking/Tobacco Use Status: Former Tobacco Use Smoking risk assessment performed?: Yes Drug use: Never Substance use type: does not use Housing: house Current gender identity: female Do you feel safe at home: Yes Do you feel safe in your relationship?: Yes SDOH(Care Management) Screening Will the Patient Participate in the Screening?: Yes Do you worry about having a steady place to live?: no In the past 12 months, have you had to go without electric, gas, oil or water in your home?: no Have you or anyone in your house had to go without enough food to eat?: no Has lack of transportation kept you from medical appointments or from doing things needed for daily living?: no Has anyone in your support network made you feel unsafe for any reason?: no
--- NOTE | 2024-01-23 09:34 | NUR.NOTE ---
Pt reports 8I just don;t feel good.Nursing Note:
--- NOTE | 2024-01-23 11:15 | W.PM.PROGNOT ---
Date of Service Date of service: 01/23/24 Time of Service: 11:15 Assessment and Plan Assessment and plan (1) Pneumonia: Status: Acute Assessment and plan: As per CTA:multi-focal ground glass infiltrates Ceftriaxone Doxycycline IS Acapella Mucinex Blood cultures pending (2) Sepsis: Status: Acute Assessment and plan: SIRS: -WBC > 12, RR>20 and HR > 90 Source of infection : -Pneumonia As above (3) Dyspnea: Status: Acute Assessment and plan: O2 supplementation for sat <92% As above PT consult (4) Hypertension: Status: Chronic Assessment and plan: Continue home dose Satolol (5) Atrial fibrillation: Status: Chronic Assessment and plan: On home dose diltiazem CD Telemetry (6) Hypomagnesemia: Status: Acute Assessment and plan: Mg 1.7 supplementation in the ED Mg level in AM (7) Contraindication to deep vein thrombosis (DVT) prophylaxis: Status: Acute Assessment and plan: On Rivaroxaban for A-Fib and embolic risks (8) Discharge planning issues: Status: Acute Assessment and plan: CM to f/u Discussed with Dr. Menezes Subjective Subjective Patient reports: no new complaints, feels better, tolerating liquids well, tolerating a regular diet, voiding w/o difficulty, afebrile and other (Reports sleeping well); denies diarrhea, nausea, vomiting or shortness of breath Exam Narrative Exam Narrative: Constitutional The patient is sitting in bed comfortable, without acute distress HENMT: Facial structures with normal appearance Neuro:alert and oriented to self, person, place, time and situation. No focal deficit Chest:Chest is symmetrical and normal appearance Resp: Normal respiratory pattern, speaks in full sentences, unlabored breathing,diminished left upper lung field, clear otherwise Cardio: Irregular, telemetry, atrial fibrillation HR 78, no murmur, positive pedal and radial pulses GI: Abdomen is not distended, soft and non tender, bowel sounds are present Psych: RASS 0, congruent mood and normal affect. Objective Last Vital Signs Temp 36.8 C 01/23/24 07:14 Pulse 77 01/23/24 07:14 Resp 18 01/23/24 07:14 BP 101/66 01/23/24 07:14 Pulse Ox 96 01/23/24 07:14 Laboratory Results - last 24 hr 01/22/24 01/22/24 01/22/24 13:33 13:45 16:35 WBC 21.80 H RBC 3.82 L Hgb 12.9 Hct 39.1 MCV 102 H MCH 33.8 H MCHC 33.0 RDW 12.8 Plt Count 492 H MPV 8.6 Immature Gran % 0.6 Neutrophils % 83.5 Lymphocytes % 8.0 Monocytes % 7.0 Eosinophils % 0.6 Basophils % 0.3 Nucleated RBC % 0.0 Absolute Neutrophils 18.20 H Absolute Lymphocytes 1.74 Absolute Monocytes 1.53 H Absolute Eosinophils 0.13 Absolute Basophils 0.07 RBC Morphology Normal VBG pH 7.44 H VBG pCO2 42 VBG pO2 21 VBG HCO3 29 H VBG Total CO2 26 VBG O2 Saturation 36 VBG Base Excess 5 H Sodium 136 Potassium 4.1 Chloride 99 Carbon Dioxide 27.7 Anion Gap 9.3 BUN 11 Creatinine 0.8 Est GFR (CKD-EPI 2020) 77.27 Glucose 95 Calcium 9.5 Magnesium 1.7 L Total Bilirubin 0.6 AST 18 ALT 25 Alkaline Phosphatase 53 Troponin I < 50 < 50 NT-Pro-B Natriuret Pep 2393 H Total Protein 7.9 Albumin 3.4 Procalcitonin < 0.1 COVID-19 Source Nasopharynx SARS-CoV-2 (PCR) Negative Influenza Type A (PCR) Negative Influenza Type B (PCR) Negative RSV (PCR) Negative 01/23/24 01/23/24 06:28 06:28 WBC 16.93 H RBC 3.37 L Hgb 11.4 Hct 34.3 L MCV 102 H MCH 33.8 H MCHC 33.2 RDW 13.1 Plt Count 407 H MPV 8.9 Immature Gran % 0.5 Neutrophils % 78.9 Lymphocytes % 10.6 Monocytes % 8.3 Eosinophils % 1.2 Basophils % 0.5 Nucleated RBC % 0.0 Absolute Neutrophils 13.36 H Absolute Lymphocytes 1.79 Absolute Monocytes 1.41 H Absolute Eosinophils 0.20 Absolute Basophils 0.08 RBC Morphology VBG pH VBG pCO2 VBG pO2 VBG HCO3 VBG Total CO2 VBG O2 Saturation VBG Base Excess Sodium 139 Potassium 4.2 Chloride 104 Carbon Dioxide 26.2 Anion Gap 8.8 BUN 8 Creatinine 0.8 Est GFR (CKD-EPI 2020) 77.27 Glucose 94 Calcium 8.5 Magnesium 1.9 Cancelled Total Bilirubin AST ALT Alkaline Phosphatase Troponin I NT-Pro-B Natriuret Pep Total Protein Albumin Procalcitonin COVID-19 Source SARS-CoV-2 (PCR) Influenza Type A (PCR) Influenza Type B (PCR) RSV (PCR)
--- NOTE | 2024-01-23 11:18 | DSE_ITS ---
Date of service: 01/23/24 Time of Service: 11:18 DS: Diagnosis Discharge Diagnosis (1) Pneumonia: Status: Acute (2) Sepsis: Status: Acute (3) Dyspnea: Status: Acute (4) Hypertension: Status: Chronic (5) Atrial fibrillation: Status: Chronic (6) Hypomagnesemia: Status: Acute (7) Contraindication to deep vein thrombosis (DVT) prophylaxis: Status: Acute (8) Discharge planning issues: Status: Acute Discharge Plan Disposition Patient Disposition: Home Condition: Improving Discharge Details Reason For Visit: Sepsis, Pneumonia Admit Date/Time: 01/22/24 15:06 Admit Provider: Nitin Menezes Attending Provider: Nitin Menezes Primary Care Provider: Yahaira Araiza [facility] Course Hospital Course: This 73 years old female patient with a past medical history of Mycobacterium AVM complex infection, atrial fibrillation on rivaroxaban, hypertension and failed outpatient pneumonia treatment with azithromycin presented to the ED at [facility] on 12/23/2023 for evaluation of worsening difficulty breathing. In the ED, the patient reported chills, shortness of breath, dry cough that prompted her to seek evaluation. At the time the patient was normotensive tensive afebrile with an oxygen saturation of 98% on room air. The EKG and vital signs showed that the patient was tachycardic with heart rate between 106 and 120; respiratory rate was around 24. Lab results were significant for leukocytosis and hypomagnesemia for which replacement was initiated in the emergency room. The chest CT showed multifocal groundglass infiltrates mostly marked to the right upper lobe and the left lower lobe. In the emergency room IV ceftriaxone and doxycycline were initiated. The hospitalist was consulted and the patient was admitted for evaluation and management of sepsis due to pneumonia. The patient continued to receive IV treatment with the ceftriaxone and doxycycline. The patient verbalized feeling better. The patient was on telemetry and is still in atrial-fibrillation with a controlled HR of 78. Leukocytosis improved and went from 21.80 to 16.93, the patient remained afebrile with the normal vital signs without oxygen supplementation requirement. Magnesium was corrected to 1.9 and neutrophils trending down at 13. Physical therapy for safe discharge and recommendation was made to discharge the patient home without any services. The patient will be sent home on oral cefpodoxime and doxycycline as well as a short course of mucinex and probiotics. The patient will have to follow-up with her PCP within a week of discharge. The patient mention having lost her pulp machine operator from [place] and would like to obtain referral closer to home. Discussed with Dr. Menezes Home Meds and New Rx's Prescriptions: New guaifenesin [Mucus Relief ER] 600 mg Tablet Extended Release 12hr 600 mg PO BID Qty: 10 0RF Bio-K plus 50 billion cell capsule,delayed release(DR/EC) 1 cap PO DAILY Qty: 5 0RF doxycycline hyclate 100 mg capsule 100 mg PO BID Qty: 10 0RF cefpodoxime 200 mg tablet 200 mg PO BID Qty: 10 0RF Rx Instructions: must administer with a meal/food Continued sotalol 120 mg tablet 120 mg PO BID Spiriva Respimat 1.25 mcg/actuation mist 2 puff inhalation DAILY Arnuity Ellipta 200 mcg/actuation blister with device 1 inh inhalation DAILY atorvastatin 40 mg tablet 40 mg PO DAILY PreserVision AREDS 4,296 mcg-226 mg-90 mg capsule 1 cap PO BID multivitamin [Multi-Day] 1 EACH tablet 1 ea PO DAILY calcium carbonate-vitamin D3 1 EACH tablet 1 ea PO BID alprazolam 0.5 MG tablet 0.5 mg PO PRN PRN zolpidem 10 MG tablet 5 mg PO HS PRN PRN Prolia 60 mg/mL syringe 60 mg SUBCUT .weekly Patient Comments: pt requests to be removed Xarelto 20 mg tablet 20 mg PO DAILY diltiazem HCl 120 mg capsule,extended release 24hr 120 mg PO DAILY Patient Comments: TAKE ONE CAPSULE BY MOUTH EVERY DAY valacyclovir 1 gram tablet 1,000 mg PO BID Patient Comments: TAKE ONE TABLET BY MOUTH EVERY 12 HOURS acetaminophen 500 mg tablet 500 mg PO Q6H PRN PRN (Reason: pain) Qty: 40 3RF Discharge Instructions Referrals: Yahaira Araiza [Primary Care Provider] - 01/29/24 9:00 am (F/u within 7 days of discharge please) Caron Saavedra PA [[employer]] - (This 73 years old female patient with past medical history of mycobacterium avium complex infection, atrial fibrillation on rivaroxaban, hypertension, failed outpatient pneumonia treatment with azithromycin. Chest CT showed multifocal groundglass infiltrates mostly marked to the right upper lobe and the left lower lobe& positive RR>22, HR>90, WBC at 21; treated with doxy and ceftriaxone then home with doxy and cefpodoxime. Her pulp machine operator from [place] left [place] and would like to f/u closer to home.) Activity:: Activity as Tolerated Equipment/Supplies:: No Equipment Needed Diet:: As Tolerated Discharge Orders Discharge Orders: Discharge Order (Routine); Ordered 01/23/24 Ordered By: Diana Oliver DS: Summary Time Spent with Patient providing and/or coordinating discharge services: Greater than 30 minutes Status at Discharge Functional status at discharge: independent ambulation Overall status at discharge: patient is progressing back to baseline Mental Status: mental status grossly normal Speech and Movement: speech and movement normal Mood: congruent mood Affect: normal affect Quality:SDOH Health Related Social Needs: No Data to Display Exam Narrative Exam Narrative: Constitutional The patient is sitting in bed comfortable, without acute distress HENMT: Facial structures with normal appearance Neuro:alert and oriented to self, person, place, time and situation. No focal deficit Chest:Chest is symmetrical and normal appearance Resp: Normal respiratory pattern, speaks in full sentences, unlabored breathing,diminished left upper lung field, clear otherwise Cardio: Irregular, telemetry, atrial fibrillation HR 78, no murmur, positive pedal and radial pulses GI: Abdomen is not distended, soft and non tender, bowel sounds are present Psych: RASS 0, congruent mood and normal affect. Psych Mental Status: mental status grossly normal Speech and Movement: speech and movement normal Mood: congruent mood Affect: normal affect DS: Data Vitals/I&O Vitals and I&O: Vital Signs Temperature 36.8 C 01/23/24 07:14 Temperature Source Tympanic 01/23/24 07:14 Pulse 77 01/23/24 07:14 Pulse Rhythm Irregular 01/23/24 09:20 Pulse 119 H 01/22/24 15:40 Respiratory Rate 18 01/23/24 07:14 Respiratory Effort Normal 01/23/24 09:20 Respiratory Depth Normal 01/23/24 09:20 Respiratory Pattern Normal 01/23/24 09:20 Blood Pressure 101/66 01/23/24 07:14 Blood Pressure Position Supine 01/22/24 15:12 Pulse Oximetry 96 01/23/24 07:14 Oxygen Delivery Method Room Air 01/23/24 07:14 Oxygen Flow Rate 0 01/23/24 07:14 Pain Level 0 01/23/24 07:14 Comment patient said not to wake her for 3am vitals if she is asleep 01/23/24 03:39 Intake & Output 01/22/24 01/22/24 01/23/24 11:59 23:59 11:59 Intake Total 1350 / 1350 500 / 500 Output Total 1050 / 1050 700 / 700 Balance 300 / 300 -200 / -200 Weight 71.894 kg Intake: IV 1350 / 1350 100 / 100 Oral 400 / 400 Output: Urine 1050 / 1050 700 / 700 Other: Urine Color Yellow Yellow Urine Appearance Clear Clear Urine Odor None Comment patient has been uop to the bathroom Voiding Methods Toilet Toilet Data Completed and Pending Labs on day of discharge: Labs from last 24 hours 01/23/24 01/23/24 01/22/24 06:28 06:28 16:35 WBC 16.93 H RBC 3.37 L Hgb 11.4 Hct 34.3 L MCV 102 H MCH 33.8 H MCHC 33.2 RDW 13.1 Plt Count 407 H MPV 8.9 Immature Gran % 0.5 Neutrophils % 78.9 Lymphocytes % 10.6 Monocytes % 8.3 Eosinophils % 1.2 Basophils % 0.5 Nucleated RBC % 0.0 Absolute Neutrophils 13.36 H Absolute Lymphocytes 1.79 Absolute Monocytes 1.41 H Absolute Eosinophils 0.20 Absolute Basophils 0.08 RBC Morphology VBG pH VBG pCO2 VBG pO2 VBG HCO3 VBG Total CO2 VBG O2 Saturation VBG Base Excess Sodium 139 Potassium 4.2 Chloride 104 Carbon Dioxide 26.2 Anion Gap 8.8 BUN 8 Creatinine 0.8 Est GFR (CKD-EPI 2020) 77.27 Glucose 94 Calcium 8.5 Magnesium Cancelled 1.9 Total Bilirubin AST ALT Alkaline Phosphatase Troponin I < 50 NT-Pro-B Natriuret Pep Total Protein Albumin Procalcitonin COVID-19 Source SARS-CoV-2 (PCR) Influenza Type A (PCR) Influenza Type B (PCR) RSV (PCR) 01/22/24 01/22/24 13:45 13:33 WBC 21.80 H RBC 3.82 L Hgb 12.9 Hct 39.1 MCV 102 H MCH 33.8 H MCHC 33.0 RDW 12.8 Plt Count 492 H MPV 8.6 Immature Gran % 0.6 Neutrophils % 83.5 Lymphocytes % 8.0 Monocytes % 7.0 Eosinophils % 0.6 Basophils % 0.3 Nucleated RBC % 0.0 Absolute Neutrophils 18.20 H Absolute Lymphocytes 1.74 Absolute Monocytes 1.53 H Absolute Eosinophils 0.13 Absolute Basophils 0.07 RBC Morphology Normal VBG pH 7.44 H VBG pCO2 42 VBG pO2 21 VBG HCO3 29 H VBG Total CO2 26 VBG O2 Saturation 36 VBG Base Excess 5 H Sodium 136 Potassium 4.1 Chloride 99 Carbon Dioxide 27.7 Anion Gap 9.3 BUN 11 Creatinine 0.8 Est GFR (CKD-EPI 2020) 77.27 Glucose 95 Calcium 9.5 Magnesium 1.7 L Total Bilirubin 0.6 AST 18 ALT 25 Alkaline Phosphatase 53 Troponin I < 50 NT-Pro-B Natriuret Pep 2393 H Total Protein 7.9 Albumin 3.4 Procalcitonin < 0.1 COVID-19 Source Nasopharynx SARS-CoV-2 (PCR) Negative Influenza Type A (PCR) Negative Influenza Type B (PCR) Negative RSV (PCR) Negative 01/22/24 14:00 Blood Blood Culture - Pending 01/22/24 13:45 Blood Blood Culture - Pending Preliminary micro results at discharge 01/22/24 14:00 Blood Culture - Pending Blood 01/22/24 13:45 Blood Culture - Pending Blood [facility] All Active Problems (System 10/04/23 @ 14:30 by Alice Payne) Sepsis (Acute) Discharge planning issues (Acute) Contraindication to deep vein thrombosis (DVT) prophylaxis (Acute) Hypomagnesemia (Acute) Pneumonia (Acute) Dyspnea (Acute) Dizziness of unknown cause (Acute) Hypertension (Chronic) Dizzy spells (Acute) Peripheral vascular disease (Chronic) Atrial fibrillation (Chronic) Sensorineural hearing loss of both ears (Acute) Uterine prolapse (Acute) Cystocele and rectocele with incomplete uterovaginal prolapse (Acute) Stage IV rectocele. 07/2020 #3 incontinence dish with support . 08/15/2020 76 mm short stem Gellhorn placed. Patient wishes referral to continence center at definitive surgery. Lymphadenopathy, inguinal (Acute) left Dupuytren's contracture of both hands (Acute) Status post bilateral partial palmar fasciectomy with involvement of little finger DOS: 07/26/2021 Medical History (Updated 01/23/24 @ 14:29 by Diana Oliver APRN) Melanoma chest Eustachian tube dysfunction UTI (urinary tract infection) Diarrhea Unspecified injury of head, initial encounter Mycobacterium avium complex Thrush, oral B12 deficiency Osteoporosis Urinary incontinence Surgical History (System 10/04/23 @ 14:30 by Alice Payne) Hx of vaginal surgery History of lung biopsy Colonoscopy - MAC (01/28/17) Arthroplasty of knee (12/21/15) RIGHT KNEE W/PARTIAL LATERAL MENISECTOMY AND LIMITED CHONDROPLASTY OF T ROCHLEAS AND MESIAL ASCPECT OF MEDIAL FEMORAL CONDYLE/DR. HASKINS Social History (System 10/04/23 @ 14:30 by Alice Payne) Smoking/Tobacco Use Status: Former Tobacco Use Smoking risk assessment performed?: Yes Drug use: Never Substance use type: does not use Housing: house Current gender identity: female Do you feel safe at home: Yes Do you feel safe in your relationship?: Yes Time Spent with Patient Time Spent with Patient: 45-69 minutes Time was spent: preparing to see the patient(eg.review tests), obtaining and/or reviewing separately otained hiistory, ordering medications,tests, procedures, referring, communicating with other health healthcare manager, indepentently interpreting results, counseling the patient and care coordination
[2024-01-23 11:22] VITALS: BP 104/71; PULSE 72; RESP 20; TEMP 36.4; O2SAT 96
[2024-01-23] MEDS: cefTRIAXone 2 GM/50 ML BAG IVPB (14:12)
--- NOTE | 2024-01-23 14:19 | PT.INIE ---
PT Notes Visit Reasons: Sepsis, Pneumonia Physical Therapy Inpatient Initial Evaluation Date: 01/23/2024 Referring Doctor: Diana Oliver NP PT Orders: PT CONSULT: Safety consult for DC Precautions: Fall. Standard. Activity as tolerated. Patient Profile/Admitting Diagnosis: Lucretia is a 73-year-old female who presented to the ED on 01/22/2024 due to shortness of breath, chills, and dry cough. Patient is admitted for management of pneumonia, sepsis, dyspnea, HTN, AF, and hypomagnesemia. PMHX: All Active Problems (System 10/04/23 @ 14:30 by Alice Payne) Sepsis (Acute) Discharge planning issues (Acute) Contraindication to deep vein thrombosis (DVT) prophylaxis (Acute) Hypomagnesemia (Acute) Pneumonia (Acute) Dyspnea (Acute) Dizziness of unknown cause (Acute) Hypertension (Chronic) Dizzy spells (Acute) Peripheral vascular disease (Chronic) Atrial fibrillation (Chronic) Sensorineural hearing loss of both ears (Acute) Uterine prolapse (Acute) Cystocele and rectocele with incomplete uterovaginal prolapse (Acute) Stage IV rectocele. 07/2020 #3 incontinence dish with support . 08/15/2020 76 mm short stem Gellhorn placed. Patient wishes referral to continence center at definitive surgery. Lymphadenopathy, inguinal (Acute) left Dupuytren's contracture of both hands (Acute) Status post bilateral partial palmar fasciectomy with involvement of little finger DOS: 07/26/2021 Medical History (Updated 01/22/24 @ 15:55 by MAXINE JJ) Melanoma chest Eustachian tube dysfunction UTI (urinary tract infection) Diarrhea Unspecified injury of head, initial encounter Mycobacterium avium complex Thrush, oral B12 deficiency Osteoporosis Urinary incontinence Surgical History (System 10/04/23 @ 14:30 by Alice Payne) Hx of vaginal surgery History of lung biopsy Colonoscopy - MAC (01/28/17) Arthroplasty of knee (12/21/15) RIGHT KNEE W/PARTIAL LATERAL MENISECTOMY AND LIMITED CHONDROPLASTY OF TROCHLEAS AND MESIAL ASCPECT OF MEDIAL FEMORAL CONDYLE/DR. HASKINS Social History/Home Situation: Lives alone in a private home with one-step to enter without rails. Independent of all aspects of ADLs prior to admission. Still drives. Has 2 dogs. Equipment Owned/DME: None Subjective: Agreeable tot consult. Denied headache, chest pain, and lightheadedness throughout session.Objective: General Observation: Telemetry monitoring in place. IV accesses in B UE. Mental Status: Alert and oriented as to person, place, time, and purpose. Able to pay attention, focus, and respond appropriately. Pain: Non reported Vital Signs: After ambulation activity 100/72 mmHg, 71 bpm, and 97% on room air ROM: Right Upper Extremity: Shoulder Flexion WFL. Shoulder abduction WFL. Elbow flexion WFL. Wrist flexion WFL. Functional opening and closing of hand WFL. Left Upper Extremity: Shoulder Flexion WFL. Shoulder abduction WFL. Elbow flexion WFL. Wrist flexion WFL. Functional opening and closing of hand WFL. Right Lower Extremity: Hip flexion WFL. Hip abduction WFL. Knee flexion WFL. Ankle dorsiflexion WFL. Ankle plantarflexion WFL. Left Lower Extremity: Hip flexion WFL. Hip abduction WFL. Knee flexion WFL. Ankle dorsiflexion WFL. Ankle plantarflexion WFL. Strength: Right Upper Extremity: Shoulder flexors 4/5. Shoulder abductors 4/5. Elbow flexors 5/5. Elbow extensors 5/5. Machinist Class B strong. Left Upper Extremity: Shoulder flexors 4/5. Shoulder abductors 4/5. Elbow flexors 5/5. Elbow extensors 5/5. Machinist Class B strong. Right Lower Extremity: Hip flexors 4/5. Hip abductors 4/5. Knee flexors 5/5. Knee extensors 4/5. Ankle dorsiflexors 4-/5. Ankle plantarflexors 4-/5. Left Lower Extremity: Hip flexors 4/5. Hip abductors 4/5. Knee flexors 5/5. Knee extensors 4/5. Ankle dorsiflexors 4-/5. Ankle plantarflexors 4-/5. Bed Mobility/Transfers: Rolling independent Supine to sit independent Sit to supine independent Sit to stand independent Stand to sit independent with with [] cues for safe/correct technique Gait: Minimal verbal cueing provided only for directions with patient able to cover 250 feet on level surface ambulation without an assistive device with minimal shortness of breath that resolved with rest. Denied headache, chest pain, and lightheadedness throughout activity. Stairs: Minimal verbal cueing provided for safety with negotiating 3 x 4 inch steps and 2 x 6 inch steps and only onto 1 rail with supervision assist only. Balance: Static Sitting: Normal Dynamic Sitting: Normal Static Standing: Good Dynamic Standing: Good Special Tests: Mobility Limitations Standardized Measure [facility] AM-PAC 6 clicks Basic Mobility Inpatient Short Form: Raw Score: 24 CMS Score: 0% deficit Informed Consent/Education: Patient was instructed in purpose of PT consult and plan of care. Agreeable to proceed with established PT POC to achieve personal goals. Assessment: Patient only required supervision with level surface ambulation using no assistive device during ambulation activity with only minimal shortness of breath that resolved with rest. PT evalaution only. No skilled services needed at this time. Patient is assessed as a 75477 low complexity based on the following: History: 73-year-old female with past medical history as indicated above Examination: As above Presentation: Stable Decision Makin low complexity Goals: N/A. PT evaluation and 1 tx session only for functional mobility training. Plan of Care/Treatment Plan: N/A. PT evaluation and 1 tx session only for functional mobility training. DISCHARGE RECOMMENDATIONS: [X Home when medically cleared by hospitalist. No equipment needs at this time. Home with no services. [] Home with services [specify] [] Home with outpatient PT [] [] SNF for continued rehabilitation [] [] [employer] Care [] [] SNF versus LTC based on ability to participate and progress [] TREATMENT CODE/TIME: 9716 2 x 20 minutes for 1 unit, 48198 x 21 minutes for 1 unit (13:39?14:10). Thank you for the opportunity to participate in the care of this patient. Bria Morgan PT, DPT, CLT [facility] [place], [place]
[2024-01-23 14:50] VITALS: BP 104/65; PULSE 73; RESP 18; TEMP 36.7; O2SAT 96
[2024-01-23] MEDS: DOXYCYCLINE 100 MG in Normal Saline 100 ML 8760 MG IVPB (15:32)
--- NOTE | 2024-01-23 15:42 | CHAPLAIN ---
Lucretia was sitting in a chair by the window when I visited. She said she is feeling better but not ready to go home. She said friends have been visiting and she's been in touch with her sons. Some family members are coming to visit this weekend and she hopes to be home for that. Lucretia was pleasant and open to conversation.
== END 2024-01-23 17:08 | disposition home or self-care (01) | DRG 871 ==
LOC: ER 15:51 → MS 01-23 11:19
PROVIDERS: Nurse Practitioner Acute Care; Admitting Provider Family Medicine; Emergency Provider Emergency Medicine; PCP Family Medicine; Visit Provider Family Medicine
DX: A41.9 Sepsis, unspecified organism (principal); J18.9 Pneumonia, unspecified organism; E83.42 Hypomagnesemia; I48.91 Unspecified atrial fibrillation; I10 Essential (primary) hypertension; R06.00 Dyspnea, unspecified; I73.9 Peripheral vascular disease, unspecified; H90.3 Sensorineural hearing loss, bilateral; E53.8 Deficiency of other specified B group vitamins; M81.0 Age-related osteoporosis without current pathological fracture; R32 Unspecified urinary incontinence; Z96.651 Presence of right artificial knee joint; Z79.01 Long term (current) use of anticoagulants; Z79.899 Other long term (current) drug therapy
CPT/HCPCS: 00123; 36415; 71275; 80048; 80053; 82805; 84145; 87040; 87637; 93005; 94640; 96361; 96365; 96367; 96368; 97161; 97530; 99285; 83735; 83880; 84484; 85025; 93010; 99223; 99238; J0131; J0696; J3475; J3490

== ENCOUNTER → 2024-01-31 12:47 | Outpatient (BNVA) | payer MEDICARE, SELFPAY | PROVIDERS: PCP Family Medicine; Referring Provider Family Medicine; Visit Provider Student in an Organized Health Care Education/Training Program | DX: J45.909 Unspecified asthma, uncomplicated (principal); J47.9 Bronchiectasis, uncomplicated; A31.0 Pulmonary mycobacterial infection; J18.9 Pneumonia, unspecified organism | CPT/HCPCS: 94664; 99215 ==

== ENCOUNTER 2024-03-10 11:26 | Emergency (ER) | payer MEDICARE, SELFPAY ==
[2024-03-10] VITALS (8 sets, daily range): BP systolic 119–148; BP diastolic 67–83; PULSE 73–82; RESP 18–20; TEMP 37.1; O2SAT 88–95
--- NOTE | 2024-03-10 11:50 | ED.GENADUL_ITS ---
Discharge Plan Disposition Patient Disposition: Home Condition: Stable Discharge Details Clinical Impression: COVID-19 Primary Care Provider: Yahaira Araiza ED Provider: Navya Rodriguez Home Meds and New Rx's Prescriptions: Continued sotalol 120 mg tablet 120 mg PO BID Arnuity Ellipta 200 mcg/actuation blister with device 1 inh inhalation DAILY atorvastatin 40 mg tablet 40 mg PO DAILY levalbuterol tartrate 45 mcg/actuation HFA aerosol inhaler 1 puff inhalation Q6H Qty: 15 7RF Patient Comments: Increased yesterday to up to 6 times a day PreserVision AREDS 4,296 mcg-226 mg-90 mg capsule 1 cap PO BID multivitamin [Multi-Day] 1 EACH tablet 1 ea PO DAILY calcium carbonate-vitamin D3 1 EACH tablet 1 ea PO BID alprazolam 0.5 MG tablet 0.5 mg PO PRN PRN zolpidem 10 MG tablet 5 mg PO HS PRN PRN Xarelto 20 mg tablet 20 mg PO DAILY Prolia 60 mg/mL syringe 60 mg SUBCUT [id number] Patient Comments: pt requests to be removed Rx Instructions: Next shot in June, diltiazem HCl 120 mg capsule,extended release 24hr 120 mg PO DAILY Patient Comments: TAKE ONE CAPSULE BY MOUTH EVERY DAY acetaminophen 500 mg tablet 500 mg PO Q6H PRN PRN (Reason: pain) Qty: 40 3RF Discharge Instructions Instructions: COVID-19 ED, Molnupiravir Additional Instructions: At this time you have tested positive for COVID-19, please take molnupiravir as directed. Continue with your previously prescribed inhalers. You are given a steroid called Solu-Medrol here in the department. CT imaging was done here in the department. Follow up with primary care provider in 3-5 days. Return to ED sooner if any worsening shortness of breath, chest pain, O2 saturation less than 90% for 15 minutes or more or concerns. Referrals: [facility] [Outside] - 2 weeks (Infectious disease, pulmonology) PULMONOLOGY,[facility] [OTHER] - Yahaira Araiza [Primary Care Provider] - 5 days Randi Escalante MD [ [facility] STAFF PHYSICIAN] - 1 week (Hx of MAC, bronchiec tasis, and Covid 19) HPI General Mode of arrival: ambulatory . Date/Time Provider Initiated Documentation: 03/10/24 11:38 . Limitations to Documentation: no limitations . Information obtained by: patient, RN notes reviewed and old records reviewed . HPI Narrative: 73 year old female presents with cc of increased SOB, fatigue, productive cough with yellow-tinged sputum, and increased work of breathing since Saturday. Patient was recently admitted for bilateral multilobular pneumonia and sepsis approximately a month ago. She also reports that it night she got a reading of 89% on room air at home. She does take lev albuterol which she reports every 4 hours, and Ellipta fluticasone inhaler once a day. Past medical history includes atrial fibrillation, Mycobacterium avium complex, asthma bronchiectasis, peripheral vascular disease. She does take Xarelto daily and diltiazem 120 mg Related Data Home Medications ?Medication ?Instructions ?Recorded ?Confirmed alprazolam 0.5 mg tablet 0.5 mg PO PRN PRN 12/13/15 03/10/24 calcium carbonate 600 mg-vitamin 1 ea PO BID 12/13/15 03/10/24 D3 5 mcg (200 unit) tablet multivitamin (Multi-Day tablet) 1 ea PO DAILY 12/13/15 03/10/24 zolpidem 10 mg tablet 5 mg PO HS PRN PRN 12/13/15 03/10/24 rivaroxaban 20 mg tablet (Xarelto) 20 mg PO DAILY 06/26/20 03/10/24 acetaminophen 500 mg tablet 500 mg PO Q6H PRN PRN pain #40 tabs 07/26/21 03/10/24 atorvastatin 40 mg tablet 40 mg PO DAILY 08/06/23 03/10/24 vitamins A,C,H-fqog-ilhovr 4,296 1 cap PO BID 08/06/23 03/10/24 mcg-226 mg-90 mg capsule (PreserVision AREDS) fluticasone furoate 200 1 inh inhalation DAILY 01/09/24 03/10/24 mcg/actuation blister powder for inhalation (Arnuity Ellipta) sotalol 120 mg tablet 120 mg PO BID 01/09/24 03/10/24 diltiazem HCl 120 mg 120 mg PO DAILY 01/22/24 03/10/24 capsule,extended release 24 hr denosumab 60 mg/mL subcutaneous 60 mg subcut [id number] 01/31/24 03/10/24 syringe (Prolia) levalbuterol tartrate 45 1 puff inhalation Q6H #15 grams 01/31/24 03/10/24 mcg/actuation aerosol inhaler Previous Rx's ?Medication ?Instructions ?Recorded acetaminophen 500 mg tablet 500 mg PO Q6H PRN PRN pain #40 tabs 07/26/21 levalbuterol tartrate 45 1 puff inhalation Q6H #15 grams 01/31/24 mcg/actuation aerosol inhaler Allergies Allergy/AdvReac Type Severity Reaction Status Date / Time ibandronate sodium (From AdvReac heartburn Unverified 03/10/24 11:45 Boniva) General Stated Complaint: RespSymp ISRA: 3 Course Vital Signs Vital signs: Vital Signs Temperature 37.1 C 03/10/24 11:41 Pulse 73 03/10/24 11:41 Respiratory Rate 18 03/10/24 11:41 Blood Pressure 148/83 H 03/10/24 11:41 Pulse Oximetry 94 03/10/24 11:41 Temperature 37.1 C 03/10/24 11:41 Temperature Source Skin 03/10/24 11:41 Pulse 73 03/10/24 11:41 Respiratory Rate 18 03/10/24 11:41 Blood Pressure 148/83 H 03/10/24 11:41 Blood Pressure Position Sitting 03/10/24 11:41 Pulse Oximetry 94 03/10/24 11:41 Oxygen Delivery Method Room Air 03/10/24 11:41 Oxygen Flow Rate 0 03/10/24 11:41 Pain Level 0 03/10/24 11:41 Medical Decision Making 73 year old female presents with cc of increased SOB, fatigue, productive cough with yellow-tinged sputum, and increased work of breathing since Saturday. Patient was recently admitted for bilateral multilobular pneumonia and sepsis approximately a month ago. She also reports that it night she got a reading of 89% on room air at home. She does take lev albuterol which she reports every 4 hours, and Ellipta fluticasone inhaler once a day. Denies any nausea vomiting, denies any lower extremity swelling denies any chest pain. Patient has a past medical history of Mycobacterium Tristian Comples, Afib, PVD, as thma, bronchiectasis, HTN, Hypercholesterolemia, According to medical record review, seen by Dr. Jacome in January and was instructed to follow up with [facility] ID for MAC. Workup ordered including CBC VBG CMP Fluvid swab blood cultures x 2 DuoNeb Solu- Medrol 125 mg. Patient denies any chest pain denies any headache she is slightly confused does have prolonged expiratory rate, does describe shortness of breath and dyspnea. Does have some expiratory wheezes noted on auscultation bilaterally and congested cough. Patient was discharged on cefepime and doxycycline Dr. Horton recommended no azithromycin. She also did order CT chest without contrast in 2 months we will repeat that today to reevaluate groundglass opacities. Differential diagnosis includes wanted to recurrent pneumonia, bronchiectasis chronic lung disease exacerbation, asthma exacerbation, COVID flu RSV, Positive for COVID-19, patient does qualfy for molnupiravir regimen. Patient is on a statin and Xarelto. On reevaluation patient was placed on 2 L nasal cannula after speaking with staffing branch manager she did drop down to 88% after nebulizer and Solu-Medrol, room air trial performed and patient maintained 94% even with ambulation. Patient read zoomed on room air. Discussed COVID results with patient and she verbalized understanding. Discussed treatment and CT imaging is pending at this time. Care is to be handed off to oncoming provider ERIKA Whitmore pending CT chest. Expected disposition is discharged home with molnupiravir pending CT results. This text was generated using [employer] dictation system, please disregard any oddities of phrase or misspellings. Medical Records Medical records reviewed: Yes I reviewed the patient's medical records. Lab Data Lab results reviewed: Yes I reviewed the patient's lab results. Labs: 03/10/24 12:35 Blood Blood Culture - Pending 03/10/24 12:15 Blood Blood Culture - Pending Laboratory Tests Range/Units 03/10/24 03/10/24 03/10/24 12:15 12:35 13:02 WBC (4.4-10.8) 10^3/uL 6.92 RBC (3.93-5.22) 10^6/uL 3.87 L Hgb (11.2-15.7) g/dL 13.1 Hct (36.0-46.0) % 40.0 MCV (80-95) fL 103 H MCH (27.0-33.0) pg 33.9 H MCHC (32.0-36.0) % 32.8 RDW (11.7-14.6) % 14.4 Plt Count (130-400) 10^3/uL 180 MPV (8.0-11.0) fL 9.6 Immature Gran % % 0.3 Neutrophils % % 69.6 Lymphocytes % % 16.8 Monocytes % % 10.1 Eosinophils % % 2.5 Basophils % % 0.7 Nucleated RBC % (0.0-0.3) % 0.0 Absolute Neutrophils (1.2-6.7) 10^3/uL 4.82 Absolute Lymphocytes (1.2-3.4) 10^3/uL 1.16 L Absolute Monocytes (0.1-0.8) 10^3/uL 0.70 Absolute Eosinophils (0.0-0.7) 10^3/uL 0.17 Absolute Basophils (0.0-0.2) 10^3/uL 0.05 VBG pH (7.31-7.41) 7.39 VBG pCO2 (41-51) mmHg 50 VBG pO2 mmHg 42 VBG HCO3 (23-28) mmol/L 30 H VBG Total CO2 (24-29) mmol/L 28 VBG O2 Saturation % 38 VBG Base Excess (-2-3) mmol/L 5 H VBG Lactate (0.6-1.4) mmol/L 1.0 Sodium (136-145) mmol/L 137 Potassium (3.5-5.1) mmol/L 3.9 Chloride (98-107) mmol/L 99 Carbon Dioxide (21.0-32.0) mmol/L 31.2 Anion Gap (3-11) mmol/L 6.8 BUN (7-18) mg/dL 9 Creatinine (0.55-1.02) mg/dL 0.8 Est GFR (CKD-EPI 2020) (mL/min/1.73m2) 77.27 Glucose (74-106) mg/dL 115 H Calcium (8.5-10.1) mg/dL 9.0 Total Bilirubin (0.2-1.0) mg/dL 0.59 AST (15-37) U/L 27 ALT (14-59) U/L 25 Alkaline Phosphatase (46-116) U/L 57 Total Protein (6.4-8.2) g/dL 7.7 Albumin (3.4-5.0) g/dL 3.5 COVID-19 Source Nasopharynx SARS-CoV-2 (PCR) (Negative) Positive A Influenza Type A (PCR) (Negative) Negative Influenza Type B (PCR) (Negative) Negative RSV (PCR) (Negative) Negative Quality:SDOH Health Related Social Needs: No Data to Display PFSH All Active Problems (Updated 01/24/24 @ 00:06 by MAXINE JJ) COVID-19 (Acute) Bronchiectasis (Acute) Asthma (Chronic) Mycobacterium avium complex (Acute) Dizziness of unknown cause (Acute) Hypertension (Chronic) Dizzy spells (Acute) Peripheral vascular disease (Chronic) Atrial fibrillation (Chronic) Sensorineural hearing loss of both ears (Acute) Uterine prolapse (Acute) Cystocele and rectocele with incomplete uterovaginal prolapse (Acute) Stage IV rectocele. 07/2020 #3 incontinence dish with support . 08/15/2020 76 mm short stem Gellhorn placed. Patient wishes referral to continence center at definitive surgery. Lymphadenopathy, inguinal (Acute) left Dupuytren's contracture of both hands (Acute) Status post bilateral partial palmar fasciectomy with involvement of little finger DOS: 07/26/2021 Medical History (Updated 03/10/24 @ 15:13 by Navya Rodriguez NP) Pneumonia Sepsis Discharge planning issues Contraindication to deep vein thrombosis (DVT) prophylaxis Melanoma chest Eustachian tube dysfunction UTI (urinary tract infection) Diarrhea Unspecified injury of head, initial encounter Thrush, oral B12 deficiency Osteoporosis Urinary incontinence Surgical History (Updated 01/24/24 @ 00:06 by MAXINE JJ) Hx of vaginal surgery History of lung biopsy Colonoscopy - MAC (01/28/17) Arthroplasty of knee (12/21/15) RIGHT KNEE W/PARTIAL LATERAL MENISECTOMY AND LIMITED CHONDROPLASTY OF TROCHLEAS AND MESIAL ASCPECT OF MEDIAL FEMORAL CONDYLE/DR. HASKINS Social History (System 10/04/23 @ 14:30 by Alice Payne) Smoking/Tobacco Use Status: Former Tobacco Use Smoking risk assessment performed?: Yes Drug use: Never Substance use type: does not use Housing: house Current gender identity: female Do you feel safe at home: Yes Do you feel safe in your relationship?: Yes Sign Out Sign Out Data: Sign Out Comment: Pending CT chest without contrast COVID-positive. Patient was given molnupiravir here in the department. History of MAC, most likely disposition discharge pending CT and reevaluation. Last updated by Navya Rodriguez NP at 03/10/24 15:50
[2024-03-10 12:25] LABS: BE (Venous) 5 mmol/L (-2-3); HCO3 (Venous) 30 mmol/L (23-28); O2 Sat (Venous) 38 %; TCO2 (Venous) 28 mmol/L (24-29); pCO2 (Venous) 50 mmHg (41-51); pH (Venous) 7.39 (7.31-7.41); pO2 (Venous) 42 mmHg
--- NOTE | 2024-03-10 12:30 | DI.CT_ITS ---
Exam(s) CT CHEST WO EXAM: CT CHEST WO CLINICAL HISTORY: SOB, Cough Hx of PNA, Mycobacterium Tristian Complex. TECHNIQUE: Multi planar reconstructions were performed. CONTRAST MATERIAL: None COMPARISON: CT CT CHEST PE CTA from 01/22/2024 FINDINGS: CHEST: LUNGS: There has been almost complete resolution of the previously described infiltrate in the left l ower lobe. Mild increased markings in the anterior segment of the left upper lobe and lingular segme nt are unchanged. In the opposite-right lung there has also been some improvement in the infiltrate in the posterior se gment of the right upper lobe although this has not completely resolved. Increased markings the righ t middle lobe are unchanged. Minimal increased markings in the right lower lobe noted, unchanged. There are no pleural effusions on either side. No significant focal findings in the trachea and main stem bronchi. No bronchiectasis evident. MEDIASTINUM: There is no obvious hilar nor mediastinal adenopathy. Partially visualized thyroid unrem arkable.No obvious axillary adenopathy CARDIAC: Heart size is normal. There is no pericardial effusion.Caliber of the thoracic aorta is wit hin normal limits. VISUALIZED UPPER ABDOMEN:No adrenal masses. No splenomegaly. OSSEOUS: T8 compression fractures unchanged. Some loss of height of the superior endplate of L1 also unchanged. No new significant fractures nor osseous lesions. IMPRESSION: 1. Compared to the prior CT scan of 01/22/2024 there has been some significant improvement in bilater al infiltrates with almost complete resolution of the left lower lobe infiltrate and some significant improvement in the right upper lobe infiltrate (posterior segment right upper lobe). No new areas o f infiltrate and no cavitation, given the history here. Also no pleural effusions. 2. Other findings as above. Called by myself to ER provider 03/10/2024 5:30 p.m. RADIATION DOSE DELIVERED: Total DLP DATA REPOSITORY: All CT scans at this facility are submitted to the National Radiology Data Registry (NRDR) Dose Index Registry (DIR) with the [employer] (A[employer]). RADIATION OPTIMIZATION: All CT scans at this facility use at least one of these dose optimization te chniques: automated exposure control; mA and/or kV adjustment per patient size (includes targeted exa ms where dose is matched to clinical indication); or iterative reconstruction.
[2024-03-10] MEDS: Albuterol/Ipratropium 3 ML UPD VIAL UPD (12:45)
[2024-03-10] MEDS: methylPREDNISolone SUCC 125 MG VIAL IVP (12:45)
[2024-03-10 12:50] LABS: Abs Immature Grans 0.02 10^3/uL (0.0-0.06); Absolute Basophil Count 0.05 10^3/uL (0.0-0.2); Absolute Eosinophil Count 0.17 10^3/uL (0.0-0.7); Absolute Lymphocyte Count 1.16 10^3/uL (1.2-3.4); Absolute Neutrophil Count 4.82 10^3/uL (1.2-6.7); Basophils % 0.7 %; Eosinophils % 2.5 %; HGB 13.1 g/dL (11.2-15.7); Immature Grans % 0.3 %; Lymphocytes % 16.8 %; MCH 33.9 pg (27.0-33.0); MCHC 32.8 % (32.0-36.0); MCV 103 fL (80-95); MPV 9.6 fL (8.0-11.0); Monocytes % 10.1 %; Neutrophils % 69.6 %; Platelet Count 180 10^3/uL (130-400); RBC 3.87 10^6/uL (3.93-5.22); RDW 14.4 % (11.7-14.6); RDW-SD 54.4 fL; WBC 6.92 10^3/uL (4.4-10.8)
[2024-03-10 12:54] LABS: ALT 25 U/L (14-59); AST 27 U/L (15-37); Albumin 3.5 g/dL (3.4-5.0); Alkaline Phosphatase 57 U/L (46-116); Anion Gap 6.8 mmol/L (3-11); BUN 9 mg/dL (7-18); Bilirubin, Total 0.59 mg/dL (0.2-1.0); CO2 31.2 mmol/L (21.0-32.0); CREATININE 0.8 mg/dL (0.55-1.02); Chloride 99 mmol/L (98-107); Estimated GFR 77.27 (mL/min/1.73m2); Glucose 115 mg/dL (74-106); Potassium 3.9 mmol/L (3.5-5.1); Sodium 137 mmol/L (136-145); Total Protein 7.7 g/dL (6.4-8.2)
[2024-03-10 13:45] LABS: Influenza A PCR Negative (Negative); Influenza B PCR Negative (Negative); RSV PCR Negative (Negative)
[2024-03-10 13:46] LABS: COVID-19 PCR Positive (Negative)
[2024-03-10 13:47] LABS: Source Nasopharynx
== END 2024-03-10 18:00 | disposition home or self-care (01) ==
PROVIDERS: Registered Nurse Emergency; Emergency Provider Physician Assistant; PCP Family Medicine
DX: U07.1 COVID-19 (principal); I48.91 Unspecified atrial fibrillation; Z79.01 Long term (current) use of anticoagulants
CPT/HCPCS: 71250; 80053; 82805; 87040; 87637; 96374; 99285; 83605; 85025; 87070; 87205; 99284; J2919; J7620

== ENCOUNTER → 2024-03-31 13:43 | Outpatient (BNVA) | payer MEDICARE, SELFPAY | PROVIDERS: PCP Family Medicine; Referring Provider Family Medicine; Visit Provider Physician Assistant Surgical | DX: J47.9 Bronchiectasis, uncomplicated (principal); J45.909 Unspecified asthma, uncomplicated; A31.0 Pulmonary mycobacterial infection; J18.9 Pneumonia, unspecified organism | CPT/HCPCS: 99214 ==

== ENCOUNTER 2024-03-31 22:04 | Outpatient (REF) | payer MEDICARE, SELFPAY | END 2024-03-31 22:05 | disposition home or self-care (01) | LOC: LBN 22:04 | PROVIDERS: PCP Family Medicine; Visit Provider Physician Assistant Surgical | DX: J47.9 Bronchiectasis, uncomplicated (principal); J45.909 Unspecified asthma, uncomplicated; A31.0 Pulmonary mycobacterial infection; R09.3 Abnormal sputum | CPT/HCPCS: 87070; 87205 ==

== ENCOUNTER → 2024-04-30 10:41 | Outpatient (BNVA) | payer MEDICARE, SELFPAY | PROVIDERS: PCP Family Medicine; Referring Provider Family Medicine; Visit Provider Physician Assistant Surgical | DX: J45.909 Unspecified asthma, uncomplicated (principal); J47.9 Bronchiectasis, uncomplicated; A31.0 Pulmonary mycobacterial infection | CPT/HCPCS: 99214 ==

== ENCOUNTER 2024-06-25 03:19 | Outpatient (RCR) | payer MEDICARE, SELFPAY ==
[2024-06-25] MEDS: Denosumab 60 MG/ML SYR SC (11:00)
== END 2024-07-18 23:59 | disposition home or self-care (01) ==
LOC: INF 03:19
PROVIDERS: PCP Family Medicine; Visit Provider Family Medicine
DX: M81.0 Age-related osteoporosis without current pathological fracture (principal)
CPT/HCPCS: 96372; J0897

== ENCOUNTER 2024-07-07 07:33 | Emergency (ER) | payer MEDICARE, SELFPAY ==
[2024-07-07] VITALS (21 sets, daily range): BP systolic 119–162; BP diastolic 62–99; PULSE 78–88; RESP 5–26; TEMP 36.5–36.6; O2SAT 90–96
--- NOTE | 2024-07-07 08:15 | DI.RAD_ITS ---
Exam(s) XR CHEST 2V PA LATERAL EXAM: XR CHEST 2V PA LATERAL CLINICAL HISTORY: cough, hx of MAC. TECHNIQUE: 2D digital imaging was performed. COMPARISON: No exams were available for comparison FINDINGS: 2 views: Heart size is normal. The mediastinum is not widened. Bilateral hyperinflation again noted. The previously described infiltrate in the superior segment of the left lower lobe has resolved. No new infiltrates evident. Stable wedge fracture of a midthorac ic vertebra is unchanged. No new fractures identified. Some scarring in both lung bases is unchange d. No pleural effusions. No CHF. IMPRESSION: Bilateral hyperinflation. Resolution of previous infiltrate in the superior segment left lower lobe. No new infiltrates nor pleural effusions. DATA REPOSITORY: RADIATION DOSE DELIVERED:
--- NOTE | 2024-07-07 08:20 | ED.GENADUL_ITS ---
Discharge Plan Disposition Patient Disposition: Home Condition: Good Discharge Details Clinical Impression: Bronchiectasis, URI (upper respiratory infection), Chest congestion, Cough, Elevated blood pressure reading Primary Care Provider: Yahaira Araiza ED Provider: Suad Saunders Home Meds and New Rx's Prescriptions: New amoxicillin-pot clavulanate 875-125 mg tablet 1 tab PO BID 5 Days Qty: 10 0RF prednisone 50 mg tablet 50 mg PO DAILY Qty: 4 0RF Continued sotalol 120 mg tablet 120 mg PO BID Arnuity Ellipta 200 mcg/actuation blister with device 1 inh inhalation DAILY cyanocobalamin (vitamin B-12) 1,000 mcg capsule 1,000 mcg PO DAILY atorvastatin 40 mg tablet 40 mg PO DAILY levalbuterol tartrate 45 mcg/actuation HFA aerosol inhaler 1 puff inhalation Q6H Qty: 15 7RF Patient Comments: Increased yesterday to up to 6 times a day PreserVision AREDS 4,296 mcg-226 mg-90 mg capsule 1 cap PO BID multivitamin [Multi-Day] 1 EACH tablet 1 ea PO DAILY calcium carbonate-vitamin D3 1 EACH tablet 1 ea PO BID alprazolam 0.5 MG tablet 0.5 mg PO PRN PRN zolpidem 10 MG tablet 5 mg PO HS PRN PRN Xarelto 20 mg tablet 20 mg PO DAILY Prolia 60 mg/mL syringe 60 mg SUBCUT [id number] Patient Comments: pt requests to be removed Rx Instructions: Next shot in June, diltiazem HCl 120 mg capsule,extended release 24hr 120 mg PO DAILY Patient Comments: TAKE ONE CAPSULE BY MOUTH EVERY DAY acetaminophen 500 mg tablet 500 mg PO Q6H PRN PRN (Reason: pain) Qty: 40 3RF Discharge Instructions Instructions: Bacterial Upper Respiratory Infection, Adult (DC), Bronchiectasis in adults Additional Instructions: As we discussed, you are negative for COVID and flu. Your chest x-ray is reassuring and does not show any neville pneumonia. Your clinical exam and vital signs have been stable. You are given your first dose of antibiotics and s teroids here. Will need to take the second dose of antibiotics tonight, this is sent home in the full container for you. Next dose of prednisone will be tomorrow and is available at the pharmacy. Please continue to encourage hydration. Please continue to use the Acapella as previously advised. You may use the nasal saline as frequently as she would like to help clear out some of that postnasal drip that seems to be triggering your gag reflex. Please continue with the Tylenol as needed for any recurrent fevers or discomfort. You are given a dose here today around 11 AM. Please do not exceed 3000 mg/day. Please call your primary care provider to schedule follow-up appointment in the next week for reevaluation. If you develop shortness of breath, chest pain, increased difficulty breathing or other new/worsening symptom please seek care urgently once again. Referrals: Yahaira Araiza [Primary Care Provider] - [facility] General Date/Time Provider Initiated Documentation: 07/07/24 07:51 . Limitations to Documentation: no limitations . Information obtained by: patient, RN notes reviewed and old records reviewed . History of Present Illness 74 year old F presents to the emergency department with the chief complaint of , Congestion, increased shortness of breath, described as moderate, and is localized to the face (Nasal congestion) and chest (Increased sputum production but denies any chest pain). Patient started experiencing this day(s) and it has been constant. No relieving factors improve symptom(s), No exacerbating factors reported . Patient notes cough, fever/chills, loss of appetite and shortness of breath; denies chest pain, diaphoresis, headaches, nausea/vomiting and rash. Patient did receive the following treatments prior to arrival, none Related Data Home Medications ?Medication ?Instructions ?Recorded ?Confirmed alprazolam 0.5 mg tablet 0.5 mg PO PRN PRN 12/13/15 07/07/24 calcium 600 mg (as 1 ea PO BID 12/13/15 07/07/24 carbonate)-vitamin D3 5 mcg (200 unit) tablet multivitamin (Multi-Day tablet) 1 ea PO DAILY 12/13/15 07/07/24 zolpidem 10 mg tablet 5 mg PO HS PRN PRN 12/13/15 07/07/24 rivaroxaban 20 mg tablet (Xarelto) 20 mg PO DAILY 06/26/20 07/07/24 acetaminophen 500 mg tablet 500 mg PO Q6H PRN PRN pain #40 tabs 07/26/21 07/07/24 atorvastatin 40 mg tablet 40 mg PO DAILY 08/06/23 07/07/24 vitamins A,C,S-mvqg-ilmzli 4,296 1 cap PO BID 08/06/23 07/07/24 mcg-226 mg-90 mg capsule (PreserVision AREDS) fluticasone furoate 200 1 inh inhalation DAILY 01/09/24 07/07/24 mcg/actuation blister powder for inhalation (Arnuity Ellipta) sotalol 120 mg tablet 120 mg PO BID 01/09/24 07/07/24 diltiazem HCl 120 mg 120 mg PO DAILY 01/22/24 07/07/24 capsule,extended release 24 hr denosumab 60 mg/mL subcutaneous 60 mg subcut [id number] 01/31/24 07/07/24 syringe (Prolia) levalbuterol tartrate 45 1 puff inhalation Q6H #15 grams 01/31/24 07/07/24 mcg/actuation aerosol inhaler cyanocobalamin (vitamin B-12) 1,000 mcg PO DAILY 04/30/24 07/07/24 1,000 mcg capsule amoxicillin 875 mg-potassium 1 tab PO BID 5 days #10 tabs 07/07/24 clavulanate 125 mg tablet prednisone 50 mg tablet 50 mg PO DAILY #4 tabs 07/07/24 Previous Rx's ?Medication ?Instructions ?Recorded acetaminophen 500 mg tablet 500 mg PO Q6H PRN PRN pain #40 tabs 07/26/21 levalbuterol tartrate 45 1 puff inhalation Q6H #15 grams 01/31/24 mcg/actuation aerosol inhaler amoxicillin 875 mg-potassium 1 tab PO BID 5 days #10 tabs 07/07/24 clavulanate 125 mg tablet prednisone 50 mg tablet 50 mg PO DAILY #4 tabs 07/07/24 Allergies Allergy/AdvReac Type Severity Reaction Status Date / Time ibandronate sodium (From AdvReac heartburn Unverified 07/07/24 07:54 Boniva) General Stated Complaint: RespSymp ISRA: 3 Review of Systems Constitutional Constitutional: Reports as per HPI and Denies headache(s) Eyes Eyes: Reports as per HPI, Denies eye discharge and Denies irritation ENT Ears, Nose, Mouth, and Throat: Reports as per HPI and Denies headache(s) Cardiovascular Cardiovascular: Reports as per HPI and Denies chest pain Respiratory Respiratory: Reports as per HPI Gastrointestinal Gastrointestinal: Reports as per HPI, Denies abdominal pain, Denies change in bowel habits, Denies nausea and Denies vomiting Integumentary/Breasts Skin/Breast: Reports as per HPI and Denies rash Neurologic Neurologic: Reports as per HPI and Denies headache(s) Exam Const General: cooperative, healthy appearing, comfortable, no acute distress, well developed and well groomed Nutritional Appearance: average body habitus and well nourished Orientation: alert and awake [facility] Head: normal to inspection, normocephalic and atraumatic Ears: hearing grossly normal bilaterally, external ears normal and TM's normal bilaterally General nose exam: external nose normal and nares normal Face and sinus: normal facial exam, sinuses nontender and face symmetric Mouth: oral mucosae normal, lip normal, tongue normal, oropharynx normal and moist mucous membranes Teeth and gingiva: dentition normal Throat: tonsils normal, uvula midline and posterior oropharynx abnormal erythema Eyes General: appearance normal, both eyes and all related structures Neck Neck: normal visual inspection, full ROM and no lymphadenopathy Resp Effort & Inspection: normal respiratory effort, able to speak in complete sentences, cough Quality of cough: productive and no respiratory distress Auscultation: clear to auscultation bilaterally, no rales, no rhonchi and no wheezes Cardio Rate: regular rate Rhythm: regular rhythm Heart Sounds: S1 normal and S2 normal Skin General skin exam: no rashes or lesions noted Neuro General: patient alert and patient awake Cognition: normal cognition Speech: speech normal Gait: normal gait Extrem General: normal to inspection, no pedal edema and no calf tenderness Course Vital Signs Vital signs: Vital Signs Temperature 36.6 C 07/07/24 07:44 Pulse 85 07/07/24 07:44 Respiratory Rate 18 07/07/24 07:44 Blood Pressure 162/99 H 07/07/24 07:44 Temperature 36.5 C 07/07/24 08:00 Temperature Source Oral 07/07/24 08:00 Pulse 79 07/07/24 08:00 Respiratory Rate 20 07/07/24 08:00 Respiratory Effort Normal, Non-Labored 07/07/24 07:57 Respiratory Depth Normal 07/07/24 07:57 Blood Pressure 142/88 H 07/07/24 08:00 Blood Pressure Position Supine 07/07/24 08:00 Pulse Oximetry 94 07/07/24 08:00 Oxygen Delivery Method Room Air 07/07/24 08:00 Oxygen Flow Rate 0 07/07/24 07:44 Pain Level 0 07/07/24 08:00 Medical Decision Making Patient is a pleasant 74-year-old female with complex pulmonary history including asthma, bronchiectasis, Mycobacterium AVM complex, recurrent pneumonia, as well as atrial fibrillation, anticoagulated on Xarelto, presenting today with chief complaint of cough, fever, congestion, sore throat. She reports that the symptoms began about 4 days ago. Concern for recurrent pneumonia. She reports that she had significant fever last night. She has had her flu and COVID vaccines this year. She denies any chest pain but states that her shortness of breath, which she does report she has chronically, has been worsened with recent illness. No lower extremity edema or calf pain per patient. She has not had any changes or missed doses of her medications, including her anticoagulant. She denies any GI upset, denies any nausea, vomiting, diarrhea. Has been having a large amount of sputum, pain states that this can be an issue for her this is also documented by pulmonary. I did review pulmonary notes, patient reports that she has also been followed with infectious disease once. They do note holding on any type of azithromycin treatment because of the potential for MAC resistance. Patient is on Ellipta, is not currently using any type of breakthrough inhalers. Since fairly significant pneumonia was summer, patient has been having monthly CT scans but she reports that they are now starting to space this out further. On exam, patient appears fatigued but not acutely septic. She is hemodynamically stable. Even when having significant coughing fits, she is not developing any hypoxia and has been tainting in the mid to high 90s. She is currently afebrile, unclear when she took her last dose of. She is not tachycardic or hypotensive. She does bring up a large amount of thick sputum and does seem to be fighting to do so which can trigger her gag reflex. Will try and use nasal saline for this. Patient is also using Acapella in the past but is not been using this recently. Have asked RT to help use this device to help improve her ability to bring up sputum. Will obtain chest x-ray. She has had increased shortness of breath and nursing staff did report that she had some wheezing initially, also given nebulizer although no significant wheezing appreciated when I evaluated her. She may benefit, particularly when ill, from her regular inhaler. Will also test for COVID and flu. Holding off on any labs at this time as the patient again, does not appear acutely septic or significantly ill. Hoping that we will be able to discharge her to home with oral antibiotics if appropriate. Patient was negative for flu and COVID. FINDINGS: 2 views: Heart size is normal. The mediastinum is not widened. Bilateral hyperinflation again noted. The previously described infiltrate in the superior segment of the left lower lobe has resolved. No new infiltrates evident. Stable wedge fracture of a midthoracic vertebra is unchanged. No new fractures identified. Some scarring in both lung bases is unchanged. No pleural effusions. No CHF. IMPRESSION: Bilateral hyperinflation. Resolution of previous infiltrate in the superior segment left lower lobe. No new infiltrates nor pleural effusion Reevaluated the patient, she apperas much calmer, coughing less. She was seen by RT, they now note a dry cough. She did have large sputum productio nintially but sounds to have now clearaed this. Will reach out to her pulmonary team. She has Acapella at home and was evaluated by RT to ensure that she is able to use this although the sputum seems to have largely been brought up initially. The nasal saline also sounds to help with the postnasal drip. Consulted quinton Plata who patient sees with pulmonary, she recommended augmentin and prednisone. I discussed this plan with the patient who is in agreement. Encourage hydration and supportive care. Sent home with nasal saline as well as Acapella. She was given her first dressing of Augmentin and prednisone here. I did send her home with today's a second dose of Augmentin as it sounds like she will not be able to slate picker her meds until tomorrow morning otherwise. Strict return precautions were discussed. Encourage close follow-up with primary care. All of her questions and concerns were addressed and she is in agreement this plan. This documentation was generated using [employer] system, please disregard any oddities of phrase or misspellings. Quality:SDOH Health Related Social Needs: No Data to Display PFSH All Active Problems (Updated 01/24/24 @ 00:06 by MAXINE JJ) Elevated blood pressure reading (Acute) Cough (Acute) Chest congestion (Acute) URI (upper respiratory infection) (Acute) COVID-19 (Acute) Bronchiectasis (Acute) Asthma (Chronic) Mycobacterium avium complex (Acute) Dizziness of unknown cause (Acute) Hypertension (Chronic) Dizzy spells (Acute) Peripheral vascular disease (Chronic) Atrial fibrillation (Chronic) Sensorineural hearing loss of both ears (Acute) Uterine prolapse (Acute) Cystocele and rectocele with incomplete uterovaginal prolapse (Acute) Stage IV rectocele. 07/2020 #3 incontinence dish with support . 08/15/2020 76 mm short stem Gellhorn placed. Patient wishes referral to continence c enter at definitive surgery. Lymphadenopathy, inguinal (Acute) left Dupuytren's contracture of both hands (Acute) Status post bilateral partial palmar fasciectomy with involvement of little finger DOS: 07/26/2021 Medical History (Updated 07/07/24 @ 10:49 by ERIKA Gray) Pneumonia Sepsis Discharge planning issues Contraindication to deep vein thrombosis (DVT) prophylaxis Melanoma chest Eustachian tube dysfunction UTI (urinary tract infection) Diarrhea Unspecified injury of head, initial encounter Thrush, oral B12 deficiency Osteoporosis Urinary incontinence Surgical History (Updated 01/24/24 @ 00:06 by MAXINE JJ) Hx of vaginal surgery History of lung biopsy Colonoscopy - MAC (01/28/17) Arthroplasty of knee (12/21/15) RIGHT KNEE W/PARTIAL LATERAL MENISECTOMY AND LIMITED CHONDROPLASTY OF TROCHLEAS AND MESIAL ASCPECT OF MEDIAL FEMORAL CONDYLE/DR. HASKINS Social History (System 10/04/23 @ 14:30 by Alice Payne) Smoking/Tobacco Use Status: Former Tobacco Use Smoking risk assessment performed?: Yes Alcohol Intake: current Alcohol Intake frequency: 0-2 drinks per day Alcohol type: wine Drug use: Never Substance use type: does not use Housing: house Current gender identity: female Do you feel safe at home: Yes Do you feel safe in your relationship?: Yes
[2024-07-07] MEDS: Albuterol/Ipratropium 3 ML UPD VIAL UPD (08:49)
[2024-07-07] MEDS: Sodium Chloride-Nasal SPRAY-ADULT 44 ML BTL NS (08:50)
[2024-07-07] MEDS: Acetaminophen 325 MG TAB 650 MG PO (10:53)
[2024-07-07] MEDS: predniSONE 20 MG TAB 60 MG PO (11:19)
[2024-07-07] MEDS: Amox. 875/Clav. 125, 2 TABS/BTL 1 TAB PO (11:19)
== END 2024-07-07 11:26 | disposition home or self-care (01) ==
PROVIDERS: Emergency Provider Physician Assistant; PCP Family Medicine
DX: J06.9 Acute upper respiratory infection, unspecified (principal); J47.9 Bronchiectasis, uncomplicated; R03.0 Elevated blood-pressure reading, without diagnosis of hypertension; Z79.01 Long term (current) use of anticoagulants
CPT/HCPCS: 87426; 94640; 99285; 71046; 94667; 99284; J3490; J7512; J7620

== ENCOUNTER 2024-07-22 21:53 | Outpatient (REF) | payer MEDICARE, SELFPAY ==
[2024-07-22 21:52] LABS: Abs Immature Grans 0.05 10^3/uL (0.0-0.06); Absolute Basophil Count 0.06 10^3/uL (0.0-0.2); Absolute Eosinophil Count 0.15 10^3/uL (0.0-0.7); Absolute Lymphocyte Count 1.93 10^3/uL (1.2-3.4); Basophils % 0.5 %; Eosinophils % 1.2 %; HGB 14.6 g/dL (11.2-15.7); Immature Grans % 0.4 %; Lymphocytes % 15.9 %; MCH 34.4 pg (27.0-33.0); MCHC 33.2 % (32.0-36.0); MCV 104 fL (80-95); MPV 10.8 fL (8.0-11.0); Monocytes % 11.9 %; Neutrophils % 70.1 %; Platelet Count 334 10^3/uL (130-400); RBC 4.25 10^6/uL (3.93-5.22); RDW 13.9 % (11.7-14.6); RDW-SD 52.9 fL; WBC 12.14 10^3/uL (4.4-10.8)
[2024-07-22 21:53] LABS: Absolute Monocyte Count 1.44 10^3/uL (0.1-0.8); Absolute Neutrophil Count 8.51 10^3/uL (1.2-6.7)
[2024-07-22 22:07] LABS: ALT 22 U/L (14-59); AST 18 U/L (15-37); Albumin 3.3 g/dL (3.4-5.0); Alkaline Phosphatase 51 U/L (46-116); Anion Gap 9.2 mmol/L (3-11); BUN 11 mg/dL (7-18); Bilirubin, Total 0.78 mg/dL (0.2-1.0); CO2 27.8 mmol/L (21.0-32.0); CREATININE 0.8 mg/dL (0.55-1.02); Calcium 9.5 mg/dL (8.5-10.1); Chloride 102 mmol/L (98-107); Estimated GFR 76.79 (mL/min/1.73m2); Glucose 93 mg/dL (74-106); NT-proBNP 1976 pg/mL (<300); Potassium 4.4 mmol/L (3.5-5.1); Sodium 139 mmol/L (136-145)
== END 2024-07-22 21:54 | disposition home or self-care (01) ==
LOC: NCHCN 21:53
PROVIDERS: PCP Family Medicine; Visit Provider Family Medicine
DX: R05.3 Chronic cough (principal)
CPT/HCPCS: 80053; 83880; 85025

== ENCOUNTER 2024-07-29 09:53 | Emergency (ER) | payer MEDICARE, SELFPAY ==
[2024-07-29] VITALS (46 sets, daily range): BP systolic 102–119; BP diastolic 58–93; PULSE 62–147; RESP 15–28; TEMP 36.3–36.6; O2SAT 90–94
--- NOTE | 2024-07-29 09:30 | RT.EKG_ITS ---
APPROVED REPORT Exam: Resting ECG Reason for Exam: Afib Patient Location: E HR:111 bpm ECG Measurements Heart Rate 111 AXIS MA [id number] P [id number] QRSd 93 QRS -17 QT 344 T 4 QTc 469 Conclusion Atrial fibrillation...V-rate 78-143, irreg A-activity
--- NOTE | 2024-07-29 09:45 | DI.RAD_ITS ---
Exam(s) XR CHEST 2V PA LATERAL EXAM: XR CHEST 2V PA LATERAL CLINICAL HISTORY: Weakness. TECHNIQUE: 2D digital imaging was performed. COMPARISON: CR XR CHEST 2V PA LATERAL from 07/07/2024 FINDINGS: 2 views: Heart size is normal. The mediastinum is not widened. Bilateral hyperinflation-COPD changes are again noted. Some scarring in the left lower lobe also aga in noted. No new infiltrates nor pleural effusions. There is a healed fracture of left 6 rib again noted IMPRESSION: COPD. No acute pulmonary findings. DATA REPOSITORY: RADIATION DOSE DELIVERED:
--- NOTE | 2024-07-29 09:45 | DI.CT_ITS ---
Exam(s) CT HEAD WO EXAM: CT HEAD WO CLINICAL HISTORY: Fall, On anti-coags. TECHNIQUE: Imaging Protocol: Axial computed tomography images with coronal and sagittal reformatted images were created and reviewed COMPARISON: CT CT BRAIN NECK CTA from 01/07/2024 FINDINGS: There are no skull fractures. There is no fluid in the visualized paranasal sinuses. There is no evidence of intracranial hemorrhage, mass effect, or shift of midline structures. There are no extra-axial fluid collections. The ventricles are not enlarged or shifted and there is no blo od within the ventricular system nor within the basal cisterns. Evidence of previous cataract surgery in the left are but IMPRESSION: No acute intracranial findings on this noninfused CT scan of the brain. Report called by myself to ER provider 07/29/2024 at 11:16 a.m. RADIATION DOSE DELIVERED: 888.25mGy.cm Total DLP DATA REPOSITORY: All CT scans at this facility are submitted to the National Radiology Data Registry (NRDR) Dose Index Registry (DIR) with the [employer] (A[employer]). RADIATION OPTIMIZATION: All CT scans at this facility use at least one of these dose optimization te chniques: automated exposure control; mA and/or kV adjustment per patient size (includes targeted exa ms where dose is matched to clinical indication); or iterative reconstruction.
--- NOTE | 2024-07-29 10:00 | ED.GENADUL_ITS ---
Discharge Plan Disposition Patient Disposition: Home Condition: Stable Discharge Details Clinical Impression: Acute hypokalemia, Hypomagnesemia Primary Care Provider: Yahaira Araiza ED Provider: Navya Rodriguez Home Meds and New Rx's Prescriptions: New promethazine-DM 6.25-15 mg/5 mL syrup 5 ml PO QHS PRN (Reason: cough) 7 Days Qty: 118 0RF Rx Instructions: Take 1 teaspoon by mouth at bedtime as needed for cough benzonatate 100 mg capsule 100 mg PO BID-TID PRN (Reason: cough) Qty: 10 0RF Rx Instructions: Take 1 capsule 2-3 times daily as needed for cough Continued sotalol 120 mg tablet 120 mg PO BID Arnuity Ellipta 200 mcg/actuation blister with device 1 inh inhalation DAILY cyanocobalamin (vitamin B-12) 1,000 mcg capsule 1,000 mcg PO DAILY atorvastatin 40 mg tablet 40 mg PO DAILY PreserVision AREDS 4,296 mcg-226 mg-90 mg capsule 1 cap PO BID multivitamin [Multi-Day] 1 EACH tablet 1 ea PO DAILY calcium carbonate-vitamin D3 1 EACH tablet 1 ea PO BID alprazolam 0.5 MG tablet 0.5 mg PO PRN PRN zolpidem 10 MG tablet 5 mg PO HS PRN PRN Xarelto 20 mg tablet 20 mg PO DAILY Prolia 60 mg/mL syringe 60 mg SUBCUT [id number] Patient Comments: next shot december 2024 Rx Instructions: Next shot in Dec, 2024 diltiazem HCl 120 mg capsule,extended release 24hr 120 mg PO DAILY Patient Comments: TAKE ONE CAPSULE BY MOUTH EVERY DAY acetaminophen 500 mg tablet 500 mg PO Q6H PRN PRN (Reason: pain) Qty: 40 3RF prednisone 50 mg tablet 50 mg PO DAILY Qty: 4 0RF furosemide 40 mg tablet 40 mg PO ONCE Patient Comments: TAKE ONE TABLET BY MOUTH EVERY MORNING FOR HEART FAILURE levalbuterol tartrate 45 mcg/actuation HFA aerosol inhaler 2 puff inhalation Q4H Patient Comments: Increased yesterday to up to 6 times a day Discharge Instructions Instructions: Hypokalemia, High Potassium Diet, Hypomagnesemia Additional Instructions: Potassium was low at 2.7 today, magnesium was also low at 1.4. These were replaced. Please continue your previously prescribed medications. Please discuss these results with your primary care provider. Increase potassium intake in your diet. Chest x-ray shows no pneumonia or fluid in your lungs no enlarged heart, you were given your normal dose of diltiazem 120 mg today and 40 mg of furosemide. A prescription for some cough syrup for nighttime and Tessalon Perles was sent to the pharmacy on file for you. Follow up with primary care provider in 3-5 days. Return to ED sooner if any worsening weakness, shortness of breath, falls, nausea vomiting diarrhea, chest pain or concerns. Thank you for allowing us to care for you today. Referrals: Yahaira Araiza [Primary Care Provider] - 3 days HPI General Mode of arrival: EMS . Date/Time Provider Initiated Documentation: 07/29/24 09:59 . Limitations to Documentation: no limitations . Information obtained by: patient, EMS, RN notes reviewed and old records reviewed . HPI Narrative: 74-year-old female presents to the ER via EMS with chief complaint of increased weakness, A-fib with RVR, and a fall last night. Patient states that she rolled out of bed. Unsure if she hit her head. She does take Xarelto, she also notes productive cough with thick white sputum. She does have a history of atrial fibrillation, recently diagnosed with congestive heart failure and placed on Lasix which patient states that does not really make her urinate more. She reports cough over the last week with increased sputum production. She is c/o g eneralized weakness. In the house just per EMS heart rate prior to arrival was in the 140s. History of pneumonia, sepsis, melanoma, UTI, osteoporosis, lung biopsy, asthma hypertension. Related Data Home Medications ?Medication ?Instructions ?Recorded ?Confirmed alprazolam 0.5 mg tablet 0.5 mg PO PRN PRN 12/13/15 07/29/24 calcium 600 mg (as 1 ea PO BID 12/13/15 07/29/24 carbonate)-vitamin D3 5 mcg (200 unit) tablet multivitamin (Multi-Day tablet) 1 ea PO DAILY 12/13/15 07/29/24 zolpidem 10 mg tablet 5 mg PO HS PRN PRN 12/13/15 07/29/24 rivaroxaban 20 mg tablet (Xarelto) 20 mg PO DAILY 06/26/20 07/29/24 acetaminophen 500 mg tablet 500 mg PO Q6H PRN PRN pain #40 tabs 07/26/21 07/29/24 atorvastatin 40 mg tablet 40 mg PO DAILY 08/06/23 07/29/24 vitamins A,C,U-inot-oaerlb 4,296 1 cap PO BID 08/06/23 07/29/24 mcg-226 mg-90 mg capsule (PreserVision AREDS) fluticasone furoate 200 1 inh inhalation DAILY 01/09/24 07/29/24 mcg/actuation blister powder for inhalation (Arnuity Ellipta) sotalol 120 mg tablet 120 mg PO BID 01/09/24 07/29/24 diltiazem HCl 120 mg 120 mg PO DAILY 01/22/24 07/29/24 capsule,extended release 24 hr denosumab 60 mg/mL subcutaneous 60 mg subcut [id number] 01/31/24 07/29/24 syringe (Prolia) cyanocobalamin (vitamin B-12) 1,000 mcg PO DAILY 04/30/24 07/29/24 1,000 mcg capsule prednisone 50 mg tablet 50 mg PO DAILY #4 tabs 07/07/24 07/29/24 benzonatate 100 mg capsule 100 mg PO BID-TID PRN cough #10 07/29/24 caps furosemide 40 mg tablet 40 mg PO ONCE 07/29/24 07/29/24 levalbuterol tartrate 45 2 puff inhalation Q4H 07/29/24 07/29/24 mcg/actuation aerosol inhaler promethazine-DM 6.25 mg-15 mg/5 mL 5 ml PO QHS PRN cough 7 days #118 07/29/24 oral syrup mL Previous Rx's ?Medication ?Instructions ?Recorded acetaminophen 500 mg tablet 500 mg PO Q6H PRN PRN pain #40 tabs 07/26/21 prednisone 50 mg tablet 50 mg PO DAILY #4 tabs 07/07/24 benzonatate 100 mg capsule 100 mg PO BID-TID PRN cough #10 07/29/24 caps promethazine-DM 6.25 mg-15 mg/5 mL 5 ml PO QHS PRN cough 7 days #118 07/29/24 oral syrup mL Allergies Allergy/AdvReac Type Severity Reaction Status Date / Time ibandronate sodium (From AdvReac heartburn Unverified 07/29/24 10:21 Boniva) General ISRA: 3 Review of Systems All systems reviewed & are unremarkable except as noted in HPI and below Constitutional Constitutional: Reports as per HPI and Reports weakness Eyes Eyes: Denies loss of vision Respiratory Respiratory: Reports change in phlegm color, Reports chest congestion, Reports cough and Reports excessive phlegm production Neurologic Neurologic: Denies confusion, Denies loss of vision, Denies memory loss and Reports weakness Psychiatric Psychiatric: Denies confusion and Denies memory loss Exam Narrative Exam Narrative: Constitutional: Alert and oriented x3. Appears stated age. Thin body habitus. Head: Normocephalic, no trauma. Eyes: Pupils PERRL, Red reflex noted, EOM's intact. Eyelids symmetrical without lesions, discharge, or swelling. ENT: Bilateral TM's WNL, External ear normal to inspection, no mastoid TTP, swelling, or erythema, Nasal turbinates WNL, no nasal discharge. Normal dentition, Posterior pharynx WNL, no exudate. Chest: Irregular rate in the 1 20-1 30s upon arrival,, Normal S1, S2, distal pulses intact. Resp: Lungs diminished to auscultation bilaterally, no wheezes, rales, or rhonchi. Abdomen: Soft, non-distended, Normoactive bowel sounds all 4 quads. Musculoskeletal: Normal gait, Moves all 4 extremities without difficulty. Skin: No suspicious rashes or lesions. Capillary refill less than 2 sec. Neurologic: Cranial nerves II-XII intact. Alert and oriented x 3. Motor: No deficits noted. Sensory: Intact bilaterally all 4 extremities. Hematologic/Lymphatic: No ecchymosis, no lymphadenopathy. Medical Decision Making 74-year-old female presents to the ER via EMS with chief complaint of increased weakness, A-fib with RVR, and a fall last night. Patient states that she rolled out of bed. Unsure if she hit her head. She does take Xarelto, she also notes productive cough with thick white sputum. She does have a history of atrial fibrillation, recently diagnosed with congestive heart failure and placed on Lasix which patient states that does not really make her urinate more. She reports cough over the last week with increased sputum production. She is c/o generalized weakness. In the house just per EMS heart rate prior to arrival was in the 140s. History of pneumonia, sepsis, melanoma, UTI, osteoporosis, lung biopsy, asthma hypertension. Workup ordered including CBC, CMP, troponins, proBNP, lactate, Pro-Nito, urinalysis, chest x-ray and head CT. EKG was reviewed by Dr. Núñez and myself ER attending, old EKG available for review. No ischemic changes. Patient is in atrial fibrillation. Please see official report. Head CT within normal limits. Critical lab value received magnesium 1.4 and potassium 2.7. Will give a gram of magnesium IV piggyback, 40 mill equivalents of potassium p.o. and 10 mill equivalents IV potassium. Initial troponin within normal limits, CBC shows white blood cell count of 12.09 neutrophils 8.03 monocytes 1.39 lactate 1.6 calcium slightly low at 7.8 proBNP is 1636. This is down from approx 1900 on 07/22/2024. Chest x-ray shows no new changes. No new infiltrates or pleural effusions. Does have COPD chronic changes. On patient reevaluation she reports she is feeling much better she is sitting up in bed eating. Questions by the patient and her family were answered to the best my ability. They do have questions about continuing with her furosemide I did tell her to continue this but follow-up with her primary care regarding adjusting dosages or medication management due to her low potassium. She verbalizes understanding. Patient's biggest concern is not able to sleep due to the coughing. Will send with Tessalon Perles and some Phenergan DM cough syrup for bedtime. Urinalysis within normal limits no evidence of UTI. Patient to be discharged home with family. Medical Records Medical records reviewed: Yes I reviewed the patient's medical records. Imaging Data Radiologic Study: Imaging: CT Scan Radiologist's impression: EXAM: CT HEAD WO CLINICAL HISTORY: Fall, On anti-coags. TECHNIQUE: Imaging Protocol: Axial computed tomography images with coronal and sagittal reformatted images were created and reviewed COMPARISON: CT CT BRAIN NECK CTA from 01/07/2024 FINDINGS: There are no skull fractures. There is no fluid in the visualized paranasal sinuses. There is no evidence of intracranial hemorrhage, mass effect, or shift of midline structures. There are no extra-axial fluid collections. The ventricles are not enlarged or shifted and there is no blood within the ventricular system nor within the basal cisterns. Evidence of previous cataract surgery in the left are but IMPRESSION: No acute intracranial findings on this noninfused CT scan of the brain. Radiologic Study #2: Imaging: X-Ray Radiologist's impression: EXAM: XR CHEST 2V PA LATERAL CLINICAL HISTORY: Weakness. TECHNIQUE: 2D digital imaging was performed. COMPARISON: CR XR CHEST 2V PA LATERAL from 07/07/2024 FINDINGS: 2 views: Heart size is normal. The mediastinum is not widened. Bilateral hyperinflation-COPD changes are again noted. Some scarring in the left lower lobe also again noted. No new infiltrates nor pleural effusions. There is a healed fracture of left 6 rib again noted Lab Data Lab results reviewed: Yes I reviewed the patient's lab results. Labs: Laboratory Tests Range/Units 07/29/24 07/29/24 07/29/24 10:18 10:50 12:10 WBC (4.4-10.8) 10^3/uL 12.09 H RBC (3.93-5.22) 10^6/uL 4.16 Hgb (11.2-15.7) g/dL 14.1 Hct (36.0-46.0) % 42.0 MCV (80-95) fL 101 H MCH (27.0-33.0) pg 33.9 H MCHC (32.0-36.0) % 33.6 RDW (11.7-14.6) % 13.0 Plt Count (130-400) 10^3/uL 331 MPV (8.0-11.0) fL 9.3 Immature Gran % % 0.5 Neutrophils % % 66.4 Lymphocytes % % 19.9 Monocytes % % 11.5 Eosinophils % % 1.1 Basophils % % 0.6 Nucleated RBC % (0.0-0.3) % 0.0 Absolute Neutrophils (1.2-6.7) 10^3/uL 8.03 H Absolute Lymphocytes (1.2-3.4) 10^3/uL 2.41 Absolute Monocytes (0.1-0.8) 10^3/uL 1.39 H Absolute Eosinophils (0.0-0.7) 10^3/uL 0.13 Absolute Basophils (0.0-0.2) 10^3/uL 0.07 PT Cancelled 12.1 H INR Cancelled 1.2 H APTT Cancelled 30.3 VBG Lactate (0.6-1.4) mmol/L 1.6 H Sodium (136-145) mmol/L 139 Potassium (3.5-5.1) mmol/L 2.7 L* Chloride (98-107) mmol/L 102 Carbon Dioxide (21.0-32.0) mmol/L 26.0 Anion Gap (3-11) mmol/L 11.0 BUN (7-18) mg/dL 12 Creatinine (0.55-1.02) mg/dL 0.7 Est GFR (CKD-EPI 2020) (mL/min/1.73m2) 90.14 Glucose (74-106) mg/dL 90 Calcium (8.5-10.1) mg/dL 7.8 L Magnesium (1.8-2.4) mg/dL 1.4 L Total Bilirubin (0.2-1.0) mg/dL 0.56 AST (15-37) U/L 18 ALT (14-59) U/L 18 Alkaline Phosphatase (46-116) U/L 43 L Troponin I (<or=51) ng/L < 4 NT-Pro-B Natriuret Pep (<300) pg/mL 1636 H Total Protein (6.4-8.2) g/dL 6.7 Albumin (3.4-5.0) g/dL 2.6 L Procalcitonin ng/mL < 0.10 COVID-19 Source Nasopharynx SARS-CoV-2 (PCR) (Negative) Negative Influenza Type A (PCR) (Negative) Negative Influenza Type B (PCR) (Negative) Negative RSV (PCR) (Negative) Negative Range/Units 07/29/24 07/29/24 07/29/24 12:20 12:59 13:37 WBC (4.4-10.8) 10^3/uL RBC (3.93-5.22) 10^6/uL Hgb (11.2-15.7) g/dL Hct (36.0-46.0) % MCV (80-95) fL MCH (27.0-33.0) pg MCHC (32.0-36.0) % RDW (11.7-14.6) % Plt Count (130-400) 10^3/uL MPV (8.0-11.0) fL Immature Gran % % Neutrophils % % Lymphocytes % % Monocytes % % Eosinophils % % Basophils % % Nucleated RBC % (0.0-0.3) % Absolute Neutrophils (1.2-6.7) 10^3/uL Absolute Lymphocytes (1.2-3.4) 10^3/uL Absolute Monocytes (0.1-0.8) 10^3/uL Absolute Eosinophils (0.0-0.7) 10^3/uL Absolute Basophils (0.0-0.2) 10^3/uL PT INR APTT VBG Lactate (0.6-1.4) mmol/L Sodium (136-145) mmol/L 135 L Potassium (3.5-5.1) mmol/L 4.2 D Chloride (98-107) mmol/L 97 L Carbon Dioxide (21.0-32.0) mmol/L 29.3 Anion Gap (3-11) mmol/L 8.7 BUN (7-18) mg/dL 13 Creatinine (0.55-1.02) mg/dL 0.7 Est GFR (CKD-EPI 2020) (mL/min/1.73m2) 90.14 Glucose (74-106) mg/dL 94 Calcium (8.5-10.1) mg/dL 9.4 Magnesium (1.8-2.4) mg/dL Total Bilirubin (0.2-1.0) mg/dL AST (15-37) U/L ALT (14-59) U/L Alkaline Phosphatase (46-116) U/L Troponin I (<or=51) ng/L 4 Cancelled NT-Pro-B Natriuret Pep (<300) pg/mL Total Protein (6.4-8.2) g/dL Albumin (3.4-5.0) g/dL Procalcitonin ng/mL COVID-19 Source SARS-CoV-2 (PCR) (Negative) Influenza Type A (PCR) (Negative) Influenza Type B (PCR) (Negative) RSV (PCR) (Negative) Quality:SDOH Health Related Social Needs: No Data to Display PFSH All Active Problems Hypomagnesemia (Acute) Acute hypokalemia (Acute) Elevated blood pressure reading (Acute) Cough (Acute) Chest congestion (Acute) URI (upper respiratory infection) (Acute) COVID-19 (Acute) Bronchiectasis (Acute) Asthma (Chronic) Mycobacterium avium complex (Acute) Dizziness of unknown cause (Acute) Hypertension (Chronic) Dizzy spells (Acute) Peripheral vascular disease (Chronic) Atrial fibrillation (Chronic) Sensorineural hearing loss of both ears (Acute) Uterine prolapse (Acute) Cystocele and rectocele with incomplete uterovaginal prolapse (Acute) Stage IV rectocele. 07/2020 #3 incontinence dish with support . 08/15/2020 76 mm short stem Gellhorn placed. Patient wishes referral to continence center at definitive surgery. Lymphadenopathy, inguinal (Acute) left Dupuytren's contracture of both hands (Acute) Status post bilateral partial palmar fasciectomy with involvement of little finger DOS: 07/26/2021 Medical History Pneumonia Sepsis Discharge planning issues Contraindication to deep vein thrombosis (DVT) prophylaxis Melanoma chest Eustachian tube dysfunction UTI (urinary tract infection) Diarrhea Unspecified injury of head, initial encounter Thrush, oral B12 deficiency Osteoporosis Urinary incontinence Surgical History Hx of vaginal surgery History of lung biopsy Colonoscopy - MAC (01/28/17) Arthroplasty of knee (12/21/15) RIGHT KNEE W/PARTIAL LATERAL MENISECTOMY AND LIMITED CHONDROPLASTY OF TROCHLEAS AND MESIAL ASCPECT OF MEDIAL FEMORAL CONDYLE/DR. HASKINS Social History Smoking/Tobacco Use Status: Former Tobacco Use Smoking risk assessment performed?: Yes Alcohol Intake: current Alcohol Intake frequency: 0-2 drinks per day Alcohol type: wine Drug use: Never Substance use type: does not use Housing: house Current gender identity: female Do you feel safe at home: Yes Do you feel safe in your relationship?: Yes
[2024-07-29 10:27] LABS: Abs Immature Grans 0.06 10^3/uL (0.0-0.06); Absolute Basophil Count 0.07 10^3/uL (0.0-0.2); Absolute Eosinophil Count 0.13 10^3/uL (0.0-0.7); Absolute Lymphocyte Count 2.41 10^3/uL (1.2-3.4); Absolute Monocyte Count 1.39 10^3/uL (0.1-0.8); Absolute Neutrophil Count 8.03 10^3/uL (1.2-6.7); Basophils % 0.6 %; Eosinophils % 1.1 %; HGB 14.1 g/dL (11.2-15.7); Immature Grans % 0.5 %; Lymphocytes % 19.9 %; MCH 33.9 pg (27.0-33.0); MCHC 33.6 % (32.0-36.0); MCV 101 fL (80-95); MPV 9.3 fL (8.0-11.0); Monocytes % 11.5 %; Neutrophils % 66.4 %; Platelet Count 331 10^3/uL (130-400); RBC 4.16 10^6/uL (3.93-5.22); RDW-SD 48.1 fL; WBC 12.09 10^3/uL (4.4-10.8)
[2024-07-29 10:28] LABS: Lactate 1.6 mmol/L (0.6-1.4)
[2024-07-29] MEDS: dilTIAZem CD 120 MG CAPCR PO (10:44)
[2024-07-29 10:58] LABS: ALT 18 U/L (14-59); AST 18 U/L (15-37); Albumin 2.6 g/dL (3.4-5.0); Alkaline Phosphatase 43 U/L (46-116); BUN 12 mg/dL (7-18); Bilirubin, Total 0.56 mg/dL (0.2-1.0); CREATININE 0.7 mg/dL (0.55-1.02); Calcium 7.8 mg/dL (8.5-10.1); Chloride 102 mmol/L (98-107); Estimated GFR 90.14 (mL/min/1.73m2); Glucose 90 mg/dL (74-106); Magnesium 1.4 mg/dL (1.8-2.4); NT-proBNP 1636 pg/mL (<300); Sodium 139 mmol/L (136-145); Total Protein 6.7 g/dL (6.4-8.2)
[2024-07-29 10:59] LABS: Troponin I < 4 ng/L (<or=51)
[2024-07-29 11:00] LABS: Potassium 2.7 mmol/L (3.5-5.1)
[2024-07-29 11:19] LABS: INR 1.2 (0.9-1.1); PTT Activated 30.3 sec (23.6-32.8); Prothrombin Time 12.1 sec (9.1-11.1)
[2024-07-29] MEDS: Potassium Chloride Liquid 20 MEQ PKT 40 MEQ PO (11:27)
[2024-07-29] MEDS: MAGNESIUM SULFATE 1 GM/100 ML BAG IV_INF (11:27)
[2024-07-29] MEDS: POTASSIUM CHLORIDE 10 MEQ/100 ML BAG 100 MEQ IV_INF (11:28)
[2024-07-29 11:39] LABS: Procalcitonin < 0.10 ng/mL
[2024-07-29] MEDS: Normal Saline 500 ML 250 ML IV (12:04)
[2024-07-29 12:47] LABS: Troponin I 4 ng/L (<or=51)
[2024-07-29 13:05] LABS: COVID-19 PCR Negative (Negative); Influenza A PCR Negative (Negative); Influenza B PCR Negative (Negative); RSV PCR Negative (Negative)
[2024-07-29 13:06] LABS: Source Nasopharynx
[2024-07-29] MEDS: Furosemide 20 MG TAB 40 MG PO (13:07)
[2024-07-29] MEDS: Benzonatate 100 MG CAP PO (13:07)
[2024-07-29 13:56] LABS: Anion Gap 8.7 mmol/L (3-11); BUN 13 mg/dL (7-18); CO2 29.3 mmol/L (21.0-32.0); CREATININE 0.7 mg/dL (0.55-1.02); Calcium 9.4 mg/dL (8.5-10.1); Chloride 97 mmol/L (98-107); Estimated GFR 90.14 (mL/min/1.73m2); Glucose 94 mg/dL (74-106); Potassium 4.2 mmol/L (3.5-5.1); Sodium 135 mmol/L (136-145)
[2024-07-29 14:37] LABS: Bilirubin Negative (Negative); Blood Negative (Negative); Clarity Clear (Clear); Glucose Negative (Negative); Ketones Negative (Negative); Leukocyte Esterase Negative (Negative); Nitrite Negative (Negative); Urobilinogen 0.2 mg/dL (Up to 0.2)
== END 2024-07-29 16:06 | disposition home or self-care (01) ==
PROVIDERS: Emergency Provider Registered Nurse Emergency; PCP Family Medicine
DX: R53.1 Weakness (principal); E87.6 Hypokalemia; E83.42 Hypomagnesemia; I50.9 Heart failure, unspecified; I48.91 Unspecified atrial fibrillation; Z79.01 Long term (current) use of anticoagulants; Z87.891 Personal history of nicotine dependence
CPT/HCPCS: 36415; 80048; 80053; 84145; 87637; 93005; 96361; 96365; 96368; 99285; 70450; 71046; 81003; 83605; 83735; 83880; 84484; 85025; 85610; 85730; 93010; J3475; J3480

== ENCOUNTER 2024-08-03 18:46 | Outpatient (REF) | payer MEDICARE, SELFPAY ==
[2024-08-03 22:05] LABS: ALT 19 U/L (14-59); AST 31 U/L (15-37); Albumin 2.9 g/dL (3.4-5.0); Alkaline Phosphatase 51 U/L (46-116); Anion Gap 5.9 mmol/L (3-11); BUN 10 mg/dL (7-18); Bilirubin, Total 0.32 mg/dL (0.2-1.0); CO2 30.1 mmol/L (21.0-32.0); CREATININE 0.8 mg/dL (0.55-1.02); Calcium 9.9 mg/dL (8.5-10.1); Chloride 96 mmol/L (98-107); Estimated GFR 76.79 (mL/min/1.73m2); Glucose 103 mg/dL (74-106); Magnesium 1.8 mg/dL (1.8-2.4); Potassium 4.2 mmol/L (3.5-5.1); Sodium 132 mmol/L (136-145); Total Protein 7.5 g/dL (6.4-8.2)
[2024-08-03 22:48] LABS: NT-proBNP 524 pg/mL (<300)
== END 2024-08-03 18:47 | disposition home or self-care (01) ==
LOC: NCHCN 18:46
PROVIDERS: PCP Family Medicine; Visit Provider Family Medicine
DX: R42 Dizziness and giddiness (principal)
CPT/HCPCS: 80053; 83735; 83880

== ENCOUNTER 2024-08-10 09:59 | Emergency (ER) | payer MEDICARE, SELFPAY ==
[2024-08-10] VITALS (82 sets, daily range): BP systolic 87–195; BP diastolic 60–170; PULSE 54–184; RESP 14–35; TEMP 36.9–37; O2SAT 81–99
--- NOTE | 2024-08-10 10:00 | RT.EKG_ITS ---
APPROVED REPORT Exam: Resting ECG Reason for Exam: rapid afib w/RVR Patient Location: E HR:177 bpm ECG Measurements Heart Rate 177 AXIS ND 153 P 268 QRSd 80 QRS -67 QT 299 T -78 QTc 513 Conclusion Atrial flutter with rate [address] depression Compared to priors, A flutter has replaced A-fib
--- NOTE | 2024-08-10 10:18 | ED.GENADUL_ITS ---
Discharge Plan Disposition Patient Disposition: Home Condition: Stable Discharge Details Clinical Impression: Atrial fibrillation with RVR, Supraventricular tachycardia, unspecified Primary Care Provider: Yahaira Araiza ED Provider: Jacques Hickman Home Meds and New Rx's Prescriptions: Continued sotalol 120 mg tablet 120 mg PO BID Arnuity Ellipta 200 mcg/actuation blister with device 1 inh inhalation DAILY cyanocobalamin (vitamin B-12) 1,000 mcg capsule 1,000 mcg PO DAILY atorvastatin 40 mg tablet 40 mg PO DAILY PreserVision AREDS 4,296 mcg-226 mg-90 mg capsule 1 cap PO BID multivitamin [Multi-Day] 1 EACH tablet 1 ea PO DAILY calcium carbonate-vitamin D3 1 EACH tablet 1 ea PO BID alprazolam 0.5 MG tablet 0.5 mg PO PRN PRN zolpidem 10 MG tablet 5 mg PO HS PRN PRN Xarelto 20 mg tablet 20 mg PO DAILY Prolia 60 mg/mL syringe 60 mg SUBCUT [id number] Patient Comments: next shot december 2024 Rx Instructions: Next shot in Dec, 2024 diltiazem HCl 120 mg capsule,extended release 24hr 120 mg PO DAILY Patient Comments: TAKE ONE CAPSULE BY MOUTH EVERY DAY valacyclovir 1 gram tablet 1,000 mg PO TID Patient Comments: TAKE ONE TABLET BY MOUTH THREE TIMES A DAY acetaminophen 500 mg tablet 500 mg PO Q6H PRN PRN (Reason: pain) Qty: 40 3RF prednisone 50 mg tablet 50 mg PO DAILY Qty: 4 0RF furosemide 40 mg tablet 40 mg PO ONCE Patient Comments: TAKE ONE TABLET BY MOUTH EVERY MORNING FOR HEART FAILURE levalbuterol tartrate 45 mcg/actuation HFA aerosol inhaler 2 puff inhalation Q4H Patient Comments: Increased yesterday to up to 6 times a day benzonatate 100 mg capsule 100 mg PO BID-TID PRN (Reason: cough) Qty: 10 0RF Rx Instructions: Take 1 capsule 2-3 times daily as needed for cough Discharge Instructions Instructions: Cardioversion, Paroxysmal Supraventricular Tachycardia (DC), Atrial Fibrillation and Atrial Flutter ED Additional Instructions: You were seen in the emergency department for your supraventricular tachycardia superimposed on atrial flutter with rapid ventricular response. We attempted Valsalva maneuvers which were unsuccessful, we did attempt 1 dose of IV adenosine to cure your SVT which was unsuccessful so he reverted to electric synchronized cardioversion. This is usually definitive procedure and you should remain in your baseline rhythm post procedure. Please continue all your medications, call your cardiology office and let them know that you have received a cardioversion and they may want to see you in the short-term. Please return to the emergency department for any tacky arrhythmias, chest pain, fever, cough, respiratory distress, near syncope or dizziness or any other emergent concerns, incidentally you did have a mild elevation of lipase which is a pancreatic enzyme but not to a point of a pancreatitis. Referrals: Yahaira Araiza [Primary Care Provider] - Discharge Data Discharge Date/Time-TO BE ENTERED AT DEPARTURE: 08/10/24 14:57 HPI <ERIKA Villeda - Last Filed: 08/12/24 10:56> General Date/Time Provider Initiated Documentation: 08/10/24 10:13 . HPI Narrative: 74 year-old female presents to ED today by POV/ambulating with a chief complaint of tachycardia since last night, took a xanax and went to bed. Quality described as no chest pain, endorses feeling her heart racing- recent change to her AF meds including discontinuation of sotalol, no radiation to cough, fever, weakness, syncope, chest pain, nausea/vomiting, abdominal pain. Severity is described as 0-1/10. Palliating factors include nothing specific attempted. Provoking factors include nothing specific. Events leading up to the incident/Associated Symptoms: Patient has longstanding atrial fibrillation. Patient is anticoagulated. Related Data Home Medications ?Medication ?Instructions ?Recorded ?Confirmed alprazolam 0.5 mg tablet 0.5 mg PO PRN PRN 12/13/15 08/10/24 calcium 600 mg (as 1 ea PO BID 12/13/15 08/10/24 carbonate)-vitamin D3 5 mcg (200 unit) tablet multivitamin (Multi-Day tablet) 1 ea PO DAILY 12/13/15 08/10/24 zolpidem 10 mg tablet 5 mg PO HS PRN PRN 12/13/15 08/10/24 rivaroxaban 20 mg tablet (Xarelto) 20 mg PO DAILY 06/26/20 08/10/24 acetaminophen 500 mg tablet 500 mg PO Q6H PRN PRN pain #40 tabs 07/26/21 08/10/24 atorvastatin 40 mg tablet 40 mg PO DAILY 08/06/23 08/10/24 vitamins A,C,K-[id number] 4,296 1 cap PO BID 08/06/23 08/10/24 mcg-226 mg-90 mg capsule (PreserVision AREDS) fluticasone furoate 200 1 inh inhalation DAILY 01/09/24 08/10/24 mcg/actuation blister powder for inhalation (Arnuity Ellipta) sotalol 120 mg tablet 120 mg PO BID 01/09/24 08/10/24 diltiazem HCl 120 mg 120 mg PO DAILY 01/22/24 08/10/24 capsule,extended release 24 hr denosumab 60 mg/mL subcutaneous 60 mg subcut [id number] 01/31/24 08/10/24 syringe (Prolia) cyanocobalamin (vitamin B-12) 1,000 mcg PO DAILY 04/30/24 08/10/24 1,000 mcg capsule prednisone 50 mg tablet 50 mg PO DAILY #4 tabs 07/07/24 08/10/24 benzonatate 100 mg capsule 100 mg PO BID-TID PRN cough #10 07/29/24 08/10/24 caps furosemide 40 mg tablet 40 mg PO ONCE 07/29/24 08/10/24 levalbuterol tartrate 45 2 puff inhalation Q4H 07/29/24 08/10/24 mcg/actuation aerosol inhaler valacyclovir 1 gram tablet 1,000 mg PO TID 08/10/24 08/10/24 Previous Rx's ?Medication ?Instructions ?Recorded acetaminophen 500 mg tablet 500 mg PO Q6H PRN PRN pain #40 tabs 07/26/21 prednisone 50 mg tablet 50 mg PO DAILY #4 tabs 07/07/24 benzonatate 100 mg capsule 100 mg PO BID-TID PRN cough #10 07/29/24 caps Allergies Allergy/AdvReac Type Severity Reaction Status Date / Time ibandronate sodium (From AdvReac heartburn Unverified 08/10/24 10:14 Tyrel) General Stated Complaint: Palpitatns ISRA: 2 Review of Systems <ERIKA Villeda - Last Filed: 08/12/24 10:56> All systems reviewed & are unremarkable except as noted in HPI and below Exam <ERIKA Villeda - Last Filed: 08/12/24 10:56> Narrative Exam Narrative: GENERAL APPEARANCE: Well-nourished, non-toxic, awake and alert, atraumatic, no acute distress. SKIN: Warm, pink, dry, intact, without rashes/lesions/ulcerations. HEAD: Normocephalic, atraumatic, normal hair distribution for gender/age. EYES: Normal conjunctiva, no exudates on lids/lashes. ENT: Nares patent, no circumoral cyanosis, no facial swelling NECK: Supple, trachea midline, painless cervical ROM. LUNGS/CHEST: Lungs CTA bilaterally- no rhonchi/rales/wheezes diffusely, non- labored respirations, normal A/P diameter, symmetrical expansion, no chest wall deformity HEART (CV/PV): Irregular rate- tachy in the 160s-170s, SVT on monitor, and rhythm without murmur, no peripheral edema, no JVD. ABDOMEN: Soft, non-distended, no guarding, no tenderness. MSK: Normal ROM, no swelling/deformity to bilateral UEs or LEs, moving all extremities without weakness, no cyanosis, spine midline without tenderness, normal curvature. NEURO: Mental Status AAOx4 - alert to person, place, time, events No facial droop, no forehead involvement. Motor: No focal weakness - strength 5/5 in bilateral UEs and LEs, proximal and distal, symmetric. Sensory: sensation intact to light touch globally. Gait normal: patient ambulated without ataxia into ED room. PSYCH: euthymic, cooperative, pleasant, appropriate speech Course <ERIKA Villeda - Last Filed: 08/12/24 10:56> Vital Signs Vital signs: Vital Signs Temperature 36.9 C 08/10/24 10:05 Pulse 178 H 08/10/24 10:05 Respiratory Rate 15 08/10/24 10:05 Blood Pressure 158/104 H 08/10/24 10:05 Pulse Oximetry 96 08/10/24 10:05 Temperature 36.9 C 08/10/24 10:05 Pulse 178 H 08/10/24 10:05 Respiratory Rate 15 08/10/24 10:05 Blood Pressure 158/104 H 08/10/24 10:05 Blood Pressure Position Sitting 08/10/24 10:05 Pulse Oximetry 96 08/10/24 10:05 Oxygen Delivery Method Room Air 08/10/24 10:05 Oxygen Flow Rate 0 08/10/24 10:05 Procedures <ERIKA Villeda - Last Filed: 08/12/24 10:56> Other Description: Synchronized cardioversion was performed at 200 J for atrial fibrillation with rapid ventricular response with superimposed SVT after 2 failed Valsalva maneuvers and 1 dose of 6 mg adenosine were attempted. A timeout was performed which confirmed patient and date of , the patient remained asymptomatic of chest pain both pre and post procedure, has been anticoagulated long-term and has received synchronized cardioversion in the past. Respiratory, myself, nursing staff and attending Dr. Wallace were at bedside during procedure, the patient was consciously sedated with [address] Wallace, please see her complete procedure note. The patient tolerated the sedative well and was cardioverted with 200 J of electricity with quick return to her baseline rate controlled A-fib. The patient required no intubation or significant airway interventions while she recovered from sedation and quickly returned to her baseline. <Dipti Wallace MD - Last Filed: 08/10/24 11:55> Procedural Sedation Indication: other (synchronized cardioversion) ASA Class: I Preparation: phototypesetting equipment monitor applied, pulse oximeter, capnometry used, supplemental O2 applied, suction/airway equipment at bedside and IV secured IV Etomidate dose (mg): 10 Complications: hypoventilation Interventions: airway repositioned Additional Comments: After obtaining written consent, the patient underwent procedural sedation with 10 mg of etomidate as noted above. Once sedated the patient underwent synchronized cardioversion at 200 J. Atrial flutter with a heart rate of 170 was successfully converted to atrial fibrillation (patient's baseline rhythm) though with ongoing RVR with rates in the 120s to 130s. Following this procedure, the patient did have episodes of hypoventilation that required jaw thrust, never required mechanical ventilation or positive pressure. She awoke and was maintaining her airway and oxygenation independently. She had no adverse vital sign changes. Procedural sedation performed by Dr. Dipti Wallace, who was present for all portions of the procedure. Medical Decision Making <ERIKA Villeda - Last Filed: 08/12/24 10:56> This dictation utilizes [id number] dictation software and may contain unedited grammatical errors. 74 year-old female presents to ED today by POV/ambulating with a chief complaint of tachycardia since last night, took a xanax and went to bed. Quality described as no chest pain, endorses feeling her heart racing- recent change to her AF meds including discontinuation of sotalol, no radiation to cough, fever, weakness, syncope, chest pain, nausea/vomiting, abdominal pain. Severity is described as 0-1/10. Palliating factors include nothing specific attempted. Provoking factors include nothing specific. Events leading up to the incident/Associated Symptoms: Patient has longstanding atrial fibrillation. Patients' medical history: History of DVT prophylaxis, UTI, hypokalemia, asthma, bronchiectasis, dizzy spells, PVD, atrial fibrillation. Family and social history: Lives at home with , eats normal diet, denies EtOH or tobacco use. Pertinent exam findings / vital signs include tachycardia heart 170 bpm, regular rate and rhythm, neuro intact, benign abdomen. Differential / pathologies of concern include SVT, AF with RVR, ACS, secondary causes of RVR including infection. Diagnostic studies of: -Chest x-ray, CBC, CMP, serial troponins, BNP, lipase, TSH, EKG. -XR Chest shows no acute findings -CBC shows mild leukocytosis of 12.5 nonspecific -CMP without actionable abnormality -Serial troponins X3 negative -BNP mildly elevated without baseline 1920 -Lipase mildly elevated but not to a level of acute pancreatitis -TSH within normal limits -Initial EKG shows SVT pattern with possible underlying atrial flutter, no evidence of torsades or polymorphic V. tach Interventions of: -Valsalva X2 was unsuccessful, attempted adenosine 6 mg IV push cardioversion which showed the rhythm converted to atrial flutter, at that time we decided to electrically cardiovert the patient, conscious sedation performed by Dr. Dipti Wallace, we shocked the patient and synchronized cardioversion with 200 J with reversion back to rate controlled A-fib, considered successful in this case as the patient's at her baseline. ED Course/Assessment/Plan: 74-year-old female could feel heart palpitations last night without any chest pain, she was found to be in atrial flutter/fib with SVT overlaid, we did electrocardioversion with return to her rate controlled atrial fibrillation, she has close follow-up with her outpatient cardiology providers, serial troponins are negative she was pain-free throughout entirety of visit, I suspect she can be discharged home and advised that she contact her electrophysiology team, chest x-ray is clear of any pulmonary edema, no widened mediastinum, laboratory workup shows a mild elevation of lipase and a nonspecific leukocytosis, do not suspect any septic pathology or etiology. Findings not consistent with ACS, V-fib, V. tach, CHF exacerbation, pneumonia or other source of infection as cause of arrhythmia. Disposition of supraventricular tachycardia, unspecified atrial fibrillation with RVR. Patient verbalized understanding of the plan and return to ED criteria and engaged in shared decision making. Medical Records Medical records reviewed: Yes I reviewed the patient's medical records. Imaging Data Radiologic Study: Attestation: I personally reviewed and interpreted this imaging study as follows: Imaging: X-Ray Radiologist's impression: EXAM: XR PORTABLE CHEST AP CLINICAL HISTORY: arrhythmia TECHNIQUE: 2D digital imaging was performed. COMPARISON: CR XR CHEST 2V PA LATERAL from 07/29/2024 FINDINGS: Exam is limited by multiple overlying monitoring leads. LUNGS: Grossly clear where visualized. No pleural abnormality seen. HEART: Normal size. Partially obscured. AORTA: Normal diameter. BONES: Unremarkable old left rib fracture. Soft tissues: Unremarkable. IMPRESSION: No acute findings. Lab Data Lab results reviewed: Yes I reviewed the patient's lab results. Labs: Laboratory Tests Range/Units 08/10/24 08/10/24 08/10/24 10:20 11:17 13:37 WBC (4.4-10.8) 10^3/uL 12.56 H RBC (3.93-5.22) 10^6/uL 4.25 Hgb (11.2-15.7) g/dL 14.3 Hct (36.0-46.0) % 43.5 MCV (80-95) fL 102 H MCH (27.0-33.0) pg 33.6 H MCHC (32.0-36.0) % 32.9 RDW (11.7-14.6) % 13.4 Plt Count (130-400) 10^3/uL 437 H MPV (8.0-11.0) fL 8.9 Immature Gran % % 0.6 Neutrophils % % 69.9 Lymphocytes % % 18.6 Monocytes % % 8.1 Eosinophils % % 2.0 Basophils % % 0.8 Nucleated RBC % (0.0-0.3) % 0.0 Absolute Neutrophils (1.2-6.7) 10^3/uL 8.78 H Absolute Lymphocytes (1.2-3.4) 10^3/uL 2.34 Absolute Monocytes (0.1-0.8) 10^3/uL 1.02 H Absolute Eosinophils (0.0-0.7) 10^3/uL 0.25 Absolute Basophils (0.0-0.2) 10^3/uL 0.10 Sodium (136-145) mmol/L 140 Potassium (3.5-5.1) mmol/L 4.1 Chloride (98-107) mmol/L 101 Carbon Dioxide (21.0-32.0) mmol/L 29.4 Anion Gap (3-11) mmol/L 9.6 BUN (7-18) mg/dL 11 Creatinine (0.55-1.02) mg/dL 1.0 Est GFR (CKD-EPI 2020) (mL/min/1.73m2) 58.75 Glucose (74-106) mg/dL 128 H Calcium (8.5-10.1) mg/dL 9.7 Total Bilirubin (0.2-1.0) mg/dL 0.37 AST (15-37) U/L 28 ALT (14-59) U/L 27 Alkaline Phosphatase (46-116) U/L 55 Troponin I (<or=51) ng/L 4 6 7 NT-Pro-B Natriuret Pep (<300) pg/mL 1920 H Total Protein (6.4-8.2) g/dL 8.2 Albumin (3.4-5.0) g/dL 3.1 L Lipase (<78) U/L 119 H TSH (0.36-3.74) uIU/mL 1.40 Quality:SDOH Health Related Social Needs: No Data to Display Critical Care Time <ERIKA Villeda - Last Filed: 08/12/24 10:56> Critical Care Time Critical Care Time: Yes Total Critical Care Time: 45 Attestation: Upon my evaluation, this patient had a high probability of imminent or life- threatening deterioration due to atrial fibrillation with RVR, which required my direct attention, intervention, and personal management. I have personally provided 45 minutes of critical care time exclusive of time spent on separately billable procedures. Time includes review of laboratory data, radiology results, discussion with consultants, and monitoring for potential decompensation. Interventions were performed as documented above, including monitoring of critical vital signs, ordering critical medications from bedside, and re-assessing effectiveness, repeating critical exam findings, and reviewing patients' chart. [facility] <ERIKA Villeda - Last Filed: 08/12/24 10:56> All Active Problems Supraventricular tachycardia, unspecified (Chronic) Atrial fibrillation with RVR (Acute) Hypomagnesemia (Acute) Acute hypokalemia (Acute) COVID-19 (Acute) Bronchiectasis (Acute) Asthma (Chronic) Mycobacterium avium complex (Acute) Dizziness of unknown cause (Acute) Hypertension (Chronic) Dizzy spells (Acute) Peripheral vascular disease (Chronic) Atrial fibrillation (Chronic) Sensorineural hearing loss of both ears (Acute) Uterine prolapse (Acute) Cystocele and rectocele with incomplete uterovaginal prolapse (Acute) Stage IV rectocele. 07/2020 #3 incontinence dish with support . 08/15/2020 76 mm short stem Gellhorn placed. Patient wishes referral to continence center at definitive surgery. Lymphadenopathy, inguinal (Acute) left Dupuytren's contracture of both hands (Acute) Status post bilateral partial palmar fasciectomy with involvement of little finger DOS: 07/26/2021 Medical History Pneumonia Sepsis Discharge planning issues Contraindication to deep vein thrombosis (DVT) prophylaxis Melanoma chest Eustachian tube dysfunction UTI (urinary tract infection) Diarrhea Unspecified injury of head, initial encounter Thrush, oral B12 deficiency Osteoporosis Urinary incontinence Surgical History Hx of vaginal surgery History of lung biopsy Colonoscopy - MAC (01/28/17) Arthroplasty of knee (12/21/15) RIGHT KNEE W/PARTIAL LATERAL MENISECTOMY AND LIMITED CHONDROPLASTY OF TROCHLEAS AND MESIAL ASCPECT OF MEDIAL FEMORAL CONDYLE/DR. HASKINS Social History Smoking/Tobacco Use Status: Former Tobacco Use Smoking risk assessment performed?: Yes Alcohol Intake: current Alcohol Intake frequency: 0-2 drinks per day Alcohol type: wine Drug use: Never Substance use type: does not use Housing: house Current gender identity: female Do you feel safe at home: Yes Do you feel safe in your relationship?: Yes
[2024-08-10 10:27] LABS: Abs Immature Grans 0.08 10^3/uL (0.0-0.06); Absolute Eosinophil Count 0.25 10^3/uL (0.0-0.7); Absolute Monocyte Count 1.02 10^3/uL (0.1-0.8); Absolute Neutrophil Count 8.78 10^3/uL (1.2-6.7); Basophils % 0.8 %; HCT 43.5 % (36.0-46.0); HGB 14.3 g/dL (11.2-15.7); Immature Grans % 0.6 %; Lymphocytes % 18.6 %; MCH 33.6 pg (27.0-33.0); MCHC 32.9 % (32.0-36.0); MCV 102 fL (80-95); MPV 8.9 fL (8.0-11.0); Monocytes % 8.1 %; Neutrophils % 69.9 %; Platelet Count 437 10^3/uL (130-400); RBC 4.25 10^6/uL (3.93-5.22); RDW 13.4 % (11.7-14.6); RDW-SD 50.6 fL; WBC 12.56 10^3/uL (4.4-10.8)
[2024-08-10 10:28] LABS: Absolute Lymphocyte Count 2.34 10^3/uL (1.2-3.4)
[2024-08-10] MEDS: Adenosine 6 MG/2 ML VIAL IVP (10:30)
[2024-08-10] MEDS: Etomidate 20 MG/10 ML VIAL (10:40)
--- NOTE | 2024-08-10 10:48 | NUR.NOTE ---
10mg etomidate 10:48 200j sync cardio 10:49
[2024-08-10 10:53] LABS: ALT 27 U/L (14-59); AST 28 U/L (15-37); Albumin 3.1 g/dL (3.4-5.0); Alkaline Phosphatase 55 U/L (46-116); Anion Gap 9.6 mmol/L (3-11); BUN 11 mg/dL (7-18); Bilirubin, Total 0.37 mg/dL (0.2-1.0); CO2 29.4 mmol/L (21.0-32.0); Chloride 101 mmol/L (98-107); Estimated GFR 58.75 (mL/min/1.73m2); Glucose 128 mg/dL (74-106); Lipase 119 U/L (<78); NT-proBNP 1920 pg/mL (<300); Potassium 4.1 mmol/L (3.5-5.1); Sodium 140 mmol/L (136-145); Total Protein 8.2 g/dL (6.4-8.2); Troponin I 4 ng/L (<or=51)
[2024-08-10 10:58] LABS: Calcium 9.7 mg/dL (8.5-10.1)
--- NOTE | 2024-08-10 11:23 | RESPIRATORY ---
08/10/24 Called to ED for conscious sedation. ETCO2, suction, ambu-bag, Oxymask, oral/nasal airway set up at bedside. Pt preoxygenated on 4L cannula with 10L oxymask. Pt maintained SPO2 around 98%. ETCO2 dropped to zero during sedation, jaw-thrust maneuver used and pt began to ventilate; jaw-thrust used for around 4-5 minutes along with telling pt to breathe. Pt began to wake up and ventilate with no assistance. Pt maintaining conversation and weaned to RA, pt asking for phone and blanket. Pt left on RA with saturations in the high 90s. RN notified of pt's condition and this RT left. Pt states she does have a smoking history and gets SOB
--- NOTE | 2024-08-10 11:37 | DI.RAD_ITS ---
Exam(s) XR PORTABLE CHEST AP EXAM: XR PORTABLE CHEST AP CLINICAL HISTORY: arrhythmia TECHNIQUE: 2D digital imaging was performed. COMPARISON: CR XR CHEST 2V PA LATERAL from 07/29/2024 FINDINGS: Exam is limited by multiple overlying monitoring leads. LUNGS: Grossly clear where visualized. No pleural abnormality seen. HEART: Normal size. Partially obscured. AORTA: Normal diameter. BONES: Unremarkable old left rib fracture. Soft tissues: Unremarkable. IMPRESSION: No acute findings. DATA REPOSITORY: RADIATION DOSE DELIVERED:
[2024-08-10 11:47] LABS: Troponin I 6 ng/L (<or=51)
--- NOTE | 2024-08-10 12:00 | RT.EKG_ITS ---
APPROVED REPORT Exam: Resting ECG Reason for Exam: post-cardioversion Patient Location: E HR:80 bpm ECG Measurements Heart Rate 80 AXIS AZ [id number] P [id number] QRSd 92 QRS -18 QT 370 T 24 QTc 428 Conclusion Atrial fibrillation, rate 80 No STEMI Compared to priors, A-flutter with RVR has converted to A-fib
[2024-08-10 14:02] LABS: Troponin I 7 ng/L (<or=51)
--- NOTE | 2024-08-10 20:08 | ED.FU.B_ITS ---
Follow Up Plan: This patient called the ED this evening as she reported that her watch was telling her that she was in atrial fibrillation. Chart review indicates patient underwent synchronized cardioversion following procedural sedation and analgesia.Following conversion she was in rate controlled atrial fibrillation. She was due to take digoxin this evening at 8:00 which I encouraged her to take. I also encouraged ED reassessment. She was in [place] and was planning on going to the ED in [place].
== END 2024-08-10 14:57 | disposition home or self-care (01) ==
PROVIDERS: Emergency Provider Physician Assistant; PCP Family Medicine
DX: I48.92 Unspecified atrial flutter (principal); I48.91 Unspecified atrial fibrillation; R06.89 Other abnormalities of breathing; I47.10 Supraventricular tachycardia, unspecified; I10 Essential (primary) hypertension; J45.909 Unspecified asthma, uncomplicated; Z86.718 Personal history of other venous thrombosis and embolism; Z79.01 Long term (current) use of anticoagulants; Z79.899 Other long term (current) drug therapy
CPT/HCPCS: 36415; 80053; 83690; 92960; 93005; 99156; 99291; 71045; 83880; 84443; 84484; 85025; 93010; J0153

== ENCOUNTER → 2024-08-24 08:39 | Outpatient (BNVA) | payer MEDICARE, SELFPAY | PROVIDERS: PCP Family Medicine; Referring Provider Family Medicine; Visit Provider Physician Assistant Surgical | DX: J45.909 Unspecified asthma, uncomplicated (principal); J47.9 Bronchiectasis, uncomplicated; A31.0 Pulmonary mycobacterial infection | CPT/HCPCS: 99214 ==

== ENCOUNTER 2024-10-19 14:43 | Outpatient (REF) | payer MEDICARE, SELFPAY | END 2024-10-19 14:44 | disposition home or self-care (01) | LOC: LBN 14:43 | PROVIDERS: PCP Family Medicine; Visit Provider Pediatrics | DX: A31.0 Pulmonary mycobacterial infection (principal) | CPT/HCPCS: 87116; 87206 ==

== ENCOUNTER → 2024-10-27 10:39 | Outpatient (BNVA) | payer MEDICARE, SELFPAY | PROVIDERS: PCP Family Medicine; Referring Provider Family Medicine; Visit Provider Physician Assistant Surgical | DX: J45.909 Unspecified asthma, uncomplicated (principal); J47.9 Bronchiectasis, uncomplicated; A31.0 Pulmonary mycobacterial infection | CPT/HCPCS: 99214 ==

== ENCOUNTER 2024-12-29 15:50 | Outpatient (REF) | payer MEDICARE, SELFPAY ==
[2024-12-29 21:55] LABS: Bilirubin Negative (Negative); Blood Large (Negative); Clarity Clear (Clear); Glucose Negative (Negative); Ketones Negative (Negative); Leukocyte Esterase Small (Negative); Nitrite Negative (Negative); Urobilinogen 0.2 mg/dL (Up to 0.2); pH 5.5 (5-8)
[2024-12-29 22:11] LABS: RBC >50 HPF (0-2)
[2024-12-29 22:13] LABS: C & S Indicated? Yes
== END 2024-12-29 15:51 | disposition home or self-care (01) ==
LOC: NCHCN 15:50
PROVIDERS: Family Medicine; PCP Family Medicine; Visit Provider Family Medicine
DX: R30.9 Painful micturition, unspecified (principal); R82.89 Other abnormal findings on cytological and histological examination of urine
CPT/HCPCS: 81003; 81015; 87086

== ENCOUNTER 2024-12-30 02:25 | Outpatient (RCR) | payer MEDICARE, SELFPAY ==
[2024-12-30] MEDS: Denosumab 60 MG/ML SYR SC (11:10)
== END 2025-01-16 23:59 | disposition home or self-care (01) ==
LOC: INF 02:25
PROVIDERS: PCP Family Medicine; Visit Provider Family Medicine
DX: M81.0 Age-related osteoporosis without current pathological fracture (principal)
CPT/HCPCS: 96372; J0897

== ENCOUNTER 2025-03-18 16:51 | Outpatient (REF) | payer MEDICARE, SELFPAY ==
[2025-03-18 20:49] LABS: Glucose Negative (Negative)
[2025-03-18 20:56] LABS: RBC >50 HPF (0-2)
[2025-03-18 20:57] LABS: C & S Indicated? Yes
== END 2025-03-18 16:52 | disposition home or self-care (01) ==
LOC: NCHCN 16:51
PROVIDERS: PCP Family Medicine; Visit Provider Family Medicine
DX: R39.89 Other symptoms and signs involving the genitourinary system (principal)
CPT/HCPCS: 81003; 81015; 87086

== ENCOUNTER 2025-03-26 21:52 | Outpatient (REF) | payer MEDICARE, SELFPAY ==
[2025-03-26 21:50] LABS: Glucose Negative (Negative)
== END 2025-03-26 21:53 | disposition home or self-care (01) ==
LOC: NCHCN 21:52
PROVIDERS: PCP Family Medicine; Visit Provider Family Medicine
DX: R39.89 Other symptoms and signs involving the genitourinary system (principal)
CPT/HCPCS: 81003

== ENCOUNTER 2025-05-13 03:55 | Outpatient (CLI) | payer MEDICARE, SELFPAY ==
--- NOTE | 2025-05-13 | DI.DEXA_ITS ---
Exam(s) XR DEXA BONE DENSITY W/WO GRANT EXAM: XR DEXA BONE DENSITY W/WO GRANT CLINICAL HISTORY: OSTEOPOROSIS M81.0 TECHNIQUE: [employer] C densitometer analysis of left hip, lumbar spine and left forearm. Lateral survey image of the thoracic and lumbar spine. COMPARISON: CR XR DEXA BONE DENSITY W/WO GRANT from 05/02/2023 CR XR Chest 2 Views from 11/02/2024 FINDINGS: Lateral view of the thoracic and lumbar spine shows no evidence of compression fractures. A wedge-shaped compression fracture is again noted T8, stable from recent chest x-ray. Normal bone mineral density of the lumbar spine Bone mineral density measurements of the lumbar spine correspond to a total T- score of -0.7, in the normal range. This is not significantly changed from 2022 but represents a 12.6 percent decrease when compared with 2014. Bone mineral density measurements of the left hip correspond to a total T-score of -2.3. This represents a 12.4 percent increase from 2022 and at the 5.3 percent increase when compared with 2014. The femoral neck T-score is -2.8, in the osteoporotic range. Theleft forearm bone mineral density measurements correspond to a T-score of the distal 3rd of -2.0, in the osteopenic range. This is not significantly changed from prior exams. IMPRESSION: Normal bone mineral density of the lumbar spine. Osteopenia of the forearm. Osteoporosis of the hip.
--- NOTE | 2025-05-13 | DI.MAMMO_ITS ---
Exam(s) MAMMO SCREENING EXAM: MAMMO SCREENING CLINICAL HISTORY: SCREENING MAMMO Z12.31 TECHNIQUE: Mammograms were interpreted according to the usual protocol including computer analysis with CAD system, tomosynthesis and C-view imaging. COMPARISON: 2015 through 2023 FINDINGS: The breasts are composed of scattered fibroglandular densities, Breast Density category B. No suspicious masses or suspicious microcalcifications are seen. No skin thickening or abnormal axillary lymph nodes are seen. There has been no significant change from prior exams. IMPRESSION: BI-RADS Category 1, Negative mammogram Yearly screening mammography is recommended. Breast Density - Category B - There are scattered areas of fibroglandular density. Breast density Category C or D implies that the patient has dense breast tissue. Dense breast tissue can make it harder to find cancer on a mammogram. Dense breast tissue is also associated with an increased risk of breast cancer. This information about the result of the mammogram report was provided to the patient to raise their awareness. Use this report when you speak with the patient about their risks for breast cancer, which includes their family history. At that time, you may recommend additional screening tests (Ultrasound or MRI) as these tests may add significant information. A negative radiographic report should not delay biopsy if a dominant or clinically suspicious mass is present. Up to ten percent of cancers are not identified on mammography. A negative report may reinforce clinical impression. Adenosis and dense breasts may obscure an underlying neoplasm. False positive reports average 6 to 10%. Patient will receive a letter notifying them of these results.
== END 2025-05-13 04:15 ==
LOC: DI 03:55
PROVIDERS: PCP Family Medicine; Visit Provider Family Medicine
DX: M81.0 Age-related osteoporosis without current pathological fracture (principal); Z12.31 Encounter for screening mammogram for malignant neoplasm of breast
CPT/HCPCS: 77063; 77067; 77080

== ENCOUNTER → 2025-05-24 12:38 | Outpatient (BNVA) | payer MEDICARE, SELFPAY | PROVIDERS: PCP Family Medicine; Referring Provider Family Medicine; Visit Provider Physician Assistant Surgical | DX: A31.0 Pulmonary mycobacterial infection (principal); J45.909 Unspecified asthma, uncomplicated; J47.9 Bronchiectasis, uncomplicated; J18.9 Pneumonia, unspecified organism | CPT/HCPCS: 99214 ==

== ENCOUNTER 2025-06-01 03:31 | Outpatient (CLI) | payer MEDICARE, SELFPAY ==
[2025-06-01] MEDS: Methacholine 100 MG VIAL IH (12:13)
[2025-06-01] MEDS: Inhaler, Assist Device 1 EACH MC (12:13)
[2025-06-01] MEDS: Albuterol HFA 18 GM 200 PUFF INH IH (12:14)
--- NOTE | 2025-06-02 07:21 | W.PFT ---
Date of service: 06/01/25 Time of Service: 10:05 Pulmonary Function Test Result Indications: Asthma Impression 1. Good patient effort was noted. ATS standards for reproducibility were met. 2. Spirometry showed moderate obstructive lung disease with an FEV1 of 77% (1.62 L) 3. TLC was normal. No evidence of restrictive lung disease 4. DLCO was 75%, consistent with a mild defect in alveolar gas exchange 5. At 16 mg/mL of methacholine, there was a 15% drop in FEV1 Conclusion: - moderate obstructive lung disease with reduced DLCO, suggestive of COPD - negative methacholine challenge testing - clinical correlation recommended
== END 2025-06-01 03:32 | disposition home or self-care (01) ==
LOC: RT 03:32
PROVIDERS: PCP Family Medicine; Visit Provider Physician Assistant Surgical
DX: J45.909 Unspecified asthma, uncomplicated (principal); J47.9 Bronchiectasis, uncomplicated; A31.0 Pulmonary mycobacterial infection
CPT/HCPCS: 94070; 94726; 94729; 95070; J7674

== ENCOUNTER 2025-07-06 03:13 | Outpatient (RCR) | payer MEDICARE, SELFPAY ==
[2025-07-06] MEDS: Denosumab 60 MG/ML SYR SC (11:06)
== END 2025-07-18 23:59 | disposition home or self-care (01) ==
LOC: INF 03:13
PROVIDERS: PCP Family Medicine; Visit Provider Family Medicine
DX: M81.0 Age-related osteoporosis without current pathological fracture (principal)
CPT/HCPCS: 96372; J0897